=== PATIENT | female | born 1970 ===

== ENCOUNTER 2020-03-19 17:15 | Outpatient (REF) | payer MEDICAID, OTHER, SELFPAY | END 2020-03-19 17:16 | disposition home or self-care (01) | LOC: HO.LAB 17:15 | PROVIDERS: Visit Provider Internal Medicine | DX: Z20.828 Contact with and (suspected) exposure to other viral communicable diseases (principal) | CPT/HCPCS: 87635 ==

== ENCOUNTER → 2020-03-28 14:00 | Outpatient (BNVA) | payer MEDICAID, OTHER, SELFPAY | PROVIDERS: Visit Provider Nurse Practitioner Gerontology | DX: E11.319 Type 2 diabetes mellitus with unspecified diabetic retinopathy without macular edema (principal); E11.42 Type 2 diabetes mellitus with diabetic polyneuropathy; Z79.4 Long term (current) use of insulin; Z79.84 Long term (current) use of oral hypoglycemic drugs; Z71.3 Dietary counseling and surveillance | CPT/HCPCS: 82947; 99214 ==

== ENCOUNTER 2020-04-12 09:07 | Outpatient (REF) | payer MEDICAID, OTHER, SELFPAY ==
[2020-04-12 10:53] LABS: Creatinine Urine 50.13 mg/dL; Microalbum/Creatinine Ratio Ur 37.9 ug/mg cr
[2020-04-12 11:04] LABS: Alanine Aminotransferase 24 U/L (0-31); Albumin Level 4.5 g/dL (3.5-5.0); Alkaline Phosphatase 78 U/L (39-117); Anion Gap 13 (12-20); Aspartate Amino Transferase 24 U/L (5-31); Bilirubin Total 0.2 mg/dL (0.0-1.0); Blood Urea Nitrogen 12 mg/dL (9-16); Calcium 9.1 mg/dL (8.4-10.2); Carbon Dioxide 30 mmol/L (22-29); Chloride 102 mmol/L (96-108); Cholesterol 161 mg/dL; Estimated Glomerular Filt Rate > 60; Glucose Fasting 163 mg/dL (60-99); HDL Cholesterol 67 mg/dL; LDL Cholesterol Calculated 76 mg/dl; Potassium 4.8 mmol/l (3.3-5.1); Sodium 140 mmol/L (135-145); Total Protein 7.5 g/dL (6.5-8.0); Triglycerides 92 mg/dL
[2020-04-13 10:07] LABS: LDL Cholesterol Direct 79 mg/dL (<100)
== END 2020-04-12 09:08 | disposition home or self-care (01) ==
LOC: HO.LAB 09:07
PROVIDERS: PCP Emergency Medicine; Visit Provider Nurse Practitioner Gerontology
DX: E11.319 Type 2 diabetes mellitus with unspecified diabetic retinopathy without macular edema (principal)
CPT/HCPCS: 80053; 80061; 82043; 83721

== ENCOUNTER 2020-04-22 12:19 | Outpatient (REF) | payer MEDICAID, OTHER, SELFPAY | END 2020-04-22 12:20 | disposition home or self-care (01) | LOC: HO.LAB 12:19 | PROVIDERS: Visit Provider Internal Medicine | DX: Z20.828 Contact with and (suspected) exposure to other viral communicable diseases (principal) | CPT/HCPCS: C9803; U0003 ==

== ENCOUNTER 2020-05-16 10:05 | Outpatient (REF) | payer MEDICAID, OTHER, SELFPAY | END 2020-05-16 10:06 | disposition home or self-care (01) | LOC: HO.LAB 10:05 | PROVIDERS: Visit Provider Internal Medicine | DX: Z20.828 Contact with and (suspected) exposure to other viral communicable diseases (principal) | CPT/HCPCS: C9803; U0003 ==

== ENCOUNTER 2020-07-01 16:39 | Outpatient (REF) | payer MEDICAID, OTHER, SELFPAY | END 2020-07-01 16:40 | disposition home or self-care (01) | LOC: HO.LAB 16:39 | PROVIDERS: Visit Provider Internal Medicine | DX: Z20.822 Contact with and (suspected) exposure to COVID-19 (principal) | CPT/HCPCS: 36415; C9803; U0003 ==

== ENCOUNTER → 2020-10-10 14:36 | Outpatient (BNVA) | payer OTHER, SELFPAY | PROVIDERS: PCP Emergency Medicine; Visit Provider Nurse Practitioner Gerontology | DX: E11.319 Type 2 diabetes mellitus with unspecified diabetic retinopathy without macular edema (principal); E78.5 Hyperlipidemia, unspecified | CPT/HCPCS: 82947 ==

== ENCOUNTER 2020-12-11 09:53 | Outpatient (REF) | payer OTHER, SELFPAY ==
[2020-12-11 11:09] LABS: Alanine Aminotransferase 24 U/L (0-31); Albumin Level 4.2 g/dL (3.5-5.0); Alkaline Phosphatase 105 U/L (39-117); Anion Gap 13 (12-20); Aspartate Amino Transferase 23 U/L (5-31); Bilirubin Total 0.4 mg/dL (0.0-1.0); Blood Urea Nitrogen 11 mg/dL (9-16); Calcium 9.6 mg/dL (8.4-10.2); Carbon Dioxide 29 mmol/L (22-29); Chloride 103 mmol/L (96-108); Cholesterol 177 mg/dL; Estimated Glomerular Filt Rate > 60; Glucose Fasting 190 mg/dL (60-99); HDL Cholesterol 53 mg/dL; LDL Cholesterol Calculated 97 mg/dl; Potassium 5.2 mmol/L (3.3-5.1); Sodium 140 mmol/L (135-145); Total Protein 7.3 g/dL (6.5-8.0); Triglycerides 138 mg/dL
[2020-12-11 11:17] LABS: Creatinine Urine 31.63 mg/dL; Microalbumin Urine < 5.0 mg/L
== END 2020-12-11 09:54 | disposition home or self-care (01) ==
LOC: HO.LAB 09:53
PROVIDERS: Visit Provider Nurse Practitioner Gerontology
DX: E11.319 Type 2 diabetes mellitus with unspecified diabetic retinopathy without macular edema (principal); E78.5 Hyperlipidemia, unspecified; E87.5 Hyperkalemia; Z79.4 Long term (current) use of insulin; Z71.3 Dietary counseling and surveillance
CPT/HCPCS: 36415; 80053; 80061; 82043; 82947; 99212

== ENCOUNTER → 2021-12-02 09:40 | Outpatient (BNVA) | payer MEDICAID, OTHER, SELFPAY | PROVIDERS: PCP Nurse Practitioner; Visit Provider Nurse Practitioner Gerontology | DX: E11.319 Type 2 diabetes mellitus with unspecified diabetic retinopathy without macular edema (principal); E78.5 Hyperlipidemia, unspecified; Z79.4 Long term (current) use of insulin | CPT/HCPCS: 82947; 99212 ==

== ENCOUNTER 2021-12-25 09:36 | Outpatient (REF) | payer MEDICAID, OTHER, SELFPAY ==
--- NOTE | ~2021-12-25 | MM_ITS ---
EXAMINATION: MM SCREENING DIGITAL BREAST TOMOSYNTHESIS, BILATERAL CLINICAL INFORMATION: Screening. Asymptomatic. The lifetime risk of breast cancer based on the Tyrer-Cuzick Model is 8.6%. COMPARISON: Mammography: October 07, 2017 and studies dating back to February 19, 2011 TECHNIQUE: Digital breast tomosynthesis is performed in both the craniocaudal and mediolateral oblique views along with computer-aided detection (CAD). Synthesized 2D images are generated from the tomosynthesis. FINDINGS: There are scattered areas of fibroglandular density (ACR BI-RADS breast composition Category b). There are no significant masses, abnormal calcifications, or other abnormalities. MM/MM tomosynthesis screening BI IMPRESSION: There are no significant changes from prior study. ASSESSMENT: BI-RADS 1: Negative RECOMMENDATION: Routine annual mammography screening. This patient's information was entered into a reminder system with a target due date for their next mammogram.
== END 2021-12-25 09:37 | disposition home or self-care (01) ==
LOC: HO.MAMMO 09:36
PROVIDERS: Visit Provider Nurse Practitioner
DX: Z12.31 Encounter for screening mammogram for malignant neoplasm of breast (principal)
CPT/HCPCS: 77063; 77067

== ENCOUNTER 2023-01-27 09:34 | Outpatient (REF) | payer MEDICAID, OTHER, SELFPAY ==
[2023-01-27 11:21] LABS: MANUAL DIFF FLAG NO
[2023-01-27 11:42] LABS: Basophils Percent Auto 0.5 % (0-2); Eosinophils Absolute Auto 0.3 X10*3/uL (0.0-0.4); Eosinophils Percent Auto 4.4 % (0-4); Estimated Average Glucose 258 mg/dL; Hematocrit 40.2 % (37.0-47.0); Hemoglobin 12.5 g/dl (12.0-16.0); Hemoglobin A1c % 10.6 % (<6.0); Imm Gran Abs Auto 0.02 X10*3/uL (0.00-0.03); Imm Gran Pct Auto 0.3 % (0.0-0.4); Lymphocytes Percent Auto 30.9 % (20-40); Mean Corpuscular HGB Conc 31.1 g/dl (31.0-35.0); Mean Corpuscular Hemoglobin 24.4 pg (27.0-33.0); Mean Corpuscular Volume 78.5 fL (80.0-98.0); Mean Platelet Volume 10.3 fL (9.4-12.3); Monocytes Absolute Auto 0.5 X10*3/uL (0.1-1.2); Monocytes Percent Auto 6.9 % (2-11); Neutrophils Absolute Auto 3.7 x10*3/uL (2.0-8.3); Platelet Count 500 X10*3/uL (160-400); Red Blood Count 5.12 X10*6/uL (4.20-5.50); Red Cell Distribution Width 14.4 % (11.0-16.0); White Blood Count 6.5 X10*3/uL (4.8-10.8)
[2023-01-27 12:11] LABS: Syphilis Screen Nonreactive (Nonreactive)
[2023-01-27 12:18] LABS: HBS Num1 0.59 mIU/mL (0-7.99); HBc Num1 0.13 S/CO (0.00-0.79); HBsAGNum1 0.32 S/CO (0.00-0.99); HIV AB/AG Nonreactive (Nonreactive); HIV Num 1 0.06 S/CO (0.00-0.99); Hepatitis B Core Antibody Nonreactive (Nonreactive); Hepatitis B Surface Antigen Negative (Negative); ~Hepatitis B Surface Antibody NONREACTIVE (Nonreactive)
[2023-01-27 12:20] LABS: ~HepC Num1 0.09 S/CO (0.00-0.79); ~Hepatitis C Antibody Nonreactive (Nonreactive)
[2023-01-27 12:33] LABS: Microalbumin Urine < 5.0 mg/L
[2023-01-27 12:42] LABS: Alanine Aminotransferase 24 U/L (0-31); Albumin Level 4.1 g/dL (3.5-5.0); Alkaline Phosphatase 118 U/L (39-117); Anion Gap 15 (12-20); Aspartate Amino Transferase 23 U/L (5-31); Bilirubin Total 0.2 mg/dL (0.0-1.0); Blood Urea Nitrogen 17 mg/dL (9-16); Calcium 9.7 mg/dL (8.4-10.2); Carbon Dioxide 29 mmol/L (22-29); Chloride 100 mmol/L (96-108); Cholesterol 191 mg/dL (<200); Estimated Glomerular Filt Rate > 60; Glucose Random 233 mg/dL (60-115); HDL Cholesterol 55 mg/dL (>40); LDL Cholesterol Calculated 76 mg/dL (<100); Potassium 4.8 mmol/L (3.3-5.1); Sodium 139 mmol/L (135-145); Total Protein 7.9 g/dL (6.5-8.0); Triglycerides 303 mg/dL (<150)
[2023-01-27 12:45] LABS: TSH reflex Free T4 0.72 uIU/mL (0.32-4.0)
[2023-01-27 12:47] LABS: Folate 15.4 ng/mL (> or = 4.0); Vitamin B12 944 pg/mL (200-900)
[2023-01-27 13:18] LABS: CT PCR NOT DETECTED (Not Detect.); NG PCR NOT DETECTED (Not Detect.)
[2023-01-27 18:08] LABS: Iron 51 mcg/dL (30-160); Percent Iron Saturation 13 % (15-50); Total Iron Binding Capacity 407 mcg/dL (228-428); Unsaturated Iron Binding 356 ug/dL
[2023-01-27 18:23] LABS: Ferritin 17 ng/mL (10-250)
[2023-01-30 00:13] LABS: TS Negative Control Passed; TS Panel A 0; TS Panel B 2; TS Positive Control Passed; TSpotTB Negative (Negative)
[2023-02-01 01:54] LABS: VITAMIN D (1,25 OH) D3 51 pg/mL; Vit D (1,25-Dihydroxy) Total 51 pg/mL (18-72); Vitamin D (1,25 OH) D2 <8 pg/mL
== END 2023-01-27 09:35 | disposition home or self-care (01) ==
LOC: HO.HHCL 09:34
PROVIDERS: Visit Provider Student in an Organized Health Care Education/Training Program
DX: Z00.00 Encounter for general adult medical examination without abnormal findings (principal)
CPT/HCPCS: 0353U; 80053; 80061; 82043; 82607; 82652; 82728; 82746; 83036; 83540; 84443; 85025; 86481; 86704; 86706; 86780; 86803; 87340; 87389

== ENCOUNTER 2023-02-15 13:37 | Outpatient (REF) | payer MEDICAID, OTHER, SELFPAY ==
--- NOTE | ~2023-02-15 | MM_ITS ---
EXAMINATION: MM SCREENING DIGITAL BREAST TOMOSYNTHESIS, BILATERAL CLINICAL INFORMATION: Screening. Asymptomatic. COMPARISON: Mammography: This study is compared with prior exams dating back to 2010. TECHNIQUE: Digital breast tomosynthesis is performed in both the craniocaudal and mediolateral oblique views along with computer-aided detection (CAD). Synthesized 2D images are generated from the tomosynthesis. FINDINGS: There are scattered areas of fibroglandular density (ACR BI-RADS breast composition Category b). There are no significant masses, abnormal calcifications, or other abnormalities. MM/MM tomosynthesis screening BI IMPRESSION: No mammographic evidence of malignancy. ASSESSMENT: BI-RADS BI-RADS 1 - Negative RECOMMENDATION: Routine annual mammography screening. 1 year F/U This examination should not preclude the clinical evaluation of a suspicious palpable abnormality. This patient's information was entered into a reminder system with a target due date for their next mammogram.
== END 2023-02-15 13:38 | disposition home or self-care (01) ==
LOC: HO.MAMMO 13:37
PROVIDERS: PCP Student in an Organized Health Care Education/Training Program; Visit Provider Student in an Organized Health Care Education/Training Program
DX: Z12.31 Encounter for screening mammogram for malignant neoplasm of breast (principal)
CPT/HCPCS: 77063; 77067

== ENCOUNTER → 2023-02-15 13:45 | Outpatient (BNV) | payer MEDICAID, SELFPAY | PROVIDERS: PCP Student in an Organized Health Care Education/Training Program; Visit Provider Radiology Diagnostic Radiology | DX: Z12.31 Encounter for screening mammogram for malignant neoplasm of breast (principal) | CPT/HCPCS: 77063; 77067 ==

== ENCOUNTER 2023-07-29 11:07 | Outpatient (REF) | payer MEDICAID, SELFPAY ==
[2023-07-29 13:21] LABS: Hematocrit 41.2 % (37.0-47.0); Mean Corpuscular HGB Conc 31.6 g/dl (31.0-35.0); Mean Corpuscular Hemoglobin 24.4 pg (27.0-33.0); Mean Corpuscular Volume 77.4 fL (80.0-98.0); Mean Platelet Volume 10.6 fL (9.4-12.3); Platelet Count 481 X10*3/uL (160-400); Red Blood Count 5.32 X10*6/uL (4.20-5.50); Red Cell Distribution Width 14.7 % (11.0-16.0); White Blood Count 6.7 X10*3/uL (4.8-10.8)
[2023-07-29 13:34] LABS: Estimated Average Glucose 237 mg/dL; Hemoglobin A1c % 9.9 % (<6.0)
[2023-07-29 13:49] LABS: Alanine Aminotransferase 32 U/L (0-31); Albumin Level 4.6 g/dL (3.5-5.0); Alkaline Phosphatase 87 U/L (39-117); Anion Gap 17 (12-20); Aspartate Amino Transferase 32 U/L (5-31); Bilirubin Total 0.3 mg/dL (0.0-1.0); Blood Urea Nitrogen 13 mg/dL (9-16); Calcium 10.3 mg/dL (8.4-10.2); Carbon Dioxide 28 mmol/L (22-29); Chloride 101 mmol/L (96-108); Cholesterol 169 mg/dL (<200); Estimated Glomerular Filt Rate > 60; Glucose Random 140 mg/dL (60-115); HDL Cholesterol 61 mg/dL (>40); Iron 52 mcg/dL (30-160); LDL Cholesterol Calculated 81 mg/dL (<100); Percent Iron Saturation 11 % (15-50); Potassium 4.8 mmol/L (3.3-5.1); Sodium 141 mmol/L (135-145); Total Iron Binding Capacity 484 mcg/dL (228-428); Total Protein 8.4 g/dL (6.5-8.0); Triglycerides 138 mg/dL (<150); Unsaturated Iron Binding 432 ug/dL
[2023-07-29 13:54] LABS: Creatinine Urine 42.56 mg/dL; Microalbum/Creatinine Ratio Ur 39.9 ug/mg cr (<30)
[2023-07-29 14:06] LABS: Ferritin 12 ng/mL (10-250)
[2023-07-29 14:07] LABS: Folate 14.9 ng/mL (> or = 4.0); Vitamin B12 937 pg/mL (200-900)
== END 2023-07-29 11:08 | disposition home or self-care (01) ==
LOC: HO.HHCL 11:07
PROVIDERS: Visit Provider Student in an Organized Health Care Education/Training Program
DX: E11.69 Type 2 diabetes mellitus with other specified complication (principal); Z79.4 Long term (current) use of insulin
CPT/HCPCS: 36415; 80053; 80061; 82043; 82570; 82607; 82728; 82746; 83036; 83540; 85027

== ENCOUNTER 2023-09-07 10:16 | Outpatient (AMB) | payer MEDICAID, SELFPAY ==
--- NOTE | 2023-09-07 10:28 | MHC.OFFVIS ---
Intake Vital Signs 09/07/23 10:34 Height 4 ft 11 in Weight 138 lb BMI 27.9 BP 102/60 Blood Pressure Location Lt brachial Position Sitting Pulse 99 Intake Visit Reasons: Colonoscopy Screening Intake Note: Patient new consult for 1st pre colonoscopy screening. Patient cc: no appetite and denies any other GI issues. Industrial Arts Teacher Required: Yes Industrial Arts Teacher Name: rocky Accompanied by: Daughter Allergies CITALOPRAM Allergy (Mild, Uncoded 12/11/20 15:01) rash HYDROBROMIDE Allergy (Unknown, Uncoded 12/11/20 15:01) unknown Medication List - Last Reconciled 09/07/23 by Ksenia Bonilla PA-C alcohol swabs (Alcohol Prep Pads) pad topical aspirin 81 mg PO DAILY atorvastatin 40 mg PO BEDTIME blood sugar diagnostic As directed blood-glucose meter (FreeStyle Lite Meter kit) As directed three times a day ergocalciferol (vitamin D2) 1,250 mcg PO QWEEK fenofibrate micronized 134 mg PO DAILY flash glucose scanning reader (FlazioStyle Shanelle 2 [place]) As directed flash glucose sensor (FreeStyle Shanelle 2 Sensor kit) As directed every 2 weeks gabapentin 100 mg PO insulin degludec (Tresiba FlexTouch U-200 insulin) 20 units (0.1 mL) subcut BEDTIME lancets (TRUEplus Lancets) As directed lisinopril 5 mg PO DAILY loratadine 10 mg PO DAILY PRN metformin 1,000 mg (2 x 500 mg) PO BID byzffgtbawje-qcsx-vimcl acid 18-400 mg-mcg 1 tab PO QAM omeprazole 20 mg PO QAM pen needle, diabetic (Pentips) As directed repaglinide 1 tab breakfast and dinner, 3 tabs lunch orally 3 times a day; 30 days venlafaxine ER 37.5 mg PO HPI HPI Comments History of Present Illness Details A 53 y/o female -referred for index screening colonoscopy- she does not know what a colonoscopy is Discussed procedure Normal bowels Appetite is good She has no GI or general complaints [facility] Medical History Dyslipidemia Hypertriglyceridemia Retinopathy Type 2 diabetes mellitus with unspecified diabetic retinopathy without macular edema Surgical History Hx of mammogram Hx of section Family History Father CVD (cardiovascular disease) Mother Diabetes mellitus Sister Diabetes mellitus Social History Household Members: Spouse Alcohol intake: never Patient Tobacco Use Status: Never used Tobacco Review of Systems Const All systems reviewed & are unremarkable except as noted in HPI and below GI Denies abdominal pain and Denies change in bowel habits Physical Exam Vital Signs: Last Vital Signs Pulse 99 09/07/23 10:34 BP 102/60 09/07/23 10:34 BMI result Body Mass Index 27.9 Const General: cooperative, healthy appearing and comfortable Eyes Sclerae: sclerae normal Cardio Rate: regular rate Rhythm: regular rhythm Heart sounds: S1 normal heart sound present and S2 normal heart sound present GI Palpation (GI): Soft to palpation and nontender Auscultation: normal bowel sounds Skin General skin exam: no rashes or lesions noted Extrem General: Yes full ROM Psych Appearance: well kempt Mental Status: mental status grossly normal Speech and movement: Clear speech present Affect: normal affect Attitude: cooperative Assessment & Plan Assessment & Plan (1) Encounter for screening colonoscopy: Comment: Index screening colonoscopy-not a great historian reviewed medicine list Code(s): Z12.11 - Encounter for screening for malignant neoplasm of colon Plan Colonoscopy MG prep pls review meds 1/2 dose insulin connor before No oral DM day before No DM meds morning of procedure Orders: Orders Colonoscopy - GI Use Only 09/07/23 Z12.11 - Encounter for screening for malignant neoplasm of colon Medications: New bisacodyl (Dulcolax (bisacodyl)) Day before procedure @ 12 noon Take 4 tablets by mouth followed by large glass of water 20 mg (4 x 5 mg) PO ONCE 1 day PRN 4 tabs 0RF colonoscopy prep Z12.11 - Encounter for screening for malignant neoplasm of colon polyethylene glycol 3350 (Miralax) Take as directed by mouth the day before your procedure. 238 grams PO ONCE 1 day PRN 238 grams 0RF laxative effect Patient Instructions: Colonoscopy Needs escort rare risks MG prep, reviewed- lit given pls review meds 1/2 dose insulin connor before No oral DM day before No DM meds morning of procedure Have up-to-date medication list available for reference No major barriers to understanding worried Coding Level of Care Code New Pt Level 3 (45398) Diagnoses Encounter for screening colonoscopy Z12.11 Time Spent (min) 30 Comment [id number]
[2023-09-07 10:34] VITALS: BP 102/60; PULSE 99; BMI 27.9
== END 2023-09-07 12:21 | disposition home or self-care (01) ==
PROVIDERS: PCP Student in an Organized Health Care Education/Training Program; Visit Provider Physician Assistant
DX: Z12.11 Encounter for screening for malignant neoplasm of colon (principal); Z01.818 Encounter for other preprocedural examination
CPT/HCPCS: 99203

== ENCOUNTER → 2023-09-07 10:16 | Outpatient (BNVA) | payer MEDICAID, SELFPAY | PROVIDERS: PCP Student in an Organized Health Care Education/Training Program; Visit Provider Physician Assistant | DX: Z12.11 Encounter for screening for malignant neoplasm of colon (principal) | CPT/HCPCS: 99212 ==

== ENCOUNTER → 2023-09-10 13:27 | Outpatient (BNVA) | payer OTHER, SELFPAY | PROVIDERS: PCP Student in an Organized Health Care Education/Training Program; Visit Provider Physician Assistant | DX: Z09 Encounter for follow-up examination after completed treatment for conditions other than malignant neoplasm (principal); S06.0X1A Concussion with loss of consciousness of 30 minutes or less, initial encounter; W01.10XA Fall on same level from slipping, tripping and stumbling with subsequent striking against unspecified object, initial encounter; M54.2 Cervicalgia; R07.81 Pleurodynia | CPT/HCPCS: 99204 ==

== ENCOUNTER → 2023-09-17 10:56 | Outpatient (BNVA) | payer OTHER, SELFPAY | PROVIDERS: PCP Student in an Organized Health Care Education/Training Program; Visit Provider Physician Assistant | DX: M54.2 Cervicalgia (principal); S06.0X0A Concussion without loss of consciousness, initial encounter; X58.XXXA Exposure to other specified factors, initial encounter; R42 Dizziness and giddiness; R07.89 Other chest pain | CPT/HCPCS: 99214 ==

== ENCOUNTER → 2023-09-24 11:25 | Outpatient (BNVA) | payer OTHER, SELFPAY | PROVIDERS: PCP Student in an Organized Health Care Education/Training Program; Visit Provider Physician Assistant | DX: M54.2 Cervicalgia (principal); S06.0X1A Concussion with loss of consciousness of 30 minutes or less, initial encounter; W01.10XA Fall on same level from slipping, tripping and stumbling with subsequent striking against unspecified object, initial encounter | CPT/HCPCS: 99213 ==

== ENCOUNTER → 2023-10-01 11:33 | Outpatient (BNVA) | payer OTHER, SELFPAY | PROVIDERS: PCP Student in an Organized Health Care Education/Training Program; Visit Provider Physician Assistant | DX: S06.0X1A Concussion with loss of consciousness of 30 minutes or less, initial encounter (principal); W01.10XA Fall on same level from slipping, tripping and stumbling with subsequent striking against unspecified object, initial encounter; M54.2 Cervicalgia; M54.42 Lumbago with sciatica, left side | CPT/HCPCS: 99213 ==

== ENCOUNTER → 2023-10-14 11:24 | Outpatient (BNVA) | payer OTHER, SELFPAY | PROVIDERS: PCP Student in an Organized Health Care Education/Training Program; Visit Provider Physician Assistant | DX: R51.9 Headache, unspecified (principal); M54.2 Cervicalgia | CPT/HCPCS: 99214 ==

== ENCOUNTER → 2023-10-28 11:02 | Outpatient (BNVA) | payer OTHER, SELFPAY | PROVIDERS: PCP Student in an Organized Health Care Education/Training Program; Visit Provider Physician Assistant | DX: S06.0X1D Concussion with loss of consciousness of 30 minutes or less, subsequent encounter (principal); W01.10XD Fall on same level from slipping, tripping and stumbling with subsequent striking against unspecified object, subsequent encounter; R42 Dizziness and giddiness; M54.2 Cervicalgia | CPT/HCPCS: 99214 ==

== ENCOUNTER → 2023-11-18 11:17 | Outpatient (BNVA) | payer OTHER, SELFPAY | PROVIDERS: PCP Student in an Organized Health Care Education/Training Program; Visit Provider Physician Assistant Medical | DX: F07.81 Postconcussional syndrome (principal); R42 Dizziness and giddiness; M54.2 Cervicalgia; M24.812 Other specific joint derangements of left shoulder, not elsewhere classified | CPT/HCPCS: 99213 ==

== ENCOUNTER → 2023-12-01 11:11 | Outpatient (BNVA) | payer OTHER, SELFPAY | PROVIDERS: PCP Student in an Organized Health Care Education/Training Program; Visit Provider Physician Assistant | DX: S06.0X1D Concussion with loss of consciousness of 30 minutes or less, subsequent encounter (principal); W01.10XD Fall on same level from slipping, tripping and stumbling with subsequent striking against unspecified object, subsequent encounter; R42 Dizziness and giddiness; M54.2 Cervicalgia; M25.512 Pain in left shoulder | CPT/HCPCS: 99213 ==

== ENCOUNTER 2023-12-21 08:09 | Outpatient (REF) | payer OTHER, SELFPAY ==
--- NOTE | ~2023-12-21 | XR_ITS ---
EXAMINATION: XR SHOULDER, LEFT CLINICAL INFORMATION: Pain left shoulder. COMPARISON: None available. TECHNIQUE: Two views of the left shoulder. FINDINGS: Advanced degenerative changes with joint space narrowing and hypertrophic change in the acromioclavicular joint. Amorphous soft tissue calcification adjacent to the greater tuberosity suggests calcific tendinitis. A 5 mm nodule in the periphery of the left upper lobe with adjacent smaller pulmonary nodules should be evaluated with dedicated views of the chest. XR/XR shoulder LT min 2V IMPRESSION: 1. Advanced degenerative changes in the acromioclavicular joint. 2. Amorphous soft tissue calcification adjacent to the greater tuberosity suggests calcific tendinitis. 3. A 5 mm nodule in the periphery of the left upper lobe with adjacent smaller pulmonary nodules should be evaluated with dedicated views of the chest.
== END 2023-12-21 08:10 | disposition home or self-care (01) ==
LOC: HO.HOSX 08:09
PROVIDERS: Visit Provider Orthopaedic Surgery
DX: M75.42 Impingement syndrome of left shoulder (principal)
CPT/HCPCS: 73030; 99212

== ENCOUNTER 2023-12-21 08:57 | Outpatient (AMB) | payer OTHER, SELFPAY ==
--- NOTE | 2023-12-21 09:05 | A.OFFVIS_ITS ---
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 The patient states that she her neck and shoulder on 09/08/2023 when she fell at work. Since that time her symptoms have gotten worse. The patient did go to formal physical therapy which gave her minimal relief. She has also tried Tylenol and anti-inflammatory medicines which gave her mild relief. She states that she has difficulty lifting her left hand above shoulder height. The patient states that she did have an MRI at [facility] . She is not sure if the MRI was of her left shoulder or her cervical spine. The patient's MRI is not available today. Allergies CITALOPRAM Allergy (Mild, Uncoded 12/11/20 15:01) rash HYDROBROMIDE Allergy (Unknown, Uncoded 12/11/20 15:01) unknown Medication List - Last Reconciled 12/21/23 by Kristopher Ross MD alcohol swabs (Alcohol Prep Pads) pad topical aspirin 81 mg PO DAILY atorvastatin 40 mg PO BEDTIME bisacodyl (Dulcolax (bisacodyl)) 20 mg (4 x 5 mg) PO ONCE PRN 1 day blood sugar diagnostic As directed blood-glucose meter (FreeStyle Lite Meter kit) As directed three times a day cyclobenzaprine 5 mg PO BEDTIME PRN cyclobenzaprine 5 mg PO BEDTIME PRN ergocalciferol (vitamin D2) 1,250 mcg PO QWEEK fenofibrate micronized 134 mg PO DAILY flash glucose scanning reader (FreeStyle Shanelle 2 [place]) As directed flash glucose sensor (FreeStyle Shanelle 2 Sensor kit) As directed every 2 weeks gabapentin 100 mg PO insulin degludec (Tresiba FlexTouch U-200 insulin) 20 units (0.1 mL) subcut BEDTIME lancets (TRUEplus Lancets) As directed lidocaine 5% 1 patch topically 1 patch daily q 12 hours; leave on most painful area for up to 12 hrs lisinopril 5 mg PO DAILY loratadine 10 mg PO DAILY PRN magnesium oxide 400 mg PO DAILY meclizine 25 mg PO BID PRN metformin 1,000 mg (2 x 500 mg) PO BID mtrmlxbabbun-dmun-ggmvr acid 18-400 mg-mcg 1 tab PO QAM naproxen 500 mg PO BID PRN omeprazole 20 mg PO QAM ondansetron HCl 8 mg PO Q8-12H PRN 4 days pen needle, diabetic (Pentips) As directed polyethylene glycol 3350 (Miralax) 238 grams PO ONCE PRN 1 day repaglinide 1 tab breakfast and dinner, 3 tabs lunch orally 3 times a day; 30 days riboflavin (vitamin B2) 400 mg PO DAILY venlafaxine ER 37.5 mg PO PFSH Medical History Dyslipidemia Hypertriglyceridemia Retinopathy Type 2 diabetes mellitus with unspecified diabetic retinopathy without macular edema Surgical History Hx of mammogram Hx of section Family History Father CVD (cardiovascular disease) Mother Diabetes mellitus Sister Diabetes mellitus Social History Household Members: Spouse Alcohol intake: never Patient Tobacco Use Status: Never used Tobacco Physical Exam Vital Signs: BMI result Body Mass Index 27.9 Const Other: Well-nourished well-developed very friendly female awake alert and oriented x3 in no acute distress Extrem Other: Left shoulder examination shows decreased range of motion when compared to her right shoulder, positive impingement signs, 4+ out of 5 strength with supraspinatus testing, no instability Results Reviewed Results Reviewed: X-rays of the patient's left shoulder show moderate acromioclavicular joint narrowing, a type 2 acromion, a small calcium deposit within the supraspinatus tendon, no acute bony abnormalities Assessment & Plan Assessment & Plan (1) Left shoulder pain: Code(s): M25.512 - Pain in left shoulder Category: Medical Plan Ms. Sanchez presents with neck pain which radiates into her left arm as well as left shoulder pain due to impingement syndrome and possible rotator cuff tearing. The patient states that she did have an MRI of either her neck or left shoulder recently. Those films are not available today. The patient states that she will get the films and report. She will then make a follow-up appointment with me to discuss the findings and treatment options. She will continue with her range of motion exercises in the meantime to prevent stiffness. Feel free to call me at any time should questions regarding her orthopedic management arise. I spent 20 minutes in reviewing the patient's records and imaging studies, will ansari the patient and documenting in the medical record. Orders: Orders XR shoulder LT min 2V 12/21/23 M25.512 - Pain in left shoulder Coding Level of Care Code Est Pt Level 3 (60115) Diagnoses Left shoulder pain M25.512
[2023-12-21 09:06] VITALS: BMI 27.9
[2023-12-21 09:27] VITALS: BMI 27.9
== END 2023-12-21 09:44 | disposition home or self-care (01) ==
PROVIDERS: PCP Student in an Organized Health Care Education/Training Program; Visit Provider Orthopaedic Surgery
DX: M25.512 Pain in left shoulder (principal)
CPT/HCPCS: 99213

== ENCOUNTER 2024-01-12 13:43 | Outpatient (AMB) | payer OTHER, SELFPAY ==
--- NOTE | 2024-01-12 13:45 | A.OFFVIS_ITS ---
Intake Visit Reasons: Left shoulder pain, Neck pain Intake Note: Lottie a 53 year old female who presents with complaints of neck pain which radiates down her left arm to her left hand as well as left shoulder pain. The patient states that she her neck and shoulder on 09/08/2023 when she fell at work. Since that time her symptoms have gotten worse. The patient did go to formal physical therapy which gave her minimal relief. She has also tried Tylenol and anti-inflammatory medicines which gave her mild relief. She states that she has difficulty lifting her left hand above shoulder height. The patient did have an MRI of her cervical spine performed at [facility] in [place] on 11/10/2023. . Tire Repair Mechanic Required: Yes Tire Repair Mechanic Language: Foam Machine Operator Services: Tire Repair Mechanic Present Tire Repair Mechanic Name: OmerSARAI/WILSON Information Interpreted: non-clinical & clinical Allergies CITALOPRAM Allergy (Mild, Uncoded 01/12/24 13:45) rash HYDROBROMIDE Allergy (Unknown, Uncoded 01/12/24 13:45) unknown Medication List - Last Reconciled 01/12/24 by Kristopher Ross MD alcohol swabs (Alcohol Prep Pads) pad topical aspirin 81 mg PO DAILY atorvastatin 40 mg PO BEDTIME bisacodyl (Dulcolax (bisacodyl)) 20 mg (4 x 5 mg) PO ONCE PRN 1 day blood sugar diagnostic As directed blood-glucose meter (FreeStyle Lite Meter kit) As directed three times a day cyclobenzaprine 5 mg PO BEDTIME PRN cyclobenzaprine 5 mg PO BEDTIME PRN ergocalciferol (vitamin D2) 1,250 mcg PO QWEEK fenofibrate micronized 134 mg PO DAILY flash glucose scanning reader (FreeStyle Shanelle 2 [place]) As directed flash glucose sensor (FreeStyle Shanelle 2 Sensor kit) As directed every 2 weeks gabapentin 100 mg PO insulin degludec (Tresiba FlexTouch U-200 insulin) 20 units (0.1 mL) subcut BEDTIME lancets (TRUEplus Lancets) As directed lidocaine 5% 1 patch topically 1 patch daily q 12 hours; leave on most painful area for up to 12 hrs lisinopril 5 mg PO DAILY loratadine 10 mg PO DAILY PRN magnesium oxide 400 mg PO DAILY meclizine 25 mg PO BID PRN metformin 1,000 mg (2 x 500 mg) PO BID plnffxbjxzos-jgsk-kqnsp acid 18-400 mg-mcg 1 tab PO QAM naproxen 500 mg PO BID PRN omeprazole 20 mg PO QAM ondansetron HCl 8 mg PO Q8-12H PRN 4 days pen needle, diabetic (Pentips) As directed polyethylene glycol 3350 (Miralax) 238 grams PO ONCE PRN 1 day repaglinide 1 tab breakfast and dinner, 3 tabs lunch orally 3 times a day; 30 days riboflavin (vitamin B2) 400 mg PO DAILY venlafaxine ER 37.5 mg PO PFSH Medical History Retinopathy Hypertriglyceridemia Type 2 diabetes mellitus with unspecified diabetic retinopathy without macular edema Dyslipidemia Surgical History Hx of mammogram Hx of section Family History Father CVD (cardiovascular disease) Mother Diabetes mellitus Sister Diabetes mellitus Social History Household Members: Spouse Alcohol intake: never Patient Tobacco Use Status: Never used Tobacco Physical Exam Const Other: Well-nourished well-developed very friendly female awake alert and oriented x3 in no acute distress Neck Other: Cervical spine examination shows left-sided paraspinal muscle tenderness, pain with range of motion, positive Spurling's test Extrem Other: Left shoulder examination shows decreased range of motion when compared to her right shoulder, 4+ out of 5 strength with supraspinatus testing, positive impingement signs, tenderness over her acromioclavicular joint, no instability Results Reviewed Results Reviewed: MRI report of the patient's cervical spine shows evidence of ?mild uncovertebral joint osteophytes bilaterally more on left, mild left neural foraminal narrowing? most significant at levels C3-C4 and C6-C7 Assessment & Plan Assessment & Plan (1) Neck pain: Code(s): M54.2 - Cervicalgia Category: Medical (2) Left shoulder pain: Code(s): M25.512 - Pain in left shoulder Category: Medical Plan Ms. Sanchez presents with neck pain due to cervical spondylosis as well as left shoulder pain and weakness possibly due to rotator cuff tearing. Thus, I will send the patient for an MRI of her left shoulder for further evaluation. I will also have her evaluated by Dr. Machuca from our pain management department to further discuss the treatment options for her neck pain. I will see the patient back following her left shoulder MRI to discuss the findings and treatment options. Feel free to call me at any time should questions regarding her orthopedic management arise. I spent 22 minutes in reviewing the patient's records and imaging studies, seeing the patient and documenting in the medical record. Orders: Orders MR shoulder LT wo con Today M25.512 - Pain in left shoulder Referrals Pain Management Referral M54.2 - Cervicalgia Coding Level of Care Code Est Pt Level 3 (18080) Diagnoses Neck pain M54.2 Left shoulder pain M25.512
== END 2024-01-12 14:04 | disposition home or self-care (01) ==
PROVIDERS: PCP Student in an Organized Health Care Education/Training Program; Visit Provider Orthopaedic Surgery
DX: M25.512 Pain in left shoulder (principal); M47.892 Other spondylosis, cervical region
CPT/HCPCS: 99213

== ENCOUNTER → 2024-01-12 13:43 | Outpatient (BNVA) | payer OTHER, SELFPAY | PROVIDERS: PCP Student in an Organized Health Care Education/Training Program; Visit Provider Orthopaedic Surgery | DX: M47.812 Spondylosis without myelopathy or radiculopathy, cervical region (principal); M25.512 Pain in left shoulder | CPT/HCPCS: 99212 ==

== ENCOUNTER 2024-01-25 12:22 | Outpatient (REF) | payer OTHER, SELFPAY ==
--- NOTE | ~2024-01-25 | MR_ITS ---
EXAMINATION: MR SHOULDER WITHOUT CONTRAST, LEFT CLINICAL INFORMATION: Left shoulder pain. Decreased range of motion. Injury on 09/08/2023. COMPARISON: Left shoulder radiographs dated 12/21/2023. TECHNIQUE: MRI of the shoulder without contrast was performed on a high-field scanner. FINDINGS: ROTATOR CUFF: Within the distal supraspinatus tendon there is lobulated low T1/low T2 signal measuring up to 1.6 x 1.0 cm with adjacent edema, consistent with calcific tendinitis as seen on the prior radiographs. No measurable rotator cuff tendon tear. No muscle atrophy or fatty infiltration. BICEPS: Small amount of fluid within the proximal long head biceps tendon sheath, consistent with mild tenosynovitis. No tendon tear. CORACOACROMIAL ARCH: The undersurface of the acromion is curved with no subacromial spur. Mild acromioclavicular osteoarthritis. Trace fluid and edema within the subacromial subdeltoid bursa, consistent with minimal bursitis. LABRUM/CAPSULE: No labral tear. Intact joint capsule. GLENOHUMERAL JOINT/MARROW: Intact articular cartilage. No acute osseous injury. MR/MR shoulder LT wo con IMPRESSION: 1. Distal supraspinatus calcific tendinitis as seen on the prior radiographs. No measurable rotator cuff tendon tear. 2. Mild proximal long head biceps tenosynovitis without a measurable tendon tear. 3. Mild acromioclavicular osteoarthritis. Minimal subacromial subdeltoid bursitis. Electronically signed by: Cale Harrell MD 01/31/2024 05:46 AM EDT
== END 2024-01-25 12:23 | disposition home or self-care (01) ==
LOC: HO.MRI 12:22
PROVIDERS: PCP Student in an Organized Health Care Education/Training Program; Visit Provider Orthopaedic Surgery
DX: M25.512 Pain in left shoulder (principal)
CPT/HCPCS: 73221

== ENCOUNTER 2024-02-02 08:58 | Outpatient (AMB) | payer OTHER, SELFPAY ==
--- NOTE | 2024-02-02 09:01 | MHC.OFFVIS ---
Vital Signs 02/02/24 09:02 Height 4 ft 11 in Weight 138 lb BMI 27.9 Intake Visit Reasons: OV- MRI Review Left Shoulder Intake Note: Lottie a 53 year old female who presents with complaints of neck pain which radiates down her left arm to her left hand as well as left shoulder pain. The patient states that she her neck and shoulder on 09/08/2023 when she fell at work. Since that time her symptoms have gotten worse. The patient reports mild weakness when lifting her left hand above shoulder height. She has not had a cortisone injection. She has done physical therapy exercises which aggravated her pain. 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 Search Manager Required: Yes Search Manager Language: Human Resources Training Manager Name: Paul [phone] Allergies CITALOPRAM Allergy (Mild, Uncoded 01/12/24 13:45) rash HYDROBROMIDE Allergy (Unknown, Uncoded 01/12/24 13:45) unknown Medication List - Last Reconciled 02/02/24 by Kristopher Ross MD alcohol swabs (Alcohol Prep Pads) pad topical aspirin 81 mg PO DAILY atorvastatin 40 mg PO BEDTIME bisacodyl (Dulcolax (bisacodyl)) 20 mg (4 x 5 mg) PO ONCE PRN 1 day blood sugar diagnostic As directed blood-glucose meter (FreeStyle Lite Meter kit) As directed three times a day cyclobenzaprine 5 mg PO BEDTIME PRN cyclobenzaprine 5 mg PO BEDTIME PRN ergocalciferol (vitamin D2) 1,250 mcg PO QWEEK fenofibrate micronized 134 mg PO DAILY flash glucose scanning reader (FreeStyle Shanelle 2 [place]) As directed flash glucose sensor (FreeStyle Shanelle 2 Sensor kit) As directed every 2 weeks gabapentin 100 mg PO insulin degludec (Tresiba FlexTouch U-200 insulin) 20 units (0.1 mL) subcut BEDTIME lancets (TRUEplus Lancets) As directed lidocaine 5% 1 patch topically 1 patch daily q 12 hours; leave on most painful area for up to 12 hrs lisinopril 5 mg PO DAILY loratadine 10 mg PO DAILY PRN magnesium oxide 400 mg PO DAILY meclizine 25 mg PO BID PRN metformin 1,000 mg (2 x 500 mg) PO BID zfmtnoeycgoj-inup-hvuus acid 18-400 mg-mcg 1 tab PO QAM naproxen 500 mg PO BID PRN omeprazole 20 mg PO QAM ondansetron HCl 8 mg PO Q8-12H PRN 4 days pen needle, diabetic (Pentips) As directed polyethylene glycol 3350 (Miralax) 238 grams PO ONCE PRN 1 day repaglinide 1 tab breakfast and dinner, 3 tabs lunch orally 3 times a day; 30 days riboflavin (vitamin B2) 400 mg PO DAILY venlafaxine ER 37.5 mg PO PFSH Medical History Retinopathy Hypertriglyceridemia Type 2 diabetes mellitus with unspecified diabetic retinopathy without macular edema Dyslipidemia Surgical History Hx of mammogram Hx of section Family History Father CVD (cardiovascular disease) Mother Diabetes mellitus Sister Diabetes mellitus Social History Household Members: Spouse Alcohol intake: never Patient Tobacco Use Status: Never used Tobacco Physical Exam Vital Signs: BMI result Body Mass Index 27.9 Const Other: Well-nourished well-developed very friendly female awake alert and oriented x3 in no acute distress Extrem Other: Bilateral upper extremity examination shows good capillary refill, no skin lesions noted, normal sensation light touch Left shoulder examination shows decreased range of motion when compared to her right shoulder, 4+ out of 5 strength with supraspinatus testing, positive impingement signs, tenderness over her acromioclavicular joint, no instability Office Procedures Joint Injection/Aspiration Joint Injection/Aspiration Primary Site: left shoulder Prep: site was prepped using aseptic technique Injected: 40 mg of, DepoMedrol and 1% plain lidocaine Procedure: The patient tolerated the procedure well Coding 20353 - Large joint Procedure code (CPT) selection complete Results Reviewed Results Reviewed: MRI of the patient's left shoulder show severe acromioclavicular joint narrowing, a type 3 acromion, a small calcium deposit within her supraspinatus tendon, signal change within the supraspinatus tendon due to rotator cuff tendinosis versus a small rotator cuff tear Assessment & Plan Assessment & Plan (1) Impingement syndrome of left shoulder: Code(s): M75.42 - Impingement syndrome of left shoulder Category: Medical Plan Ms. Sanchez presents with left shoulder pain due to impingement syndrome, acromioclavicular joint arthritis, calcific tendinitis as well as rotator cuff tendinosis versus a small rotator cuff tear. I had a lengthy discussion with the patient regarding the treatment options. She wishes to hold off on surgery for as long as possible. I agree with this plan. The risks and benefits of a left shoulder cortisone injection were discussed at length with the patient. The patient wished to proceed. She tolerated the injection well. She will continue with her home stretching program to prevent stiffness. She will contact me prior to her follow-up appointment in 3 months should any questions or concerns arise. Feel free to call me at any time should questions regarding her orthopedic management arise. I spent 20 minutes in reviewing the patient's records and imaging studies, seeing the patient and documenting in the medical record. Orders: Orders AMB Joint Injection/Aspiration Today M75.42 - Impingement syndrome of left shoulder Coding Level of Care Code Est Pt Level 3 (95567) Diagnoses Impingement syndrome of left shoulder M75.42 CPT Codes Coding - 52249 Large joint: 18543 - Large joint ([id number])
[2024-02-02 09:02] VITALS: BMI 27.9
== END 2024-02-02 09:24 | disposition home or self-care (01) ==
PROVIDERS: PCP Student in an Organized Health Care Education/Training Program; Visit Provider Orthopaedic Surgery
DX: M75.42 Impingement syndrome of left shoulder (principal); W19.XXXA Unspecified fall, initial encounter; Z04.2 Encounter for examination and observation following work accident
CPT/HCPCS: 20610; 99213

== ENCOUNTER → 2024-02-02 08:58 | Outpatient (BNVA) | payer OTHER, SELFPAY | PROVIDERS: PCP Student in an Organized Health Care Education/Training Program; Visit Provider Orthopaedic Surgery | DX: M75.42 Impingement syndrome of left shoulder (principal) | CPT/HCPCS: 20610; 99212; J1010 ==

== ENCOUNTER 2024-02-03 14:36 | Outpatient (AMB) | payer OTHER, SELFPAY ==
--- NOTE | 2024-02-03 14:37 | A.OFFVIS_ITS ---
Vital Signs 3 02/03/24 14:45 Height 4 ft 11 in Weight 138 lb BMI 27.9 BP 132/70 Blood Pressure Location Rt brachial Position Sitting Pulse 78 Pulse Source Pulse Oximeter Pulse Oximetry (%) 98 Oxygen Delivery Method Room Air Intake Visit Reasons: Cervicalgia Intake Note: Pain today 01/14 Mattress Filler Required: Yes Mattress Filler Language: Renal Dialysis Technician Name: Juan José #[id number] Allergies CITALOPRAM Allergy (Mild, Uncoded 02/04/24 10:35) rash HYDROBROMIDE Allergy (Unknown, Uncoded 02/04/24 10:35) unknown HPI HPI Cervicalgia: Details: Patient is a 53-year-old Chinese-speaking female presents today for initial evaluation of neck pain with radiation into her left upper extremity and left shoulder pain. She was referred to us by Orthopedic office with managing her left shoulder pain. Patient attributes pain to recent work-related injury on 09/08/23 when she fell at work. Patient reports she has tried physical therapy in the past with minimal pain relief but has not tried PT since recent injury. She tried oral and topical medications, gentle stretching with continued symptoms. She has difficulty with overhead reaches, pulling, lifting, reaching backside pocket due to significant left shoulder pain. She received left shoulder cortisone injection yesterday at Orthopedics with 3 months follow-up for potential surgical evaluation. Neck pain is mostly axial with significant muscle spasms, left side worse than the right. Pain affects her daily activities and functioning, mood, sleep, and social interactions. Reports increased chronic headaches due to neck pain. Denies previous spine surgery or injections. Most recent MRI shows mild cervical spondylosis. To this point she has not tried any dedicated conservative treatment in the forms of physical therapy, chiropractic, acupuncture, TENS unit or neck injections. Denies any fever, chills, shortness of breath, chest pain or tightness, dizziness, cough, foot drop, weakness, bladder or bowel dysfunction or saddle anesthesia. Location: Neck radiates to left shoulder, limited left shoulder ROM due to pain Duration: 4 months due to work-related injury, slipped and fell backwards Characteristics of symptom or complaint: Aching, tightness, pulling, shooting, throbbing, spasming, heavy, sore Aggravating or associated factors: Any movement, lifting, pulling, overhead reaches Relieving factors: Tylenol, NSAIDs, gabapentin, lidocaine patches, cyclobenzaprine Treatment: PT, left shoulder cortisone injections 02/02/24 [facility] Medical History (Updated 02/03/24 @ 15:12 by GRISELDA Storey) Back pain Depression BRBPR (bright red blood per rectum) Hyperglycemia Grief Vaginal dryness Retinopathy Hypertriglyceridemia Type 2 diabetes mellitus with unspecified diabetic retinopathy without macular edema Dyslipidemia Surgical History Hx of mammogram Hx of section Family History Father CVD (cardiovascular disease) Mother Diabetes mellitus Sister Diabetes mellitus Social History Household Members: Spouse Alcohol intake: never Patient Tobacco Use Status: Never used Tobacco Advance Directives: No Advance Directives Information Provided: Yes Review of Systems Const All systems reviewed & are unremarkable except as noted in HPI and below Physical Exam Vital Signs: Last Vital Signs Pulse 78 02/03/24 14:45 BP 132/70 02/03/24 14:45 Pulse Ox 98 02/03/24 14:45 Oxygen Delivery Method Room Air 02/03/24 14:45 BMI result Body Mass Index 27.9 General: Appears afebrile. No acute distress. Alert and oriented. Mood and affect appropriate. Follows and participates in conversation appropriately. Respiratory effort is unlabored. No cough. Able to transition from sit to stand unassisted. Ambulates with bilaterally normal heel strike and toe off. Neck Neck: Yes normal visual inspection, Yes full ROM, Yes no lymphadenopathy, Yes supple, No anterior neck swelling, Yes no JVD and No prominent dorsocervical fat pad Back/Spine/Pelvis Cervical Spine: normal cervical lordosis, No collar present, No Lhermitte's sign positive, cervical muscular tenderness, pain with cervical ROM, No Cervical spine scars present, cervical spasm, No Cervical spine tenderness and No step off deformity Thoracic/Lumbar Spine: thoracic and lumbar spine normal to inspection, thoraco- lumbar ROM normal, No thoracic spinal tenderness and No lumbar spinal tenderness Extrem General: Yes capillary refill normal, Yes no clubbing, cyanosis or edema and Yes no calf tenderness Left upper extremity: shoulder/upper arm (Limited ROM due to pain.) Details: tenderness Location: of the A-C joint, over the biceps tendon and over the subacromial bursa and crepitus; no swelling, no ecchymosis, no deformity and no unsual warmth Results Reviewed Results Reviewed: MR SHOULDER WITHOUT CONTRAST LEFT 01/25/24 at [facility] INDICATION: Left shoulder pain. FINDINGS: Examination of the rotator cuff shows mild supraspinatus tendinopathy with localized bursal surface partial tearing proximal to the footprint best seen on series 11 image 13. This is small and is associated with mild subacromial subdeltoid bursitis. Infraspinatus is intact. Teres minor is intact. Subscapularis is intact. Long head biceps tendon is situated within the bicipital groove with no tear or subluxation. Glenohumeral articular cartilage is preserved. Grossly intact anterior and posterior labrum, though evaluation is limited. Superior labrum and biceps anchor are grossly intact. AC joint degenerative changes, mild. Anterior acromion is minimally curved. Rotator cuff muscle bulk is preserved. IMPRESSION: 1. Small bursal surface partial tear distal supraspinatus tendon proximal to the footprint, anterior in location. No full-thickness cuff tear. Mild subacromial subdeltoid bursitis. 2. Mild AC joint hypertrophic changes. Assessment & Plan Assessment & Plan (1) Cervical spondylosis: Code(s): M47.812 - Spondylosis without myelopathy or radiculopathy, cervical region Category: Medical (2) Impingement syndrome of left shoulder: Code(s): M75.42 - Impingement syndrome of left shoulder Category: Medical (3) Neck pain: Code(s): M54.2 - Cervicalgia Category: Medical (4) Left shoulder pain: Code(s): M25.512 - Pain in left shoulder Category: Medical (5) Muscle spasms of neck: Code(s): M62.838 - Other muscle spasm Category: Medical Plan Patient is recommended to start formal physical therapy and establish home exercise program for neck pain and left shoulder pain to reduce pain, spasms and effusion, restore motion and function, improve strength and flexibility and return to functional activities of daily living. Script provided today. No significant pain relief with PT, we will consider diagnostic cervical medial branch blocks as next steps. Follow-up with Orthopedics for left shoulder pain as planned. Patient received left shoulder cortisone injection yesterday. Patient encouraged daily physical activity, adequate hydration, good posture, gentle stretching exercises, well balanced diet, consider TENS unit, acupuncture and massage therapy. All questions and concerns been answered and patient agreed with the treatment plan. Follow-up after PT and sooner as needed. Orders: Orders 2 PT Evaluation and Treatment 02/03/24 M25.512 - Pain in left shoulder, M47.812 - Spondylosis without myelopathy or radiculopathy, cervical region, M54.2 - Cervicalgia, M62.838 - Other muscle spasm, M75.42 - Impingement syndrome of left shoulder Coding Level of Care Code New Pt Level 4 (43402) Complex EM visit Add On G2211 Diagnoses Cervical spondylosis M47.812 Impingement syndrome of left shoulder M75.42 Neck pain M54.2 Left shoulder pain M25.512 Muscle spasms of neck M62.838
[2024-02-03 14:45] VITALS: BP 132/70; PULSE 78; O2SAT 98; BMI 27.9
== END 2024-02-03 15:26 | disposition home or self-care (01) ==
PROVIDERS: PCP Student in an Organized Health Care Education/Training Program; Visit Provider Nurse Practitioner Family
DX: M47.812 Spondylosis without myelopathy or radiculopathy, cervical region (principal); M75.42 Impingement syndrome of left shoulder; M54.2 Cervicalgia; M25.512 Pain in left shoulder; M62.838 Other muscle spasm
CPT/HCPCS: 99204; G2211

== ENCOUNTER → 2024-02-03 14:36 | Outpatient (BNVA) | payer OTHER, SELFPAY | PROVIDERS: PCP Student in an Organized Health Care Education/Training Program; Visit Provider Nurse Practitioner Family | DX: M75.42 Impingement syndrome of left shoulder (principal); M47.812 Spondylosis without myelopathy or radiculopathy, cervical region; M62.838 Other muscle spasm | CPT/HCPCS: 99202 ==

== ENCOUNTER → 2024-02-04 08:58 | Day surgery (SDC) | payer MEDICAID, SELFPAY ==
--- NOTE | 2024-02-03 11:35 | HO.ANESPROP2 ---
HPI - Anesthesia Eval Consult details Narrative: 53yo F for Colonoscopy PMFSH Active Problems Active Problems: All Active Problems Impingement syndrome of left shoulder (Acute) Neck pain (Acute) Left shoulder pain (Acute) Encounter for screening colonoscopy (Acute) Serum potassium elevated (Acute) Type 2 diabetes mellitus with unspecified diabetic retinopathy without macular edema (Acute) Dyslipidemia (Acute) Past Medical History Medical History Retinopathy Hypertriglyceridemia Type 2 diabetes mellitus with unspecified diabetic retinopathy without macular edema Dyslipidemia Family History Family History Father CVD (cardiovascular disease) Mother Diabetes mellitus Sister Diabetes mellitus Surgical History Surgical History Hx of mammogram Hx of section Social History Social History Household Members: Spouse Alcohol intake: never Patient Tobacco Use Status: Never used Tobacco Meds Allergies Allergy/AdvReac Type Severity Reaction Status Date / Time CITALOPRAM Allergy Mild rash Uncoded 01/12/24 13:45 HYDROBROMIDE Allergy Unknown unknown Uncoded 01/12/24 13:45 Home Medications ?Medication ?Instructions ?Recorded ?Confirmed ?Last Taken ?Type alcohol swabs (Alcohol Prep Pads) pad topical 03/28/20 02/02/24 Unknown History aspirin 81 mg tablet,delayed 81 mg PO DAILY 03/28/20 02/02/24 Unknown History release blood sugar diagnostic #10 ea 03/28/20 02/02/24 Unknown History fenofibrate micronized 134 mg 134 mg PO DAILY 03/28/20 02/02/24 Unknown History capsule lisinopril 5 mg tablet 5 mg PO DAILY 03/28/20 02/02/24 Unknown History ergocalciferol (vitamin D2) 1,250 1,250 mcg PO QWEEK 10/10/20 02/02/24 Unknown History mcg (50,000 unit) capsule gabapentin 100 mg capsule 100 mg PO 10/10/20 02/02/24 Unknown History multivitamin-ferrous 1 tab PO QAM 10/10/20 02/02/24 Unknown History fumarate-folic acid 18 mg-400 mcg tablet omeprazole 20 mg capsule,delayed 20 mg PO QAM 10/10/20 02/02/24 Unknown History release venlafaxine 37.5 mg 37.5 mg PO 10/10/20 02/02/24 Unknown History capsule,extended release 24 hr loratadine 10 mg tablet 10 mg PO DAILY PRN allergies 12/11/20 02/02/24 Unknown History lancets 33 gauge (TRUEplus Lancets) #100 ea 12/02/21 02/02/24 Unknown History pen needle, diabetic 32 gauge x #50 ea 12/02/21 02/02/24 Unknown History (Pentips) Assessment and Plan Assessment Anesthesia Assessment: Chart Reviewed
--- NOTE | 2024-02-04 10:16 | MHC.SHP ---
Pre-Procedural Eval Section A - 24 Hr Update-Section A only Date of Service: 02/04/24 Section B - Complete if H&P > 30 days Chief Complaint: screening Relevant Family History (Specify if Yes): No Relevant Social History: None Present Medications: see Short Stay Collaborative assessment Medical History: Significant History (Dyslipidemia Hypertriglyceridemia Retinopathy Type 2 diabetes mellitus with unspecified diabetic retinopathy without macular edema) Allergies: Allergies Allergy/AdvReac Type Severity Reaction Status Date / Time CITALOPRAM Allergy Mild rash Uncoded 01/12/24 13:45 HYDROBROMIDE Allergy Unknown unknown Uncoded 01/12/24 13:45 Plan I have reviewed the history and physical and performed a pertinent physical examination on my patient. No changes have occurred unless specified. Time Spent With Patient Time: Total time managing care of this patient today ____ minutes.
[2024-02-04 10:38] LABS: Glucose, Whole Blood 188 mg/dL (60-115)
--- NOTE | 2024-02-04 12:25 | PC.NURSE ---
Patient in preop. States she ate yesterday, chicken, rice, vegetables, soup. Last meal at 1600. Patient states she finished prep however, still having formed soft brown stool. Dr. Jenkins made aware. Case cancelled. Patient educated on proper prep for colonoscopy.
== END ==
PROVIDERS: PCP Student in an Organized Health Care Education/Training Program; Visit Provider Internal Medicine Gastroenterology
DX: Z12.11 Encounter for screening for malignant neoplasm of colon (principal); Z53.8 Procedure and treatment not carried out for other reasons; E11.319 Type 2 diabetes mellitus with unspecified diabetic retinopathy without macular edema
CPT/HCPCS: 82947

== ENCOUNTER 2024-03-17 09:29 | Outpatient (REF) | payer OTHER, SELFPAY ==
[2024-03-17 11:24] LABS: Hematocrit 39.9 % (37.0-47.0); Mean Corpuscular HGB Conc 32.6 g/dl (31.0-35.0); Mean Corpuscular Hemoglobin 26.3 pg (27.0-33.0); Mean Corpuscular Volume 80.6 fL (80.0-98.0); Mean Platelet Volume 10.8 fL (9.4-12.3); Platelet Count 375 X10*3/uL (160-400); Red Blood Count 4.95 X10*6/uL (4.20-5.50); Red Cell Distribution Width 14.6 % (11.0-16.0); White Blood Count 5.6 X10*3/uL (4.8-10.8)
[2024-03-17 11:37] LABS: Estimated Average Glucose 232 mg/dL; Hemoglobin A1C 258.5586 umol/L; Hemoglobin A1c % 9.7 % (<6.0); Total Hemoglobin (HGBA1C) 3130.2532 umol/L
[2024-03-17 11:50] LABS: Creatinine Urine 32.69 mg/dL; Microalbum/Creatinine Ratio Ur 36.7 ug/mg cr (<30)
[2024-03-17 11:57] LABS: Syphilis Screen Nonreactive (Nonreactive)
[2024-03-17 11:58] LABS: Alanine Aminotransferase 22 U/L (0-31); Albumin Level 4.2 g/dL (3.5-5.0); Alkaline Phosphatase 138 U/L (39-117); Anion Gap 14 (12-20); Aspartate Amino Transferase 21 U/L (5-31); Bilirubin Total 0.2 mg/dL (0.0-1.0); Blood Urea Nitrogen 10 mg/dL (9-16); Calcium 9.3 mg/dL (8.4-10.2); Carbon Dioxide 28 mmol/L (22-29); Chloride 101 mmol/L (96-108); Cholesterol 180 mg/dL (<200); Estimated Glomerular Filt Rate > 60; Glucose Random 292 mg/dL (60-115); HDL Cholesterol 50 mg/dL (>40); Iron 45 mcg/dL (30-160); LDL Cholesterol Calculated 71 mg/dL (<100); Percent Iron Saturation 13 % (15-50); Potassium 4.3 mmol/L (3.3-5.1); Sodium 139 mmol/L (135-145); Total Iron Binding Capacity 345 mcg/dL (228-428); Total Protein 7.5 g/dL (6.5-8.0); Triglycerides 299 mg/dL (<150); Unsaturated Iron Binding 300 ug/dL
[2024-03-17 11:59] LABS: Ferritin 17 ng/mL (10-250); TSH reflex Free T4 0.42 uIU/mL (0.32-4.0)
[2024-03-17 12:00] LABS: HBS Num1 0.49 mIU/mL (0-7.99); HBc Num1 0.15 S/CO (0.00-0.79); HBsAGNum1 0.35 S/CO (0.00-0.99); HIV AB/AG Nonreactive (Nonreactive); HIV Num 1 0.05 S/CO (0.00-0.99); Hepatitis B Core Antibody Nonreactive (Nonreactive); Hepatitis B Surface Antigen Negative (Negative); ~HepC Num1 0.09 S/CO (0.00-0.79); ~Hepatitis B Surface Antibody NONREACTIVE (Nonreactive); ~Hepatitis C Antibody Nonreactive (Nonreactive)
[2024-03-17 12:24] LABS: Folate 14.9 ng/mL (> or = 4.0); Vitamin B12 442 pg/mL (200-900)
[2024-03-17 13:59] LABS: CT PCR NOT DETECTED (Not Detect.); NG PCR NOT DETECTED (Not Detect.)
== END 2024-03-17 09:30 | disposition home or self-care (01) ==
LOC: HO.HHCL 09:29
PROVIDERS: Visit Provider Student in an Organized Health Care Education/Training Program
DX: Z00.00 Encounter for general adult medical examination without abnormal findings (principal); R71.8 Other abnormality of red blood cells; Z13.1 Encounter for screening for diabetes mellitus
CPT/HCPCS: 36415; 80053; 80061; 82043; 82570; 82607; 82728; 82746; 83036; 83540; 84443; 85027; 86704; 86706; 86780; 86803; 87340; 87389; 87491; 87591

== ENCOUNTER 2024-05-03 11:17 | Outpatient (AMB) | payer OTHER, SELFPAY ==
--- NOTE | 2024-05-03 11:44 | A.OFFVIS_ITS ---
Vital Signs 05/03/24 11:45 Height 4 ft 11 in Weight 130 lb BMI 26.3 Intake Visit Reasons: OV: Left Shoulder pain Intake Note: Lottie is a 53 year old female who presents with complaints of left shoulder pain. She describes her pain as sharp in nature. She has had cortisone injections in the past which gave her fairly good relief. She has also tried Tylenol and anti-inflammatory medicines which gave her minimal relief. She has done physical therapy exercises which aggravated her pain. She wishes to hold off on surgery if at all possible. Train Control Electronic Technician Required: Yes Train Control Electronic Technician Language: Journeyman Painter Name: [id number] Allergies CITALOPRAM Allergy (Mild, Uncoded 05/03/24 11:46) rash HYDROBROMIDE Allergy (Unknown, Uncoded 05/03/24 11:46) unknown Medication List - Last Reconciled 05/03/24 by Kristopher Ross MD alcohol swabs (Alcohol Prep Pads) pad topical aspirin 81 mg PO DAILY atorvastatin 40 mg PO BEDTIME blood sugar diagnostic As directed blood-glucose meter (FreeStyle Lite Meter kit) As directed three times a day cholecalciferol (vitamin D3) 50 mcg PO QAM cyclobenzaprine 5 mg PO BEDTIME PRN empagliflozin (Jardiance) 25 mg PO QAM ergocalciferol (vitamin D2) 1,250 mcg PO QWEEK fenofibrate micronized 200 mg PO QAM ferrous gluconate 324 mg PO QAM flash glucose scanning reader (Sunnovationsyle Shanelle 2 [place]) As directed flash glucose sensor (FreeStyle Shanelle 2 Sensor kit) As directed every 2 weeks gabapentin 100 mg PO insulin degludec (Tresiba FlexTouch U-200 insulin) 20 units (0.1 mL) subcut BEDTIME lancets (TRUEplus Lancets) As directed lidocaine 5% 1 patch topically 1 patch daily q 12 hours; leave on most painful area for up to 12 hrs lisinopril 5 mg PO DAILY magnesium oxide 400 mg PO DAILY metformin 1,000 mg (2 x 500 mg) PO BID bjtducflqmgx-ovim-fpvin acid 18-400 mg-mcg 1 tab PO QAM naproxen 500 mg PO BID PRN omeprazole 20 mg PO QAM ondansetron HCl 8 mg PO Q8-12H PRN 4 days pen needle, diabetic (Pentips Pen Needle) As directed polyethylene glycol 3350 (Miralax) 238 grams PO ONCE PRN 1 day repaglinide 1 tab breakfast and dinner, 3 tabs lunch orally 3 times a day; 30 days riboflavin (vitamin B2) 400 mg PO DAILY [facility] History (Updated 02/03/24 @ 15:12 by GRISELDA Storey) Back pain Depression BRBPR (bright red blood per rectum) Hyperglycemia Grief Vaginal dryness Retinopathy Hypertriglyceridemia Type 2 diabetes mellitus with unspecified diabetic retinopathy without macular edema Dyslipidemia Surgical History Hx of mammogram Hx of section Family History Father CVD (cardiovascular disease) Mother Diabetes mellitus Sister Diabetes mellitus Social History Household Members: Spouse Alcohol intake: never Patient Tobacco Use Status: Never used Tobacco Physical Exam Vital Signs: BMI result Body Mass Index 26.3 Const Other: Well-nourished well-developed very friendly female awake alert and oriented x3 in no acute distress Extrem Other: Bilateral upper extremity examination shows good capillary refill, no skin lesions noted, normal sensation light touch Left shoulder examination shows slightly decreased range of motion when compared to her right shoulder, 4+ out of 5 strength with supraspinatus testing, positive impingement signs, tenderness over her acromioclavicular joint, no instability Office Procedures AMB Joint Injection/Aspiration Joint Injection/Aspiration Primary Site: left shoulder Prep: site was prepped using aseptic technique Injected: 40 mg of, DepoMedrol and 1% plain lidocaine Procedure: The patient tolerated the procedure well Coding 29911 - Large joint Procedure code (CPT) selection complete Assessment & Plan Assessment & Plan (1) Impingement syndrome of left shoulder: Code(s): M75.42 - Impingement syndrome of left shoulder Category: Medical Plan Ms. Sanchez presents with left shoulder pain due to impingement syndrome. I had a lengthy discussion with the patient regarding the treatment options. The risks and benefits of a left shoulder cortisone injection were discussed at length with the patient. The patient wished to proceed. She tolerated the injection well. She will continue with her home stretching program to prevent stiffness. She will contact me prior to her follow-up appointment in 3 months should any questions or concerns arise. Feel free to call me at any time should questions regarding her orthopedic management arise. I spent 22 minutes in reviewing the patient's records and imaging studies, will ansari the patient and documenting in the medical record. Orders: Orders AMB Joint Injection/Aspiration Today M75.42 - Impingement syndrome of left shoulder Coding Level of Care Code Est Pt Level 3 (35527) Complex EM visit Add On G2211 Diagnoses Impingement syndrome of left shoulder M75.42 CPT Codes Coding - 90283 Large joint: 73350 - Large joint ([id number])
[2024-05-03 11:45] VITALS: BMI 26.3
== END 2024-05-03 12:48 | disposition home or self-care (01) ==
PROVIDERS: PCP Student in an Organized Health Care Education/Training Program; Visit Provider Orthopaedic Surgery
DX: M75.42 Impingement syndrome of left shoulder (principal); Z04.2 Encounter for examination and observation following work accident
CPT/HCPCS: 20610; 99213

== ENCOUNTER → 2024-05-03 11:17 | Outpatient (BNVA) | payer OTHER, SELFPAY | PROVIDERS: PCP Student in an Organized Health Care Education/Training Program; Visit Provider Orthopaedic Surgery | DX: M75.42 Impingement syndrome of left shoulder (principal) | CPT/HCPCS: 20610; 99212; J1010; J2003 ==

== ENCOUNTER 2024-05-23 12:08 | Outpatient (REF) | payer OTHER, SELFPAY | END 2024-05-23 12:09 | disposition home or self-care (01) | LOC: HO.HHCLNP 12:08 | PROVIDERS: Visit Provider Emergency Medicine | DX: R10.13 Epigastric pain (principal) | CPT/HCPCS: 87338 ==

== ENCOUNTER 2024-06-06 11:22 | Outpatient (AMB) | payer OTHER, SELFPAY ==
[2024-06-06 11:29] VITALS: BMI 26.3
--- NOTE | 2024-06-06 11:29 | A.OFFVIS_ITS ---
Vital Signs 06/06/24 11:29 Height 4 ft 11 in Weight 130 lb BMI 26.3 Intake Visit Reasons: New prob- LT hip pain Intake Note: Lottie is a 53 year old female who presents with complaints of left hip pain after falling at work. The patient states that last month she fell while working. This is her 2nd fall at work this year. I saw her back in December for shoulder pain and neck pain after a different fall at work. The patient states that at times her left hip pain will radiate down her left leg. She does report intermittent low back pain as well. She has tried Tylenol and anti-inflammatory medicines which gave her minimal relief. Freelance Designer Required: Yes Freelance Designer Language: Clinic Nurse Name: SARAI Tello/WILSON Allergies CITALOPRAM Allergy (Mild, Uncoded 06/06/24 11:30) rash HYDROBROMIDE Allergy (Unknown, Uncoded 06/06/24 11:30) unknown Medication List - Last Reconciled 06/06/24 by Kristopher Ross MD alcohol swabs (Alcohol Prep Pads) pad topical aspirin 81 mg PO DAILY atorvastatin 40 mg PO BEDTIME blood sugar diagnostic As directed blood-glucose meter (FreeStyle Lite Meter kit) As directed three times a day cholecalciferol (vitamin D3) 50 mcg PO QAM cyclobenzaprine 5 mg PO BEDTIME PRN empagliflozin (Jardiance) 25 mg PO QAM ergocalciferol (vitamin D2) 1,250 mcg PO QWEEK fenofibrate micronized 200 mg PO QAM ferrous gluconate 324 mg PO QAM flash glucose scanning reader (FreeStyle Shanelle 2 [place]) As directed flash glucose sensor (FreeStyle Shanelle 2 Sensor kit) As directed every 2 weeks gabapentin 100 mg PO insulin degludec (Tresiba FlexTouch U-200 insulin) 20 units (0.1 mL) subcut BEDTIME lancets (TRUEplus Lancets) As directed lidocaine 5% 1 patch topically 1 patch daily q 12 hours; leave on most painful area for up to 12 hrs lisinopril 5 mg PO DAILY magnesium oxide 400 mg PO DAILY metformin 1,000 mg (2 x 500 mg) PO BID aolaqmxoickr-rmrf-brimw acid 18-400 mg-mcg 1 tab PO QAM naproxen 500 mg PO BID PRN omeprazole 20 mg PO QAM ondansetron HCl 8 mg PO Q8-12H PRN 4 days pen needle, diabetic (Pentips Pen Needle) As directed polyethylene glycol 3350 (Miralax) 238 grams PO ONCE PRN 1 day repaglinide 1 tab breakfast and dinner, 3 tabs lunch orally 3 times a day; 30 days riboflavin (vitamin B2) 400 mg PO DAILY venlafaxine ER 150 mg PO QAM [facility] Medical History (Updated 06/05/24 @ 07:23 by Kristopher Ross MD) Back pain Depression BRBPR (bright red blood per rectum) Hyperglycemia Grief Vaginal dryness Retinopathy Hypertriglyceridemia Type 2 diabetes mellitus with unspecified diabetic retinopathy without macular edema Dyslipidemia Surgical History Hx of mammogram Hx of section Family History Father CVD (cardiovascular disease) Mother Diabetes mellitus Sister Diabetes mellitus Social History Household Members: Spouse Alcohol intake: never Patient Tobacco Use Status: Never used Tobacco Physical Exam Vital Signs: BMI result Body Mass Index 26.3 Extrem Other: Left hip examination shows slightly decreased range of motion when compared to her right hip, no tenderness over her bursa, no palpable crepitus with range of motion Results Reviewed Results Reviewed: X-rays of the patient's left hip show mild joint space narrowing as well as a possible loose body, no acute bony abnormalities Assessment & Plan Assessment & Plan (1) Left hip pain: Code(s): M25.552 - Pain in left hip Category: Medical Plan Ms. Sanchez presents with left hip pain after a recent fall of unclear etiology. I will send her for an MRI of her left hip to further evaluate her for possible occult injury and for further evaluation of possible intra- articular loose body formation. I will see her back once the MRI is completed to discuss the findings and treatment options. Feel free to call me at any time should questions regarding her orthopedic management arise. I spent 21 minutes in reviewing the patient's records and imaging studies, seeing the patient and documenting in the medical record. Orders: Orders XR hip LT min 2V w/wo pel Today M25.552 - Pain in left hip MR hip LT wo con Today M25.552 - Pain in left hip Coding Level of Care Code Est Pt Level 3 (97602) Complex EM visit Add On G2211 Diagnoses Left hip pain M25.552
== END 2024-06-06 11:48 | disposition home or self-care (01) ==
PROVIDERS: PCP Student in an Organized Health Care Education/Training Program; Visit Provider Orthopaedic Surgery
DX: M25.552 Pain in left hip (principal)
CPT/HCPCS: 99213; G2211

== ENCOUNTER → 2024-06-06 11:25 | Outpatient (BNV) | payer OTHER, SELFPAY | PROVIDERS: Visit Provider Radiology Diagnostic Radiology | DX: M25.552 Pain in left hip (principal) | CPT/HCPCS: 73502 ==

== ENCOUNTER 2024-06-06 12:52 | Outpatient (REF) | payer OTHER, SELFPAY ==
--- NOTE | ~2024-06-06 | XR_ITS ---
EXAMINATION: XR hip LT min 2V w/wo pel HISTORY: M25.552 - Pain in left hip COMPARISON: There are no prior studies available for comparison. FINDINGS: A single AP view of the pelvis and an additional view of the left hip are submitted. Osseous mineralization is normal. There is no fracture or dislocation. There is mild joint space narrowing. A 1.4 cm calcification adjacent to the femoral neck may represent a loose body. XR/XR hip LT min 2V w/wo pel IMPRESSION: Mild joint space narrowing. Possible 1.4 cm loose body adjacent to the femoral neck. Electronically signed by: Farrukh Valadez MD 06/13/2024 03:53 PM [facility]
== END 2024-06-06 12:53 | disposition home or self-care (01) ==
LOC: HO.HOSX 12:52
PROVIDERS: Visit Provider Orthopaedic Surgery
DX: M25.552 Pain in left hip (principal)
CPT/HCPCS: 73502; 99212

== ENCOUNTER 2024-12-29 15:58 | Outpatient (REF) | payer MEDICAID, SELFPAY ==
--- OUTSIDE RECORDS SUMMARY | 2024-12-29 16:00 | XMS_ITS | Clinical Summary ---
Author Organization [facility] Address [address] [facility] [address] [place] [phone] Phone Care Team Providers Care Buffing Wheel Former Machine Name Role Phone Lottie Schuler MD Primary Care Provider + Allergies No known active allergies Medications metFORMIN (GLUCOPHAGE) 500 MG tablet Take 500 mg by mouth 2 (two) times a day with meals. Active pioglitazone (ACTOS) 15 MG tablet Take 15 mg by mouth daily. Active aspirin 81 MG EC tablet Take 81 mg by mouth daily. Active insulin aspart protamine-insuli n aspart (NOVOLOG MIX 70/30) 100 unit/mL (70-30) injection pen Inject under the skin 2 (two) times a day with meals. Active Active Problems Problem Noted Date Diagnosed Date Ischemic optic neuropathy of right eye 8 Family History Medical History Relation Comments Blindness Mother Diabetes Mother Glaucoma Neg Hx Relation Status Comments Mother Social History Tobacco Use Types Packs/Day Years Used Date Smoking Tobacco: Never Smokeless Tobacco: Never Education Answer Date Recorded Are you interested in more education? Not on sherman e 10/02/2022 Are you concerned about learning? Not on file 10/02/2022 No 10/02/2022 No 10/02/2022 Digital Access Answer Date Recorded No 10/31/2022 No 10/31/2022 No 10/31/2022 Reliable internet access at home? Not on file 10/31/2022 Device with a working camera? Not on file Comments Unknown Sex and Gender Information Value Date Recorded Sex Assigned at Not on file Legal Sex Female 3:04 PM EDT Gender Identity Not on file Sexual Orientation Not on file Plan of Treatment Health Maintenance Due Date Last Done Comments CREATININE LEVEL 1970 LIPID PANEL 1970 DEPRESSION SCREENING 1982 HEPATITIS C SCREENING 1988 HIV ONE-TIME SCREENING (18-6 5 YEARS) 1988 PAP SMEAR 08/25/1991 SMOKING STATUS SCREENING (On ce After 26 Yrs) 1996 MAMMOGRAM 2010 COLOGUARD 08/25/2015 COLONOSCOPY 08/25/2015 COLORECTAL CANCER SCREENING 08/25/2015 FIT TEST 08/25/2015 FOBT 08/25/2015 SIGMOIDOSCOPY 08/25/2015 VIRTUAL COLONOSCOPY 08/25/2015 PNEUMOCOCCAL VACCINES (50+ years) (2 of 2 - PCV) 2020 02/15/2003 COVID-19 VACCINE ( - 2023-2 5 season) 2024 04/01/2021, 09/22/2020, 09/01/2020 Adult Td,Tdap Booster 09/23/2028 09/23/2018 , 07/04/2012, 02/15/2003 ZOSTER VACCINES Completed 04/11/2021, 02/04/2021 HEPATITIS A VACCINES Aged Out No long er eligible based on patient's age to complete this topic HIB VACCINES Aged Out No longer eligi ble based on patient's age to complete this topic MENINGOCOCCAL VACCINES (ACWY) Aged Out No longer eligible based on patient's age to complete this topic MENINGOCOCCAL VACCINES (B) Aged Out N o longer eligible based on patient's age to complete this topic Medical Devices Not on file [place] [address] [address] [place] [address] NON NSPG PCP SILVER JOHAN CONNE[employer]CARE WELLSENSE NON NSPG PCP SILVER CLARITY CONNE[employer]CARE WELLSENSE NON NSPG PCP SILVER CLARITY CONNECTORCARE WELLSENSE NON NSPG PCP SILVER CLARITY CONNECTORCARE WELLSENSE NON NSPG PCP SILVER CLARITY CONNECTORCARE WELLSENSE NON NSPG PCP SILVER CLARITY CONNECTORCARE WELLSENSE NON NSPG PCP [facility] PCP SAVI PRADO CONNECTORCARE Care Teams Buffing Wheel Former Machine Relationship Specialty Start Date End Date Lottie Schuler MD [address] [place] [address] [address] [place] [address] PCP - General Internal Medicine 11/23/17 Additional Source Comments The information contained in this document represents components of the legal health record. It is not the complete legal health record.[facility]
--- OUTSIDE RECORDS SUMMARY | 2024-12-29 16:00 | XMS_ITS | Clinical Summary ---
Author Organization [address] [place] [address] Address [address] [place] [address] Phone Care Team Providers Care Radar Engineer Name Role Phone Lizbet Parks MD Primary Care Pro vider Allergies No known active allergies Medications aspirin 81 mg EC tablet Take 1 tablet (81 mg total) by mouth 1 (one) time each day. Active atorvastatin (LIPITOR) 40 mg tablet Take 1 tablet (40 mg total) by mouth at bedtime. Active cholecalciferol (VITAMIN D-3) 50 mcg (2,000 unit) tablet Take 1 tablet (2,000 Units total) by mouth 1 (one) time each day. Active empagliflozin (Jardiance) 25 mg tablet Take 1 tablet (25 mg total) by mouth 1 (one) time each day. Active ferrous gluconate (FERGON) 324 mg (38 mg iron) tablet Take 1 tablet (324 mg total) by mouth 1 (one) time each day. Active fluticasone propionate (FLOVENT DISKUS) 50 mcg/actuation diskus inhaler Inhale 1 puff by mouth 2 (two) times a day. Rinse mouth with water after use to reduce aftertaste and incidence of candidiasis. Do not swallow. Active gabapentin (NEURONTIN) 100 mg capsule Take 1 capsule (100 mg total) by mouth 3 (three) times a day. Active insulin degludec (TRESIBA FLEXTOUCH U-200 SUBQ) Inject 200 Units/min under the skin. Active metFORMIN (GLUCOPHAGE) 500 mg tablet Take 1 tablet (500 mg total) by mouth 2 (two) times a day with meals. Active omeprazole OTC (PriLOSEC OTC) 20 mg EC tablet Take 1 tablet (20 mg total) by mouth 1 (one) time each day. Do not crush, chew, or split. Active psyllium (METAMUCIL) powder Take 1 packet by mouth 3 (three) times a day. Active semaglutide (OZEMPIC) 1 mg/dose (2 mg/1.5 mL) injection pen Inject 1 mg under the skin every 7 (seven) days. Active venlafaxine XR (EFFEXOR-XR) 150 mg 24 hr capsule Take 1 capsule (150 mg total) by mouth 1 (one) time each day. Do not crush or chew. Active Active Problems Problem Noted Date Diagnosed Date T2DM (type 2 diabetes mellitus) ([facility] V24, CM S/[facility] V28) 04/14/2024 Vaginal dryness, menopausal 04/14/2024 Hypertriglyceridemia 04/14/2024 Mild major depression ([facility] V24) 04/14/2024 Brain concussion 04/14/2024 Sleep disturbance 04/14/2024 SUSAN (generalized anxiety disorder) 04/14/2024 Prolonged grief disorder 04/14/2024 Chest discomfort 04/14/2024 Immunizations Name Administration Dates Next Due Moderna SARS-CoV-2 COVID-19, mRNA, LNP-S, preservative free 01/13/2023 Social History Tobacco Use Types Packs/Day Years Used Date Smoking Tobacco: Never Assessed Comments Unknown Sex and Gender Information Value Date Recorded Sex Assigned at Not on file Legal Sex Female 7:32 PM EST Gender Identity Not on file Sexual Orientation Not on file Last Filed Vital Signs Vital Sign Reading Time Taken Comments Blood Pressure - - Pulse - - Temperature - - Respiratory Rate - - Oxygen Saturation - - Inhaled Oxygen Concentration - - Weight 62.1 kg (137 lb) 04/19/2024 1:46 PM EST Height 152.4 cm (5') 04/19/2024 1:46 PM EST Body Mass Index 26.76 04/19/2024 1:46 PM EST Plan of Treatment Health Maintenance Due Date Last Done Comments Breast Cancer Screening 1970 Diabetes: Annual Foot Exam 1980 Diabetes: Annual Retina Eye Exam 1980 Cervical Cancer Screening: Pap Smear 08/25/1991 Hepatitis B Vaccines (2 of 3 - 19+ 3-dose series) 12/11/2021 11/13/2021 COVID-19 Vaccine ( season) 2024 08/06/2023, 01/13/2023, 04/01/2021, Additional history exists Colorectal Cancer Screening: Colonoscopy 03/10/2024 Social Influencers of Health Screening 03/10/2024 Diabetes: Annual Urine Albumin-Creatinine Ratio (uACR) 04/14/2024 Depression Screening 06/07/2024 Diabetes: Blood Sugar Control Test (HGBA1C) 09/15/2024 03/17/2024 Influenza Vaccine (#1) 2025 , 05/18/2019, 04/28/2017, Additional history exists Diabetes: Annual GFR (Glomerular Filtration Rate) 03/17/2025 03/17/2024 DTaP,Tdap,and Td Vaccines (4 - Td or Tdap) 09/23/2028 09/23/2018, 07/04/2012, 02/15/2003 Cholesterol Screening (Lipid Panel) 03/17/2029 03/17/2024 Zoster Vaccines Completed 04/11/2021, 02/04/2021 Pneumococcal Vaccine: 50+ Years Completed 01/13/2023, 02/15/2003 HIV Screening Completed 03/17/2024 Hepatitis C Screening Completed 03/17/2024 HIB Vaccines Aged Out No longer eligi ble based on patient's age to complete this topic HPV Vaccines Aged Out No longer eligi ble based on patient's age to complete this topic Hepatitis A Vaccines Aged Out No long er eligible based on patient's age to complete this topic IPV Vaccines Aged Out No longer eligi ble based on patient's age to complete this topic MMR Vaccines Aged Out No longer eligi ble based on patient's age to complete this topic Meningococcal ACWY Vaccine Aged Out N o longer eligible based on patient's age to complete this topic Meningococcal B Vaccine Aged Out No l onger eligible based on patient's age to complete this topic RSV Immunization Patients Under 20 months Aged Out No longer eligible based on patient's age to complete this topic Varicella Vaccines Aged Out No longer eligible based on patient's age to complete this topic Insurance [facility] Care Teams Radar Engineer Relationship Specialty Start Date End Date Lizbet Parks MD [address] [facility] [address] [place] [address] PCP - General 01/20/24
--- OUTSIDE RECORDS SUMMARY | 2024-12-29 16:00 | XMS_ITS | Encounter Summary ---
Author Organization [facility] [employer] Address [address] [place] [address] [address] [place] [address] Care Team Providers Care Capacity Planning Manager Name Role Phone Lizbet Parks MD Primary Care Pro vider Sonia Hartman PharmD Unavailable [phone] Reason for Referral * Consultation (Routine) - Pending Review Specialty Diagnoses / Procedures Referred By Darci t Referred To Contact Ophthalmology Diagnoses Type 2 diabetes mellitus with other specified complication, with long-term current use of insulin (CMS/HCC) Lizbet Parks MD [address] [place] [address] Phone: tel: fax: Referral ID Status Reason Start Date Expiration Date Visits Requested Visits Authorized [id number] Pending Review Specialty Services Required 12/29/2024 12/29/2025 1 1 Encounter Details Date Type Department Care Team (Late st Contact Info) Description 12/29/2024 Orders Only [facility] [address] [place] [address] [phone] Lizbet Parks MD [address] [place], [place] [phone] Type 2 diabetes mellitus with other specified complication, with long-term current use of insulin (CMS/HCC) (Primary Dx) Social History Tobacco Use Types Packs/Day Years Used Date Smoking Tobacco: Never Passive Smoke Exposure: Never Smokeless Tobacco: Never Alcohol Use Standard Drinks/Week Comments Never 0 (1 standard drink = 0.6 oz pur e alcohol) Depression Answer Date Recorded Patient Health Questionnaire-9 Score 8 11/07/2024 Patient Health Questionnaire-9 Score 8 11/07/2024 Last PHQ-9: Questionnaire Data Not on file 0 11/07/2024 Housing Stability Answer Date Recorded What is your housing situation today? I have esmer rand 03/25/[address] you li ve. Do you have problems with any of the following? None of the above 03/25/2023 Food Insecurity Answer Date Recorded Within the past 12 months, y ou worried that your food would run out before you got money to buy more: Never True 03/25/2023 Within the past 12 months,th e food you bought just didn't last and you didn't have enough money to get more: Never True Transportation Answer Date Recorded In the past 12 months, has l ack of transportation kept you from medical appts, meetings, work or from getting things needed for daily living? No 10/26/2024 Utilities Answer Date Recorded In the past 12 months, has t he electric, gas, oil or water company threatened to shut off services in your home? No 03/25/2023 Depression Answer Date Recorded Patient Health Questionnaire-2 Score 3 11/07/2024 Internet Access Answer Date Recorded Internet Access Q1 Yes 02/04/2024 Internet Access Q2 Not on file 02/04/2024 Comments Unknown Sex and Gender Information Value Date Recorded Sex Assigned at Female 04/06/2022 10:16 AM EDT Legal Sex Female 10:16 AM EDT Gender Identity Female 04/06/2022 10:16 AM EDT Sexual Orientation Straight 04/06/2022 10 :16 AM EDT documented as of this encounter Plan of Treatment Upcoming Encounters Date Type Department Care Team ([facility] st Contact Info) Description 01/12/2025 10:00 AM EDT Office Visit [facility] [address] [place] [address] Lizbet Parks MD [address] [place] [address] 01/29/2025 10:30 AM EDT Medication Management [facility] [address] [place] [address] Sonia Hartman PharmD [address] [place] [address] Scheduled Referrals Name Type Priority Associated Diagnoses Order Schedule Referral to Ophthalmology Outpatient Referral Routine Type 2 diabetes mellitus with other specified complication, with long-term current use of insulin (CMS/HCC) Expected: 12/29/2024 (Approximate), Expires: 12/29/2025 documented as of this encounter Visit Diagnoses Diagnosis Type 2 diabetes mellitus with other specified complication, with long-term current use of insulin (CMS/HCC)- Primary documented in this encounter Additional Health Concerns Assessment Noted Time PHQ-9 Depression Total Score: 8 11/08/19 25 10:40 AM EDT documented as of this encounter Care Teams Capacity Planning Manager Relationship Specialty Start Date End Date Lizbet Parks MD [address] [place] [phone] PCP - General Internal Medicine 11/06/22 Sonia Hartman PharmD [address] [place] [phone] Pharmacist Internal Medicine 07/31/24 Emilie Zamora [id number] [id number] Armor CrewmanGas Appliance Servicer Helper 08/18/24 documented as of this encounter
== END 2024-12-29 15:59 | disposition home or self-care (01) ==
LOC: HO.MAMMO 15:58
PROVIDERS: PCP Student in an Organized Health Care Education/Training Program; Visit Provider Student in an Organized Health Care Education/Training Program
DX: Z12.31 Encounter for screening mammogram for malignant neoplasm of breast (principal)
CPT/HCPCS: 77063; 77067

== ENCOUNTER → 2024-12-29 16:15 | Outpatient (BNV) | payer MEDICAID, SELFPAY | PROVIDERS: PCP Student in an Organized Health Care Education/Training Program; Visit Provider Internal Medicine | DX: Z12.31 Encounter for screening mammogram for malignant neoplasm of breast (principal) | CPT/HCPCS: 77063; 77067 ==

== ENCOUNTER 2025-01-30 11:30 | Outpatient (REF) | payer MEDICAID, SELFPAY ==
--- OUTSIDE RECORDS SUMMARY | 2025-01-30 10:40 | XMS_ITS | Encounter Summary ---
Author Organization [facility] Address [address] [facility] [address] [place] [address] Care Team Providers Care Lieutenant Fire Fighter Name Role Phone Lizbet Parks MD Primary Care Pro vider Sonia Hartman PharmD Unavailable [phone] Reason for Visit * Reason Comments low bp Encounter Details Date Type Department Care Team (Late st Contact Info) Description 01/30/2025 10:40 AM EDT Office Visit [facility] [address] [place] [address] [phone] Zhane Dowell MD [address] [place] [address] Other fatigue (Primary Dx) Social History Tobacco Use Types Packs/Day Years Used Date Smoking Tobacco: Never Passive Smoke Exposure: Never Smokeless Tobacco: Never Alcohol Use Standard Drinks/Week Comments Never 0 (1 standard drink = 0.6 oz pur e alcohol) Depression Answer Date Recorded Patient Health Questionnaire-9 Score 14 01/19/2025 Patient Health Questionnaire-9 Score 14 01/19/2025 Last PHQ-9: Questionnaire Data Not on file 0 01/19/2025 Housing Stability Answer Date Recorded What is [...] the past 12 months, has t he [employer], gas, oil or water company threatened to shut off services in your home? No 03/25/2023 Depression Answer Date Recorded Patient Health Questionnaire-2 Score 6 01/19/2025 Internet Access Answer Date Recorded Internet Access Q1 Yes 02/04/2024 Internet Access Q2 Not on file 02/04/2024 Comments Unknown Sex and Gender Information Value Date Recorded Sex Assigned at Female 04/06/2022 10:16 AM EDT Legal Sex Female 10:16 AM EDT Gender Identity Female 04/06/2022 10:16 AM EDT Sexual Orientation Straight 04/06/2022 10 :16 AM EDT documented as of this encounter Last Filed Vital Signs Vital Sign Reading Time Taken Comments Blood Pressure 109/72 01/30/2025 10:52 AM EDT Pulse 105 01/30/2025 10:52 AM EDT Temperature 37.2 C (98.9 F) 01/30/2025 10:52 AM EDT Respiratory Rate 20 01/30/2025 10:5 2 AM EDT Oxygen Saturation 98% 01/30/2025 10: 52 AM EDT Inhaled Oxygen Concentration - - Weight 65.2 kg (143 lb 12.8 oz) 025 10:52 AM EDT Height - - Body Mass Index 27.17 01/16/2025 2:05 PM EDT documented in this encounter Progress Notes * Zhane Dowell MD - 01/30/2025 10:40 AM EDT Subjective Patient ID: Lottie Sanchez is a 54 y.o. female with past medical history type 2 diabetes who presents to walk in clinic for feeling tired . Pt reports for 1 week she has been sleeping more than normal, feeling tired with low energy. She has had mild uri with runny nose and congetsion. BPs usually 100/80s. Denies chest pain, fevers, SOB, BRBPR or vaginal bleeding. Review of Systems Constitutional: Negative for chills, diaphoresis, fatigue, fever and unexpected weight change. Respiratory: Negative for cough. Cardiovascular: Negative for palpitations. Gastrointestinal: Negative for diarrhea. Musculoskeletal: Negative for joint swelling. Objective Visit Vitals BP 109/72 (BP Location: Left arm, Patient Position: Sitting, BP Cuff Size: Adult) Pulse 105 Temp 98.9 ??F (37.2 ??C) (Oral) Resp 20 Body mass index is 27.17 kg/m??. Physical Exam Constitutional: Appearance: Normal appearance. Cardiovascular: Rate and Rhythm: Normal rate and regular rhythm. Heart sounds: Normal heart sounds. Pulmonary: Effort: Pulmonary effort is normal. Breath sounds: Normal breath sounds. Abdominal: Tenderness: There is no abdominal tenderness. Musculoskeletal: Cervical back: Normal range of motion and neck supple. Neurological: General: No focal deficit present. Mental Status: She is alert. Psychiatric: Behavior: Behavior normal. Assessment & Plan Other fatigue From physical exam normal complete exam but pt seems tired but no objective abnormal findings that can explain symptoms. Covid negative, Will check labs. Orders: POCT Rapid COVID Ag CBC; Future Basic Metabolic Panel; Future TSH W/Reflex to FT4; Future Vitamin D, 25-Hydroxy, Total, Immunoassay; Future Future Appointments Date Time Provider Department Center 02/02/2025 2:30 PM Sulma Espinoza [facility] 03/22/2025 10:30 AM Lizbet Davalos MD MEDICINE [facility] documented in this encounter Plan of Treatment Upcoming Encounters Date Type Department Care Team (Late st Contact Info) Description 03/22/2025 10:30 AM EDT Office Visit [facility] [address] [place] [address] Lizbet Parks MD [address] [place] [address] Scheduled Orders Name Type Priority Associated Diagnoses Orde r Schedule CBC Lab Routine Other fatigue Expected: 01/30/2025, Expires: 01/30/2026 Basic Metabolic Panel Lab Routine Other fatigue Expected: 01/30/2025 (Approximate), Expires: 01/30/2026 TSH W/Reflex to FT4 Lab Routine Other fatigue Expected: 01/30/2025 (Approximate), Expires: 01/30/2026 Vitamin D, 25-Hydroxy, Total, Immunoassay Lab Routine Other fatigue Expected: 01/30/2025 (Approximate), Expires: 01/30/2026 documented as of this encounter Procedures Procedure Name Priority Date/Time Associated Diagnosis Comments POCT RAPID COVID ANTIGEN Routine 01/30/2025 11:28 AM EDT Other fatigue documented in this encounter Results * POCT Rapid COVID Ag (01/30/2025 11:28 AM EDT) [facility] Rapid COVID Ag Negative QC Media Lot # [id number] Lot# Expiration Date [id number] Swab 01/30/2025 11:2 8 AM EDT Zhane Dowell MD POINT OF CARE TEST ENTER/E DIT ORDERABLES Final Result documented in this encounter Visit Diagnoses Diagnosis Other fatigue- Primary documented in this encounter Additional Health Concerns Assessment Noted Time PHQ-9 Depression Total Score: 14 025 4:01 PM EDT documented as of this encounter Care Teams Lieutenant Fire Fighter Relationship Specialty Start Date End Date Lizbet Parks MD [address] [place] [phone] PCP - General Internal Medicine 11/06/22 Sonia Hartman PharmD [address] [place] [address] [phone] Pharmacist Internal Medicine 07/31/24 Emilie Zamora Bindery Cutter OperatorCarpenter Packing 08/18/24 documented as of this encounter
--- OUTSIDE RECORDS SUMMARY | 2025-01-30 12:29 | XMS_ITS | Encounter Summary ---
Author Organization [employer] Address 75 [facility] 7 [place] [address] Care Team Providers Care Rotary Cutter Feeder Name Role Phone Lizbet Parks MD Primary Care Pro vider Sonia Hartman PharmD Unavailable [phone] Reason for Visit * Reason Onset Date Comments Referral 12/29/2024 Encounter Details Date Type Department Care Team ([facility] st Contact Info) Description 12/29/2024 Telephone [facility] [address] [place], [place] [phone] Lizbet Parks MD [address] [place] [address] Referral Social History Tobacco Use Types Packs/Day Years [...] AM EDT documented as of this encounter Miscellaneous Notes * Telephone Encounter - Claudia Moran - 12/29/2024 11:17 AM EDT Tc from From [facility] requesting an referral for Ophthalmology Appt for measures is in 01/05/25 To be send to [facility] #[phone] Please contact [facility] to clarify if referral can be send before 01/05 at [phone] Ext 349 documented in this encounter Plan of Treatment Upcoming Encounters Date Type Department Care Team (Late st Contact Info) Description 03/22/2025 10:30 AM EDT Office Visit [facility] [address] [place] [address] [phone] Lizbet Parks MD [address] [place], [place] [phone] documented as of this encounter Visit Diagnoses Not on filedocumented in this encounter Additional Health Concerns Assessment Noted Time PHQ-9 Depression Total Score: 8 11/08/19 10:40 AM EDT documented as of this encounter Care Teams Rotary Cutter Feeder Relationship Specialty Start Date End Date Lizbet Parks MD [address] [place] [address] [phone] PCP - General Internal Medicine 11/06/22 Sonia Hartman PharmD [address] [place] [phone] Pharmacist Internal Medicine 07/31/24 Emilie Zamora Certified MorticianCareer Agent 08/18/24 documented as of this encounter
--- OUTSIDE RECORDS SUMMARY | 2025-01-30 12:29 | XMS_ITS | Encounter Summary ---
Author Organization [employer] Address [address] [facility] 7t [place] [address] Care Team Providers Care Radiology Receptionist Name Role Phone NuryWanda galeas GRISELDA Primary Care Provider [phone] Lizbet Parks MD Primary Care Pro vider Mg Hanna Unavailable Sonia Hartman PharmD Unavailable [phone] Encounter Details Date Type Department Care Team ([facility] Contact Info) Description 07/13/2022 Orders Only [facility] [address] [place] [address] Jodie Camarillo LPN Social History Tobacco Use Types Packs/Day Years Used Date Smoking Tobacco: Never Passive Smoke Exposure: Never Smokeless Tobacco: Never Alcohol Use Standard Drinks/Week Comments Never 0 (1 standard drink = 0.6 oz pur e alcohol) Comments Unknown Sex and Gender Information Value Date Recorded Sex Assigned at Female 04/06/2022 10:16 AM EDT Legal Sex Female 10:16 AM EDT Gender Identity Female 04/06/2022 10:16 AM EDT Sexual Orientation Straight 04/06/2022 10 :16 AM EDT COVID-19 Exposure Response Date Recorded In the last 10 days, have yo u been in contact with someone who was confirmed or suspected to have Coronavirus/COVID-19? No / Unsure 07/01/2022 1:55 PM EST documented as of this encounter Plan of Treatment Upcoming Encounters Date Type Department Care Team (Late st Contact Info) Description 03/22/2025 10:30 AM EDT Office Visit [facility] [address] [place], [place] [phone] Lizbet Parks MD [address] [place], [place] [phone] documented as of this encounter Visit Diagnoses Not on filedocumented in this encounter Care Teams Radiology Receptionist Relationship Specialty Start Date End Date Wanda Polanco FNP [address] [place] [address] [phone] PCP - General Family Medicine 01/29/22 11/05/22 Lizbet Parks MD [address] [place], [place] [phone] PCP - General Internal Medicine 11/06/22 Mg Hanna Community Health Worker 09/27/2301/03 Sonia Hartman, Camila [address] [place] [address] [phone] Pharmacist Internal Medicine 07/31/24 Emilie Zamora Wholesale BuyerTucking Machine Operator 08/18/24 documented as of this encounter
--- OUTSIDE RECORDS SUMMARY | 2025-01-30 12:29 | XMS_ITS | Encounter Summary ---
Author Organization [employer] Address [address] [place] [address] 7 [place] [address] Care Team Providers Care Cafeteria Aide Name Role Phone Lizbet Parks MD Primary Care Pro vider Sonia Hartman PharmD Unavailable [phone] Reason for Visit * Reason Onset Date Comments Nurse Triage 04/03/2024 Encounter Details Date Type Department Care Team (Late st Contact Info) Description 04/03/[address] [facility] [address] [place], [place] [phone] Lizbet Parks MD [address] [place] [address] Nurse Triage Social History Tobacco Use Types Packs/Day Years Used Date Smoking Tobacco: Never Passive Smoke Exposure: Never Smokeless Tobacco: Never Alcohol Use Standard Drinks/Week Comments Never 0 (1 standard drink = 0.6 oz pur e alcohol) Depression Answer Date Recorded Patient Health Questionnaire-9 Score 9 01/18/2024 Patient Health Questionnaire-9 Score 9 01/18/2024 Last PHQ-9: Questionnaire Data Not on file 0 01/18/2024 Housing Stability Answer Date Recorded What is [...] from getting things needed for daily living? Yes, it has kept me from medical appointments or getting medications. 10/29/2023 Utilities Answer Date Recorded In the past 12 months, has t he [employer], gas, oil or water [employer] threatened to shut off services in your home? No 03/25/2023 Depression Answer Date Recorded Patient Health Questionnaire-2 Score 2 01/18/2024 Internet Access Answer Date Recorded Internet Access [...] encounter Miscellaneous Notes * Telephone Encounter - Saida Corona RN - 04/03/2024 10:48 AM EDT Triage call with [facility] [place] [id number], Kassandra.. Pt reports left leg/arm pain and numbness since 03/31/24. Pt has had a previous accident at work which occurred in September. Pt had a fall and has been going to PT until last Wednesday03/29/24. Pt reports there is a lack of strength in the left arm. When sitting Pt reports difficulty getting up due to left leg weakness. Pt is having some difficulty walking also. Pt is advised to come to [facility] today to be seen by provider. Pt agrees with disposition. Pt insurance is health [employer], paper work has been filled out with [facility] assist and awaiting card at this time. Multiple (2) protocols were used on this call. Disposition for Call: See in Office or Video Visit Today Protocol Used: Arm Pain (Adult) Protocol-Based Disposition: See in Office or Video Visit Today Positive Triage Question: * Numbness (i.e., loss of sensation) in hand or fingers (Exceptions: Just tingling; numbness present > 2 weeks.) * All higher-acuity triage questions were negative Care Advice Discussed: * Pain Medicines * Pain Medicines - Extra Notes and Warnings * Reasons To Call Back - Moderate pain (such as interferes with normal activities) lasts more than 3 days - Mild pain lasts more than 7 days - Arm swelling occurs - Signs of infection occur (such as spreading redness, warmth, fever) - You become worse Protocol Used: Leg Pain (Adult) Protocol-Based Disposition: See in Office or Video Visit Today or Tomorrow Video visit not offered Positive Triage Questions: * Numbness in a leg or foot (i.e., loss of sensation) * Patient wants to be seen * All higher-acuity triage questions were negative Care Advice Discussed: * Reassurance and Education - Leg Pain * Pain Medicines * Pain Medicines - Extra Notes and Warnings * Reasons To Call Back - Moderate pain (such as limping) lasts more than 3 days - Mild pain lasts more than 7 days - Signs of infection occur (such as spreading redness, warmth, fever) - You become worse * Telephone Encounter - Johnnie Downs - 04/03/2024 10:02 AM EDT Symptoms: Dizziness, Leg Pain - Not From Injury, Hip Pain - Not From Injury Outcome: Talk to a nurse or provider within 15 minutes Reason: Trouble walking Bulgarian Speaker (Accepted Winder Contort Operator) documented in this encounter Plan of Treatment Upcoming Encounters Date Type Department Care Team (Late st Contact Info) Description 03/22/2025 10:30 AM EDT Office Visit [facility] [address] [place] [phone] Lizbet Parks MD [address] [place], [place] [phone] documented as of this encounter Visit Diagnoses Not on filedocumented in this encounter Additional Health Concerns Assessment Noted Time PHQ-9 Depression Total Score: 9 01/18/20 24 2:37 PM EDT documented as of this encounter Care Teams Cafeteria Aide Relationship Specialty Start Date End Date Lizbet Parks MD [address] [place] [address] PCP - General Internal Medicine 11/06/22 Sonia Hartman, NehemiasD [address] [place] [address] Pharmacist Internal Medicine 07/31/24 Emilie Zamora Director Of ServicesFoot Roentgenologist 08/18/24 documented as of this encounter
--- OUTSIDE RECORDS SUMMARY | 2025-01-30 12:29 | XMS_ITS | Encounter Summary ---
Author Organization [employer] Address [address] [place] [address] 7 [place] [address] Care Team Providers Care Security Operations Manager Name Role Phone Wanda Polanco Primary Care Provider [phone] Lizbet Parks MD Primary Care Pro vider Mg Hanna Unavailable Sonia Hartman PharmD Unavailable Encounter Details Date Type Department Care Team (Latest Contact Info) Description 01/30/2019 Abstract [facility] CONVERSIONS Dental, Provider, DDS Social History Tobacco Use Types Packs/Day Years [...] Description 03/22/2025 10:30 AM EDT Office Visit [facility] [address] [place] [address] Lizbet Parks MD [address] [place] [address] documented as of this encounter Visit Diagnoses Not on filedocumented in this encounter Care Teams Security Operations Manager Relationship Specialty Start Date End Date Wanda Polanco FNP [address] [place] [address] PCP - General Family Medicine 01/29/22 11/05/22 Lizbet Parks MD [address] [place], [place] [phone] PCP - General Internal Medicine 11/06/22 Mg Hanna Community Health Worker 09/27/2301/03 Sonia Hartman, NehemiasD [address] [place], [place] [phone] Pharmacist Internal Medicine 07/31/24 Emilie Zamora Comparative Sociology ProfessorPharmacy Resource Tech 08/18/24 documented as of this encounter
--- OUTSIDE RECORDS SUMMARY | 2025-01-30 12:29 | XMS_ITS | Encounter Summary ---
Author Organization [employer] Address 75 [facility] 7 [place] [address] Care Team Providers Care Religious Studies Professor Name Role Phone Lizbet Parks MD Primary Care Pro vider Sonia Hartman PharmD Unavailable [phone] Reason for Visit * Reason Comments Med Refill Encounter Details Date Type Department Care Team (Late st Contact Info) Description 01/25/[address] [facility] [address] [place], [place] [phone] Lizbet Parks MD 230 [place] [address] Social History Tobacco Use Types Packs/Day Years [...] the past 12 months, has t he [employer], gas, oil or water company threatened to shut off services in your home? No 03/25/2023 Depression Answer Date Recorded Patient Health Questionnaire-2 Score 2 01/18/2024 Comments Unknown Sex and Gender Information Value [...] 03/22/2025 10:30 AM EDT Office Visit [facility] [address] [place] [address] Lizbet Parks MD [address] [place] [phone] documented as of this encounter Visit Diagnoses Not on filedocumented in this encounter Additional Health Concerns Assessment Noted Time PHQ-9 Depression Total Score: 9 01/18/20 24 2:37 PM EDT documented as of this encounter Care Teams Religious Studies Professor Relationship Specialty Start Date End Date Lizbet Parks MD [address] [place] [address] [phone] PCP - General Internal Medicine 11/06/22 Sonia Hartman, Camila [address] [place] [phone] Pharmacist Internal Medicine 07/31/24 Emilie Zamora Radio HostRiding Coach 08/18/24 documented as of this encounter
--- OUTSIDE RECORDS SUMMARY | 2025-01-30 12:29 | XMS_ITS | Encounter Summary ---
Author Organization [employer] Address [address] [place] [address] 7 [place] [address] Care Team Providers Care News Editor Name Role Phone Wanda Polanco Primary Care Provider [phone] Lizbet Parks MD Primary Care Pro vider Mg Hanna Unavailable Sonia Hartman PharmD Unavailable Encounter Details Date Type Department Care Team (Latest Contact Info) Description 08/30/2020 Abstract [facility] CONVERSIONS Dental, Provider, DDS Social History Tobacco [...] Description 03/22/2025 10:30 AM EDT Office Visit [facility] [address] [place], [place] [phone] Lizbet Parks MD [address] [place], [place] [phone] documented as of this encounter Visit Diagnoses Not on filedocumented in this encounter Care Teams News Editor Relationship Specialty Start Date End Date Wanda Polanco FNP [address] [place] [address] PCP - General Family Medicine 01/29/22 11/05/22 Lizbet Parks MD [address] [place], [place] [phone] PCP - General Internal Medicine 11/06/22 Mg Hanna Community Health Worker 09/27/2301/03 Sonia Hartman, NehemiasD [address] [place], [place] [phone] Pharmacist Internal Medicine 07/31/24 Emilie Zamora Bar HostAssembler And Tester Electronics 08/18/24 documented as of this encounter
--- OUTSIDE RECORDS SUMMARY | 2025-01-30 12:29 | XMS_ITS | Encounter Summary ---
Author Organization [employer] Address [address] [place] [address] 7 [place] [address] Care Team Providers Care Health Services Manager Name Role Phone Lizbet Parks MD Primary Care Pro vider Sonia Hartman PharmD Unavailable [phone] Reason for Visit * Reason Onset Date Comments Med Refill 11/14/2024 Encounter Details Date Type Department Care Team (Late st Contact Info) Description 11/14/2024 Telephone [facility] [address] [place], [place] [phone] Lizbet Parks MD [address] [place] [address] Med Refill Social History Tobacco Use Types Packs/Day Years [...] encounter Miscellaneous Notes * Telephone Encounter - Jodie Camarillo LPN - 11/14/2024 10:14 AM EDT Please review is PCP prescribing? * Telephone Encounter - Claudia Moran - 11/14/2024 10:07 AM EDT TC from pt requesting medication refill. Medications needing refill : - Ozempic, 0.25 or 0.5 MG/DOSE, 2 MG/3ML solution pen-injector To be sent to: - [facility] - [place], [place] - [address] [facility] documented in this encounter Plan of Treatment Upcoming Encounters Date Type Department Care Team (Late st Contact Info) Description 03/22/2025 10:30 AM EDT Office Visit [facility] [address] [place] [address] Lizbet Parks MD [address] [place] [address] documented as of this encounter Visit Diagnoses Not on filedocumented in this encounter Additional Health Concerns Assessment Noted Time PHQ-9 Depression Total Score: 8 11/08/19 25 10:40 AM EDT documented as of this encounter Care Teams Health Services Manager Relationship Specialty Start Date End Date Lizbet Parks MD [address] [place] [address] PCP - General Internal Medicine 11/06/22 Sonia Hartman, NehemiasD [address] [place] [phone] Pharmacist Internal Medicine 07/31/24 Emilie Zamora Double End Tenoner OperatorForestry Aid 08/18/24 documented as of this encounter
--- OUTSIDE RECORDS SUMMARY | 2025-01-30 12:30 | XMS_ITS | Encounter Summary ---
Author Organization [employer] Address [address] [place] [address] 7 [place] [address] Care Team Providers Care Attendant Child Activity Name Role Phone Lizbet Parks MD Primary Care Pro vider Mg Hanna Unavailable Sonia Hartman PharmD Unavailable Encounter Details Date Type Department Care Team (Late Contact Info) Description 11/09/2022 Orders Only [facility] [address] [place], [place] [phone] Jodie Camarillo LPN Social History Tobacco Use [...] Upcoming Encounters Date Type Department Care Team ([facility] Contact Info) Description 03/22/2025 10:30 AM EDT Office Visit [facility] [address] [place], [place] [phone] Lizbet Parks MD [address] [place], [place] [phone] documented as of this encounter Visit Diagnoses Not on filedocumented in this encounter Care Teams Attendant Child Activity Relationship Specialty Start Date End Date Lizbet Parks MD [address] [place], [place] [phone] PCP - General Internal Medicine 11/06/22 Mg Hanna Community Health Worker 09/27/2301/03 Sonia Hartman, NehemiasD [address] [place], [place] [phone] Pharmacist Internal Medicine 07/31/24 Emilie Zamora Contract ModelerAuto Parts Salesperson 08/18/24 documented as of this encounter
--- OUTSIDE RECORDS SUMMARY | 2025-01-30 12:30 | XMS_ITS | Encounter Summary ---
Author Organization [employer] Address [address] [place] [address] Care Team Providers Care Manager Merchandise Name Role Phone Lizbet Parks MD Primary Care Pro vider Sonia Hartman PharmD Unavailable [phone] Reason for Visit * Reason Comments Med Refill Encounter Details Date Type Department Care Team (Late st Contact Info) Description 10/26/2024 Refill [facility] [address], [place] [phone] Lizbet Parks MD [address] [place], [place] [phone] Type 2 diabetes mellitus with hyperglycemia, without long-term current use of insulin ([facility]) Social History Tobacco Use Types Packs/Day Years [...] the past 12 months, has t he [employer] gas, oil or water company threatened to [...] Description 03/22/2025 10:30 AM EDT Office Visit [facility] [address] [place] [phone] Lizbet Parks MD [address] [place] [phone] documented as of this encounter Visit Diagnoses Diagnosis Type 2 diabetes mellitus with hyperglycemia, without long-term current use of insulin ([facility]) documented in this encounter Additional Health Concerns Assessment Noted Time PHQ-9 Depression Total Score: 9 01/18/20 24 2:37 PM EDT documented as of this encounter Care Teams Manager Merchandise Relationship Specialty Start Date End Date Lizbet Parks MD [address] [place] [phone] PCP - General Internal Medicine 11/06/22 Sonia Hartman, NehemiasD [address] [place] [phone] Pharmacist Internal Medicine 07/31/24 Emilie Zamora Associate Professor Of LiteracyComputer Forensics Investigator 08/18/24 documented as of this encounter
--- OUTSIDE RECORDS SUMMARY | 2025-01-30 12:30 | XMS_ITS | Clinical Summary ---
Author Organization [email or web address] Address [address] [facility] [address] [place] [address] Care Team Providers Care Cath Lab Radiological Technologist Name Role Phone Lizbet Parks MD Primary Care Pro vider Sonia Hartman PharmD Unavailable [phone] Allergies No known active allergies Medications * This document contains information received from the source organization and may not represent a complete record from that organization. Reguloid 57.6 % powder MIX 1 TEASPOONFUL IN 8 OUNCES WATER AND DRINK TWICE DAILY 284 g 2 08/24/19 24 Active Alcohol Swabs (Alcohol Prep) 70 % pads USE DIRECTED FOUR TIMES DAILY 100 each 02/11/20 24 Active Continuous Glucose Plant Changer (FreeStyle Shanelle 3 [place]) deviceIndicatio ns:Type 2 diabetes mellitus with other specified complication, with long-term current use of insulin ([facility]) 1 each Use as directed. 1 each 07/31/19 25 Active Continuous Glucose Sensor (FreeStyle Shanelle 3 Plus Sensor) miscIndications :Type 2 diabetes mellitus with other specified complication, with long-term current use of insulin (CMS/HCC) Use as directed 2 each 11 07/31/19 25 Active empagliflozin-m etFORMIN (Synjardy) 12.5-1000 MGIndications:T ype 2 diabetes mellitus with unspecified diabetic retinopathy without macular edema (CMS/HCC) Take 1 tablet by mouth with breakfast and with evening meal. 60 tablet 6 07/31/19 25 Active aspirin (Aspirin Low Dose) 81 MG EC tablet Take 1 tablet (81 mg) by mouth at bedtime. 90 tablet 1 08/25/19 25 Active Multiple Vitamins-Minera ls (CertaVite/Anti oxidants) tablet TAKE 1 TABLET BY MOUTH EVERY MORNING WITH FOOD 90 tablet 1 08/25/19 25 Active insulin pen needle (Pentips) 32G x 4 mm miscIndications :Type 2 diabetes mellitus with other specified complication, with long-term current use of insulin ([facility]) Use to administer insulin twice daily 100 each 11 10/12/19 25 Active TRUEplus Lancets 33G miscIndications :Type 2 diabetes mellitus with other specified complication, with long-term current use of insulin ([facility]) TEST BLOOD SUGAR THREE TIMES DAILY 100 each 10/25/19 25 Active cholecalciferol VITAMIN D (Vitamin D-3) 50 MCG (1999) tablet TAKE 1 TABLET BY MOUTH EVERY MORNING 90 tablet 10/25/19 25 Active venlafaxine XR (Effexor XR) 150 MG 24 hr capsuleIndicati ons:Depression, reactive TAKE 1 CAPSULE BY MOUTH EVERY MORNING 90 capsule 10/25/19 25 Active atorvastatin (Lipitor) 40 MG tabletIndicatio ns:Type 2 diabetes mellitus with hyperglycemia, without long-term current use of insulin ([facility]) TAKE 1 TABLET BY MOUTH AT BEDTIME 90 tablet 10/25/19 25 Active venlafaxine XR (Effexor XR) 37.5 MG 24 hr capsuleIndicati ons:Depression, unspecified depression type TAKE 1 CAPSULE BY MOUTH EVERY MORNING 90 capsule 10/25/19 25 Active famotidine (Pepcid) 20 MG tablet Take 1 tablet (20 mg) by mouth 2 times daily. 180 tablet 10/25/19 25 Active hydrocortisone (Anusol-HC) 2.5 % rectal cream Insert into the rectum 2 times daily. 28 g 1 11/04/19 25 Active estradiol (Estrace) 0.1 MG/GM vaginal cream Apply cream in vulva daily x 14 days, then use twice weekly 42.5 g 11/04/19 25 Active Ozempic, 0.25 or 0.5 MG/DOSE, 2 MG/3ML solution pen-injector Inject 0.5 mg as directed 1 (one) time per week. 0.5 mL 2 11/15/19 25 Active ferrous gluconate (Fergon) 324 (38 Fe) MG tablet TAKE 1 TABLET BY MOUTH EVERY MORNING WITH BREAKFAST 90 tablet 11/22/19 25 Active glucose blood (FreeStyle Precision Jose Raul Test) test stripIndication s:Type 2 diabetes mellitus with other specified complication, with long-term current use of insulin (CMS/HCC) USE TO TEST BLOOD SUGAR EVERY 8 HOURS 100 each 11 11/22/19 25 Active omeprazole (PriLOSEC) [address] capsuleIndicati ons:Gastroesoph ageal reflux disease, unspecified whether esophagitis present TAKE 1 CAPSULE BY MOUTH EVERY MORNING BEFORE BREAKFAST 90 capsule 11/28/19 25 Active insulin degludec (Tresiba FlexTouch) 200 UNIT/ML injectionIndica tions:Type 2 diabetes mellitus with unspecified diabetic retinopathy without macular edema (CMS/HCC) INJECT 32 UNITS SUBCUTANEOUSLY AT BEDTIME 11/29/19 25 Active gabapentin (Neurontin) 100 MG capsuleIndicati ons:Pain TAKE 1 CAPSULE BY MOUTH EVERY MORNING and TAKE 2 CAPSULES BY MOUTH EVERY DAY AT BEDTIME 90 capsule 5 12/14/19 25 Active insulin lispro (HumaLOG KWIKPEN) 100 UNIT/ML injectionIndica tions:Type 2 diabetes mellitus with other specified complication, with long-term current use of insulin ([facility]) Inject subcutaneously 6 units before breakfast and 6 units before dinner. Do not use if skipping meal. 12/27/19 25 Active ketorolac (Acular) 0.5 % ophthalmic solution INSTILL 1 DROP IN THE AFFECTED EYE THREE TIMES DAILY STARTING 2 DAYS BEFORE SURGERY. CONTINUE DIRECTED. 01/06/20 25 Active Active Problems Problem Noted Date Diagnosed Date Preop examination 01/17/2025 Overweight (BMI 25.0-29.9) 11/04/2024 GERD (gastroesophageal reflux disease) 5 Hip pain 11/04/2024 Recurrent major depressive disorder 11/03/2024 Assessment & Plan (12/14/2024 1:20 PM EDT): During IBH Consult Lottie presenting with depressed mood, Tearful, crying spells , loss of interests/pleasure , sense of isolation/loneliness , isolating, psychomotor retardation, fatigue/loss of energy, inappropriate/excessive guilt , difficulty concentrating; for a period of 18+ mo, for most or all symptoms in the context of family issues. Pt stated feeling a bit better and able to embrace her emotions. Depressive sxs remain present. Lottie is coping by walking more and spending time outside. Discussed about referral for medication management; pt declined services for now and will contact BH team if further assistance is needed. Assessment & Plan (11/07/2024 1:32 PM EDT): During IBH Consult Lottie presenting with depressed mood, Tearful, crying spells , loss of interests/pleasure , sense of isolation/loneliness , changes in sleep difficulty falling asleep and difficulty staying asleep , fatigue/loss of energy, worthlessness, inappropriate/excessive guilt , difficulty concentrating and excessive worry/anxiety, difficulty controlling worry, anxiety/worry associated to restlessness and/or feeling keyed-up/On edge , easily fatigued , difficulty concentrating and/or mind going blank , muscle tension , and sleep disturbance difficulty falling asleep, Fear , and sense of dread ; for a period of 18+ mo, for most or all symptoms in the context of and family issues. Lottie reports struggling with personal and family issues. The passing of her mother, Lou , two years ago had also added depressive sxs. oLttie carries cultural stereotypes that stopped her in the past from seeking treatment (barriers associated with societal expectations in the culture). Pt feels sxs described above are leading to having more interpersonal and social problems on the daily basis. Lottie feels motivated to make a change and contribute to a better mental health wellbeing. SUSAN (generalized anxiety disorder) 11/11/2023 Assessment & Plan (01/18/2024 2:51 PM EDT): PROGRESS NOTE: ID: Lottie is a 53 y.o. straight-identified cis-female with prolonged grief who presents for Anxiety and Depression. During IBH Consult Lottie presenting with loss of interests/pleasure , changes in sleep difficulty falling asleep and difficulty staying asleep , change in appetite or weight reduce appetite, fatigue/loss of energy, excessive worry/anxiety, difficulty controlling worry, restless/keyed up/On edge, easily fatigued, irritability, muscle tension, and sleep disturbance difficulty falling asleep and difficulty staying asleep , and grief sxs such as intense yearning, emotional pain, avoiding reminders, loneliness; for a period of 6-12 mo, for all symptoms in the context of mother's , daughter went missing on 2011, accident at work, body pain, lack of social supports. 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 FU with work connection or PCP. RTC if she presents with worsening dizziness, JOHNSON, MS change or nausea. Sleep disturbance 09/15/2023 Assessment & Plan (09/15/2023 3:42 PM EDT): Most likely related to pain, head trauma and hyperglycemia. Microcytosis 08/10/2023 BRBPR (bright red blood per rectum) 02/27/2023 Mild major depression 02/27/2023 Health care maintenance 01/14/2023 Vaginal dryness, menopausal 01/14/2023 Ischemic optic neuropathy of right eye 8 Type 2 diabetes mellitus 03/28/2015 Resolved Problems Problem Noted Date Diagnosed Date Resolved Date Chest discomfort 01/18/2024 01/17/2025 Hypertriglyceridemia 02/27/2023 025 Allergic rhinitis 03/28/2015 01/13/2023 Encounters * This document contains information received from the source organization and may not represent a complete record from that organization. Date Type Department Care Team Description 01/30/2025 10:40 AM EDT Office Visit [facility] [address] [place] [address] Zhane Dowell MD Other fatigue (Primary Dx) 01/30/2025 Telephone [facility] MED[facility] [address] [place] [address] Lizbet Parks MD Nurse Triage 01/30/2025 Travel 01/16/2025 1:45 PM EDT Office Visit [facility] [place] [address] Lizbet Parks MD Overweight (BMI 25.0-29.9) (Primary Dx); Type 2 diabetes mellitus with other specified complication, with long-term current use of insulin (CMS/HCC); Encounter for immunization; Vaginal dryness, menopausal; Health care maintenance; Mild major depression (CMS/HCC); Preop examination 01/16/2025 Travel 01/15/2025 Telephone [facility] [place] [address] Lizbet Parks MD chartprep 01/05/2025 Telephone [facility] [place] [address] Lizbet Parks MD Pre-op Exam 12/29/2024 Orders Only [facility] [place] [address] Lizbet Parks MD Type 2 diabetes mellitus with other specified complication, with long-term current use of insulin (CMS/[facility]) (Primary Dx) 12/29/2024 Telephone [facility] [place] [address] Lizbet Parks MD Referral 12/26/2024 Travel 12/13/2024 Refill [facility] [address] [place] [address] Lizbet Parks MD Pain 11/28/2024 Travel 11/26/2024 Refill [facility] [address] [place] [address] Karolina Tariq ANP Gastroesophageal reflux disease, unspecified whether esophagitis present 11/20/2024 Refill [facility] [address] [place] [address] Lizbet Parks MD 11/20/2024 Refill [facility] [address] [place] [address] Zhane Dowell MD Type 2 diabetes mellitus with other specified complication, with long-term current use of insulin (CMS/HCC) 11/15/2024 Telephone [facility] [address] [place] [phone] Lizbet Parks MD Referral 11/14/2024 Orders Only [facility] [address] [place] [phone] Lizbet Parks MD 11/14/[address] [address] Lizbet Parks MD Referral 11/14/[address] [address] Lizbet Parks MD Med Refill 11/03/2024 11:15 AM EDT Office Visit [address] [address] Lizbet Parks MD Moderately severe major depression (CMS/HCC) (Primary Dx); Dietary counseling; Exercise counseling; Breast cancer screening by mammogram; Type 2 diabetes mellitus with other specified complication, with long-term current use of insulin (CMS/HCC); Overweight (BMI 25.0-29.9); Mild major depression (CMS/HCC); Depression with anxiety; Vaginal dryness, menopausal; Health care maintenance; Gastroesophageal reflux disease without esophagitis; Hip pain, unspecified laterality 11/03/2024 Travel 11/02/[address] [address] Lizbet Parks MD Chart Prep from Last 3 Months Immunizations Immunization Administration Dates Next Due Hep B, adult 01/16/2025,10/25/2024,11/13/2021 Influenza Injectable Quadriv alant Preservative Free IIV4 MDCK 07/04/2020,04/28/2017 Influenza injectable quadriv alent IIV4 with preservative 03/04/2016,03/28/2015 Influenza injectable quadriv alent preservative free 05/18/2019 Influenza, IIV3, injectable 03/24/2011 Influenza, Split (incl. tangela fied surface antigen) 08/09/2013,07/04/2012 Influenza, seasonal, injecta ble, preservative free 06/08/2024 Pfizer Covid-19 Vaccine 12+ 08/06/2023 Pfizer Covid-19 Vaccine 12+ Bivalent 01/13/2023 Pneumococcal Conjugate PCV 20 01/13/2023 Pneumococcal Polysaccharide PPSV23 02/15/2003 TD (adult), 2 Lf tetanus tox oid, preservative free, adsorbed 02/15/2003 Tdap 09/23/2018,07/04/2012 Zoster, Recombinant 04/11/2021,02/04/2021 Family History Medical History Relation Name Comments Heart attack Father Blindness Mother Heart attack Mother colon cancer at her 92 years Mother Relation Name Status Comments Father Grandchild leukemia Alive Mother Social History Tobacco Use Types Packs/Day Years Used Date Smoking Tobacco: Never Passive Smoke Exposure: Never Smokeless Tobacco: Never Tobacco Cessation:Counseling Given: Not Answered Alcohol Use Standard Drinks/Week Comments Never 0 (1 standard drink = 0.6 oz pur e alcohol) Depression Answer Date Recorded Patient Health Questionnaire-9 Score 14 01/19/2025 Patient Health Questionnaire-9 Score 14 01/19/2025 Last PHQ-9: Questionnaire Data Not on file 0 01/19/2025 Housing Stability Answer Date Recorded What is your housing situation today? I have esmercorey rand 03/25/[address] you [...] Orientation Straight 04/06/2022 10 :16 AM EDT Last Filed Vital Signs Vital Sign Reading [...] 12.8 oz) 025 10:52 AM EDT Height 154.9 cm (5' 1 ) 01/16/2025 2:05 PM EDT Body Mass Index 27.17 01/16/2025 2:05 PM EDT Plan of Treatment Upcoming Encounters Date Type Department Care Team (Late st Contact Info) Description 03/22/2025 10:30 AM EDT Office Visit [facility] [address] [place] [phone] Lizbet Parks MD [address] [place] [address] Health Maintenance Due Date Last Done Comments CT Colonography 1970 Colonoscopy 1970 Colorectal Cancer Screening 1970 Dental X-Ray: Full Mouth 1970 FIT DNA/Cologuard 1970 FIT 1970 FOBT 1970 Sigmoidoscopy 1970 Diabetes: Foot Exam 1980 COVID-19 Vaccine ( season) 2024 08/06/2023, 01/13/2023, 04/01/2021, Additional history exists Dental Prophylaxis 02/27/2024 08/26/2023 Dental Oral Exam 03/18/2024 09/16/2023 Eye Exam 05/10/2024 05/10/2023, 12/09/2022, 05/10/2023, Additional history exists Dental X-Ray: Bitewings 08/26/2024 08/26/2023, 07/14 Influenza Vaccine (#1) 2025 , 07/04/2020, 05/18/2019, Additional history exists Diabetes: Urine Protein Screening 03/17/2025 03/17/2024, 07/29/2023, 01/27/2023, Additional history exists Lipid Panel 03/17/2025 03/17/2024, 07/09, 01/27/2023, Additional history exists Diabetes: Hemoglobin A1C 04/18/2025 025, 10/25/2024, 07/31/2024, Additional history exists Depression Monitoring 07/22/2025 01/19/2025, 025 SDOH Screening 10/26/2025 10/26/2024 Alcohol/Substance Use Screening 11/03/2025 11/03/2024 Disability Screening 11/03/2025 11/03/2024 Tobacco Screening 01/30/2026 01/30/2025 Cervical Cancer Screening 11/13/2026 HPV/Cotest 11/13/2026 11/13/2021, 08/04/2018 Pap Smear 11/13/2026 11/13/2021 Mammogram 12/29/2026 12/29/2024, 02/05, 12/25/2021, Additional history exists DTaP/Tdap/Td Vaccines (3 - Td or Tdap) 09/23/2028 09/23/2018, 07/04/2012, 02/15/2003 RSV Patients and Patients Aged 60 years or older (1 - 1-dose 75+ series) 2045 Zoster Vaccines Completed 04/11/2021, 02/04/2021 Pneumococcal Vaccine: 50+ Years Completed 01/13/2023, 02/15/2003 HIV Screening Completed 03/17/2024, 01/06, 10/16/2021 Hepatitis C Screening Completed 03/17/2024 , 01/27/2023, 10/16/2021 Hepatitis B Vaccines Completed 01/16/2025, 10/25/2024, 11/13/2021 HIB Vaccines Aged Out No longer eligi [...] patient's age to complete this topic Meningococcal Vaccine Aged Out No neelima laura eligible based on patient's age to complete this topic RSV under 20 months Aged Out No longe r eligible based on patient's age to complete this topic Rotavirus Vaccines Aged Out No longer eligible based on patient's age to complete this topic Procedures Procedure Name Priority Date/Time Associated Diagnosis Comments POCT RAPID COVID ANTIGEN Routine 01/30/2025 11:28 AM EDT Other fatigue POCT GLYCATED HEMOGLOBIN, TOTAL Routine 01/16/2025 2:56 PM EDT Type 2 diabetes mellitus with other specified complication, with long-term current use of insulin (CMS/HCC) POCT GLUCOSE Routine 01/16/2025 2:55 PM EDT Type 2 diabetes mellitus with other specified complication, with long-term current use of insulin (CMS/HCC) BI MAMMOGRAM SCREENING TOMOSYNTHESIS BILATERAL Routine 12/29/2024 4:00 PM EDT Breast cancer screening by mammogram HEPATITIS C AB W/REFL TO HCV RNA, QN, PCR Routine 03/17/2024 9:35 AM EDT Annual physical exam HIV 1/2 ANTIGEN/ANTIBODY, FOURTH GENERATION W/RFL Routine 03/17/2024 9:35 AM EDT Annual physical exam ALBUMIN, RANDOM URINE W/CREATININE Routine 03/17/2024 9:35 AM EDT Annual physical exam LIPID PANEL, STANDARD Routine 03/17/2024 9:35 AM EDT Annual physical exam PERIODIC ORAL EVALUATION - ESTABLISHED PATIENT Routine 09/16/2023 9:00 AM EDT PROPHYLAXIS - ADULT Routine 08/26/2023 1 0:00 AM EDT Dental plaque Dental calculus BITEWINGS - 4 RADIOGRAPHIC IMAGES Routine 08/26/2023 10:00 AM EDT THINPREP IMAGING PAP AND HPV MRNA E6/E7, WITH CT/NG, TRICHOMONAS Routine 11/13/2021 11:36 AM EDT from Last 3 Months or Most Recently Relevant to Health Maintenance Results * POCT Rapid COVID Ag (01/30/2025 11:28 AM EDT) Rapid COVID Ag Negative QC Media Lot # [id number] Lot# Expiration Date [id number] Swab 01/30/2025 11:2 8 AM EDT Zhane Dowell MD POINT OF CARE TEST ENTER/E DIT ORDERABLES Final Result * (ABNORMAL) POCT HGB A1C (01/16/2025 2:56 PM EDT) Hemoglobin A1C 8.7(A) 4.0 - 5.7 % QC Media Lot # [id number] Lot# Expiration Date [id number] Blood 01/16/2025 2:56 PM EDT Lizbet Davalos MD POINT OF CARE FABI T ENTER/EDIT ORDERABLES Final Result * POCT Glucose (01/16/2025 2:55 PM EDT) Glucose Blood, POC 121 60 - 200 mg/dL QC Media Lot # [id number] Lot# Expiration Date [id number] Blood Capillary blood specimen / Unknown 01/16/2025 2:55 PM EDT Lizbet Davalos MD POINT OF CARE FABI T ENTER/EDIT ORDERABLES Final Result * BI Mammogram Screening Tomosynthesis Bilateral (12/29/2024 4:00 PM EDT) Anatomical Region Laterality Modality Breast Bilateral Mammography 12/29/2024 4:00 PM EDT Narrative 01/09/2025 11:17 AM EDT [place] [address] [place] [address] Mammography Report Signed Patient: Lottie Sanchez MR#: [id number] : 1970 Acct:[id number] Age/Sex: 54 / F ADM Date: 12/29/24 Loc: HO.MAMMO Attending Dr: Lizbet Davalos MD Ordering Physician: Lizbet Parks MD Re sults: 1Negative Date of Service: 12/29/24 Follow Up: 1 Year From Orig inal Mammogram Procedure(s): MM tomosynthesis screening BI Accession Number(s): [id number] cc: Lizbet Parks MD EXAMINATION: MM SCREENING DIGITAL BREAST TOMOSYNTHESIS, BILATERAL CLINICAL INFORMATION: Screening. Asymptomatic. COMPARISON: Mammography: Comparison is made with available priors TECHNIQUE: Digital breast mammography with tomosynthesis is performed in both the craniocaudal and mediolateral oblique views along with computer-aided detection (CAD). FINDINGS: There are scattered areas of fibroglandular density (ACR BI-RADS breast composition Category b). There are no significant masses, abnormal calcifications, or other abnormalities. MM/MM tomosynthesis screening BI IMPRESSION: No mammographic evidence of malignancy. ASSESSMENT: BI-RADS BI-RADS 1 - Negative RECOMMENDATION: Routine annual mammography screening. 1 year F/U This examination should not preclude the clinical evaluation of a suspicious palpable abnormality. This patient's information was entered into a reminder system with a target due date for their next mammogram. Electronically signed by: Luz Elena Moncada DO 01/09/2025 11:14 AM EDT Dictated By: Luz Elena Moncada DO Signed By: <Electronically signed by Luz Elena Moncada DO in OV> 01/09/25 1114 DD/ 1600 TD/TT: 12/29/24 1612 Database Administration Associate: Procedure Note Donotuseinterpreter, Image - 01/09/20[facility] [address] [place], [place] [address] Mammography Report Signed Patient: Lottie Sanchez LMR#: [id number] : 1970Acct:[id number] Age/Sex: 54 / FADM Date: 12/29/24 Loc: HO.MAMMO Attending Dr: Lizbet Davalos MD Ordering Physician: Lizbet Parks sults: 1Negative Date of Service: 12/29/24Follow Up: 1 Year From Orig inal Mammogram Procedure(s): MM tomosynthesis screening BI Accession Number(s): [id number] cc: Lizbet Parks MD EXAMINATION: MM SCREENING DIGITAL BREAST TOMOSYNTHESIS, BILATERAL CLINICAL INFORMATION: Screening. Asymptomatic. COMPARISON: Mammography: Comparison is made with available priors TECHNIQUE: Digital breast mammography with tomosynthesis is performed in both the craniocaudal and mediolateral oblique views along with computer-aided detection (CAD). FINDINGS: There are scattered areas of fibroglandular density (ACR BI-RADS breast composition Category b). There are no significant masses, abnormal calcifications, or other abnormalities. MM/MM tomosynthesis screening BI IMPRESSION: No mammographic evidence of malignancy. ASSESSMENT: BI-RADS BI-RADS 1 - Negative RECOMMENDATION: Routine annual mammography screening. 1 year F/U This examination should not preclude the clinical evaluation of a suspicious palpable abnormality. This patient's information was entered into a reminder system with a target due date for their next mammogram. Electronically signed by: Luz Elena Moncada DO 01/09/2025 11:14 AM EDT Dictated By: Luz Elena Moncada DO Signed By: <Electronically signed by Luz Elena Moncada DO in OV> 01/09/25 1114 DD/ 1600 TD/TT: 12/29/24 1612 Database Administration Associate: Lizbet Davalos MD IMG BI PROCEDURES Edited Result - Final * (ABNORMAL) Albumin, Random Urine W/Creatinine (03/17/2024 9:35 AM EDT) Creatinine, Urine 32.69 mg/dL [facility] Microalbumin Urine 12.0 mg/L [facility] Microalbum Creatinine Ratio Ur 36.7(H) <30 ug/mg cr [facility] Comment:Albumin/Creatinine R atio Reference Ranges: Normal: < 30 ug/mg creatinine Microalbuminuria: 30 - 300 ug/mg creatinineClinical Albuminuria: > 300 ug/mg creatinine Urine (Urine, Random) 03/17/2024 9:35 AM EDT 03/17/2024 11:08 AM EDT Lizbet Davalos MD LAB URINE ORDERAB LES Final Result Performing Organization Address [facility]/ZIP Co de Phone Number [facility] [address] [place] [phone] * Hepatitis C Antibody with Reflex to HCV, RNA, Quantitative, Real-Time PCR (03/17/2024 9:35 AM EDT) Hepatitis C Antibody Nonreactive Nonreactive [facility] Comment:Antibodies to HCV no t detected; does not exclude early acuteHCV infection. Blood Venous blood specimen / Unknown 03/17/2024 9:35 AM EDT 03/17/2024 11:09 AM EDT us Lizbet Davalos MD LAB BLOOD ORDERAB LES Final Result Performing Organization Address [facility]/ZIP Co de Phone Number [facility] [address] [place] [address] [phone] * HIV-1/2 Antigen and Antibodies, Fourth Generation, with Reflexes (03/17/2024 9:35 AM EDT) HIV AB/AG Nonreactive Nonreactive [facility] Comment:HIV-1 p24 Ag and/or HIV-1/HIV-2 Ab not detected.A test result that is nonreactive does not exclude thepossibility of exposure to or infection with HIV-1 and/orHIV-2. Nonreactive results in this assay for individualswith prior exposure to HIV-1 and/or HIV-2 may be due toantigen and antibody levels that are below the limit ofdetection of this assay.The [employer]over HIV Ag/Ab Combo assay result andsupplemental assay results should be interpreted inconjunction with the patient's clinical presentation,history and other laboratory results. If the results areinconsistent with clinical evidence, additional testing issuggested to confirm the result. Blood Venous blood specimen / Unknown 03/17/2024 9:35 AM EDT 03/17/2024 11:09 AM EDT us Lizbet Davalos MD LAB BLOOD ORDERAB LES Final Result [facility] [address] [place] [phone] * (ABNORMAL) Lipid Panel, Standard (03/17/2024 9:35 AM EDT) Triglycerides 299(H) <150 mg/dL [facility] Comment:Desirable Triglyceri de: less than 150 mg/dLBorderline High Triglyceride 150-199 mg/dLHigh Triglyceride: 200-499 mg/dLVery High Triglyceride: greater than or equal to 5OO mg/dL Cholesterol 180 <200 mg/dL [facility] Comment:Desirable Cholestero l: less than 200 mg/dLBorderline High Cholesterol: 200-239 mg/dLHigh Cholesterol: greater than 239 mg/dL LDL Cholesterol Calculated 71 <100 mg/dL [facility] Comment:Desirable LDL: less than 100 mg/dLNear Optimal/Above Optimal LDL: 110- 129 mg/dLBorderline High LDL: 130-159 mg/dLHigh LDL: 160-189 mg/dLVery High LDL: greater than or equal to 190 mg/dL HDL Cholesterol 50 >40 mg/dL [facility] Comment:Desirable HDL: great er than 40 mg/dL Note: This HDL assay may give artificially low results in patients with liver disease. Blood Venous blood specimen / Unknown 03/17/2024 9:35 AM EDT 03/17/2024 11:09 AM EDT Lizbet Davalos MD LAB BLOOD ORDERAB LES Final Result [facility] [address] [place] [address] [phone] * THINPREP TIS PAP AND HPV mRNA E6/E7, CT/NG, TRICH (11/13/2021 11:36 AM EDT) Chlamydia trachomatis RNA, TMA, Urogenital NOT DETECTED NOT DETECTED [facility] Clinical Information: None given [facility] COMMENT SEE COMMENT [facility] Comment: The analytical performance characteristics of this assay, when used to test SurePath(TM) specimens have been determined by [facility]. The modifications have not been cleared or approved by the FDA. This assay has been validated pursuant to the CLIA regulations and is used for clinical purposes. For additional information, please refer to https://education.Flimmer/faq/CGH919 (This link is being provided for information/ educational purposes only.) COMMENT SEE [facility]MENT [facility] Comment: EXPLANATORY NOTE: The Pap is a screening test for cervical cancer. It is not a diagnostic test and is subject to false negative and false positive results. It is most reliable when a satisfactory sample, regularly obtained, is submitted with relevant clinical findings and history, and when the Pap result is evaluated along with historic and current clinical information. COMMENT: This Pap test has been evaluated with computer assisted technology. [facility] Special Agent Group Insurance: SEE COMMENT [facility] Comment: KF, CT(ASCP) CT screening location: [address] [address] HPV nRNA E6/E7 Not Detected Not Detected [facility] Comment: Methodology: Freight Associate-Mediated Amplification This assay detects E6/E7 viral messenger RNA (mRNA) from 14 high-risk HPV types (16,18,31,33,35,39,45,51,52,56,58,59,66,68). Cervical sources are required for HPV testing. If a vaginal source from a patient who has had a total hysterectomy with removal of cervix was submitted, please contact the testing laboratory for alternative testing options. For additional information, please refer to http://MYFX.Flimmer/faq/JVS076t8 (This link if provided for information/ educational purposes only.) Interpretation/Res ult: SEE COMMENT [facility] Comment: Negative for intraepithelial lesion or malignancy. Atrophic pattern; predominantly parabasal cells LMP: NONE GIVEN [facility] Neisseria gonorrhoeae RNA, TMA, Urogenital NOT DETECTED NOT DETECTED [facility] Prev. BX: NONE GIVEN [facility] Prev. PAP: NONE [facility]IVEN [facility] SOURCE: None given [facility] Statement Of Adequacy: SATISFACTORY FOR EVALUATION [facility] Trichomonas vaginalis, QL, TMA, PAP Vial NOT DETECTED NOT DETECTED [facility] Comment: The analytical performance characteristics of this assay have been determined by [facility]. The modifications have not been cleared or approved by the FDA. This assay has been validated pursuant to the CLIA regulations and is used for clinical purposes. For additional information, please refer to [email or web address].Flimmer/ faq/Trichomonastma (This link is being provided for information/ educational purposes only.) 11/13/2021 11:3 6 AM EDT Lillie Ireland NP LAB PATHOLOGY ORDERABLES Final Result [facility] [address] from Last 3 Months or Most Recently Relevant to Health Maintenance [place] [address] [place] [address] C[place] [employer] AD[place] Care Teams Cath Lab Radiological Technologist Relationship Specialty Start Date End Date Lizbet Parks MD [address] [place] [phone] PCP - General Internal Medicine 11/06/22 Sonia Hartman, NehemiasD [address] [place] [phone] Pharmacist Internal Medicine 07/31/24 Emilie Zamora Photo Lab TechnicianBobbin Dumper 08/18/24
--- OUTSIDE RECORDS SUMMARY | 2025-01-30 12:30 | XMS_ITS | Encounter Summary ---
Author Organization [employer] Address [address] [facility] 7t [place] [address] Care Team Providers Care Kidney Trimmer Name Role Phone Lizbet Parks MD Primary Care Pro vider Sonia Hartman PharmD Unavailable [phone] Encounter Details Date Type Department Care Team (Late st Contact Info) Description 07/21/2024 Orders Only [facility] MEDICINE [address] [place], [place] [phone] Kraolina Tariq, ANP [address] [place], [place] [phone] Social History Tobacco Use Types Packs/Day Years [...] Description 03/22/2025 10:30 AM EDT Office Visit [facility] MEDICINE [address] [place] [address] [phone] Lizbet Parks MD [address] [place] [phone] documented as of this encounter Visit Diagnoses Not on filedocumented in this encounter Additional Health Concerns Assessment Noted Time PHQ-9 Depression Total Score: 9 01/18/20 24 2:37 PM EDT documented as of this encounter Care Teams Kidney Trimmer Relationship Specialty Start Date End Date Lizbet Parks MD [address] [place] [address] [phone] PCP - General Internal Medicine 11/06/22 Sonia Hartman, Camila [address] [place] [address] [phone] Pharmacist Internal Medicine 07/31/24 Emilie Zamora Coal LoaderCreel Cleaner 08/18/24 documented as of this encounter
--- OUTSIDE RECORDS SUMMARY | 2025-01-30 12:30 | XMS_ITS | Clinical Summary ---
Author Organization [facility] Address [address] [facility] [address] [place] [phone] Phone Care Team Providers Care Mold Operator Name Role Phone Lottie Schuler MD Primary [...] HEPATITIS C SCREENING 1988 HIV ONE-TIME SCREENING (18-65 YEARS) 1988 PAP SMEAR 08/25/1991 SMOKING STATUS SCREENING (Once After 26 Yrs) 1996 MAMMOGRAM 2010 COLOGUARD 08/25/2015 COLONOSCOPY 08/25/2015 COLORECTAL CANCER SCREENING 08/25/2015 FIT TEST 08/25/2015 FOBT 08/25/2015 SIGMOIDOSCOPY 08/25/2015 VIRTUAL COLONOSCOPY 08/25/2015 PNEUMOCOCCAL VACCINES (50+ years) (2 of 2 - PCV) 2020 02/15/2003 COVID-19 VACCINE (4 - season) 2024 04/01/2021, 09/22/2020, 09/01/2020 INFLUENZA VACCINE (#1) 2025 , 05/18/2019, 04/28/2017, Additional history exists Adult Td,Tdap Booster 09/23/2028 09/23/2018 , 07/04/2012, [...] topic Medical Devices Not on file Insurance [facility]ERA [facility] PCP SAVI PRADO CONNECTORCARE WELLSENSE NON NSPG PCP SILVER CLARITY CONNECTORCARE WELLSENSE NON NSPG PCP SILVER CLARITY CONNECTORCARE WELLSENSE NON NSPG PCP SILVER CLARITY CONNECTORCARE WELLSENSE NON NSPG PCP SILVER CLARITY CONNECTORCARE WELLSENSE NON NSPG PCP SILVER CLARITY CONNECTORCARE WELLSENSE NON NSPG PCP SILVER CLARITY CONNECTORCARE WELLSENSE NON NSPG PCP SAVI PRADO CONNECTORCARE Care Teams Mold Operator Relationship Specialty Start Date End Date Lottie Schuler MD [address] [place] [address] [place] [phone] PCP - General Internal Medicine 11/23/17 Additional Source Comments The information contained in this document represents components of the legal health record. It is not the complete legal health record.[facility]
--- OUTSIDE RECORDS SUMMARY | 2025-01-30 12:30 | XMS_ITS | Encounter Summary ---
Author Organization [employer] Address [address] [place] [address] 7 [place] [address] Care Team Providers Care Die Baker Name Role Phone Lizbet Parks MD Primary Care Pro vider Mg Hanna Unavailable Sonia Hartman PharmD Unavailable [phone] Reason for Visit * Reason Onset Date Comments Nurse Triage 09/28/2023 Encounter Details Date Type Department Care Team (Late st Contact Info) Description 09/28/2023 Telephone [facility] MEDICINE [address] [place], [place] [phone] Lizbet Parks MD [address] [place], [place] [phone] Nurse Triage Social History Tobacco Use Types Packs/Day Years Used Date Smoking Tobacco: Never Passive Smoke Exposure: Never Smokeless Tobacco: Never Alcohol Use Standard Drinks/Week Comments Never 0 (1 standard drink = 0.6 oz pur e alcohol) Depression Answer Date Recorded Patient Health Questionnaire-9 Score 3 02/26/2023 Housing Stability Answer Date Recorded What is [...] getting things needed for daily living? No 03/25/2023 Utilities Answer Date Recorded In the past 12 months, has t he electric, gas, oil or water company threatened to shut off services in your home? No 03/25/2023 Depression Answer Date Recorded Patient Health Questionnaire-2 Score 0 02/26/2023 Comments Unknown Sex and Gender Information Value Date Recorded Sex Assigned at Female 04/06/2022 10:16 AM EDT Legal Sex Female 10:16 AM EDT Gender Identity Female 04/06/2022 10:16 AM EDT Sexual Orientation Straight 04/06/2022 10 :16 AM EDT documented as of this encounter Miscellaneous Notes * Telephone Encounter - Saida Corona RN - 09/28/2023 11:08 AM EDT Triage call with [employer] Inspector [place] [id number] Pt reports didn't sleep well last night due to back, neck and left arm pain. Pt reports this pain has continued since accident occurred at work September 07. Pt reports left arm has some numbness and tingling and it is difficult to do daily activities at this time. Pt also reports headache, blurred vision. Pt does have referral for [facility] eye center and advised to wait for their call. Pt reports blurred vision comes and goes. Pt is taking naproxen and tylenol for pain with very little effect. Pt reports work is wanting Pt to return and Pt doesn't feel well enough to go back to work a this time. Pt also reports went to PT apt and has sinced had PT canceled and is asking why. Pt next OV scheduled with PCP 11/09/23. Earliest available in office apt with PCP not till 10/14/23. Pt is advised to come to [facility] today, opened today till 8pm and located at [address] [place] [address]. Pt agrees with this disposition and home care reviewed. Insurance is verified as active. Multiple (3) protocols were used on this call. Disposition for Call: See in Office or Video Visit Today Protocol Used: Neck Pain or Stiffness (Adult) Protocol-Based Disposition: See in Office or Video Visit Today Video visit not offered Positive Triage Questions: * Numbness in an arm or hand (i.e., loss of sensation) * Patient wants to be seen * Neck pain persists > 2 weeks * All higher-acuity triage questions were negative Care Advice Discussed: * Reassurance and Education - Neck Pain or Stiffness * Pain Medicines * Pain Medicines - Extra Notes and Warnings * Sleep * Activity * Stretching Exercises * Reasons To Call Back - Moderate pain (e.g., interferes with normal activities) lasts over 3 days - Pain lasts over 2 weeks - Pain begins to shoot into the arms - Numbness or weakness occurs in your arms or legs - You become worse Protocol Used: Back Pain (Adult) Protocol-Based Disposition: See in Office or Video Visit Today Positive Triage Question: * Numbness in an arm or hand (i.e., loss of sensation) and upper back pain * All higher-acuity triage questions were negative Care Advice Discussed: * Reassurance and Education - Back Pain * Cold or Heat * Sleep * Activity * Pain Medicines * Pain Medicines - Extra Notes and Warnings * Reasons To Call Back - Fever occurs - Numbness or weakness occurs, or bowel/bladder problems - Pain begins to shoot into the leg - Pain persists over 2 weeks - Pain becomes worse - You become worse Protocol Used: Arm Pain (Adult) Protocol-Based Disposition: See in Office or Video Visit Today or Tomorrow Video visit not offered Positive Triage Questions: * Numbness (i.e., loss of sensation) in hand or fingers * Patient wants to be seen * Moderate pain (e.g., interferes with normal activities) and present > 3 days * Pain is worsened or caused by bending the neck * All higher-acuity triage questions were negative Care Advice Discussed: * Pain Medicines * Pain Medicines - Extra Notes and Warnings * Reasons To Call Back - Mild pain lasts more than 7 days - Arm swelling occurs - Signs of infection occur (e.g., spreading redness, warmth, fever) - You become worse * Telephone Encounter - Lyn Almonte - 09/28/2023 10:09 AM EDT Symptoms: Headache, Dizziness, Back Pain - Not From Injury Outcome: Schedule a same-day appointment or talk to a nurse or provider today Reason: Due to work injury, stated wanted to see PCP The caller accepted this outcome Portuguese speaker documented in this encounter Plan of Treatment Upcoming Encounters Date Type Department Care Team (Late st Contact Info) Description 03/22/2025 10:30 AM EDT Office Visit [facility] MEDICINE [address] [place] [phone] Lizbet Parks MD [address] [place] [phone] documented as of this encounter Visit Diagnoses Not on filedocumented in this encounter Additional Health Concerns Assessment Noted Time PHQ-9 Depression Total Score: 3 02/27/20 11:54 AM EDT documented as of this encounter Care Teams Die Baker Relationship Specialty Start Date End Date Lizbet Parks MD [address] [place] [address] [phone] PCP - General Internal Medicine 11/06/22 Mg Hanna Community Health Worker 09/27/2301/03 Sonia Hartman, NehemiasD [address] [place] [address] [phone] Pharmacist Internal Medicine 07/31/24 Emilie Zamora Stave Machine TenderPipe Washer 08/18/24 documented as of this encounter
--- OUTSIDE RECORDS SUMMARY | 2025-01-30 12:30 | XMS_ITS | Encounter Summary ---
Author Organization [employer] Address [address] [facility] [address] 7t [place] [address] Care Team Providers Care Validation Analyst Name Role Phone Lizbet Parks MD Primary Care Pro vider Sonia Hartman PharmD Unavailable [phone] Encounter Details Date Type Department Care Team (Latest Contact Info) Description 01/30/2025 Travel Social History Tobacco Use Types Packs/Day Years [...] 03/22/2025 10:30 AM EDT Office [facility] MEDICINE 230 [place] [address] Lizbet Parks MD [address] [place] [phone] documented as of this encounter Visit Diagnoses Not on filedocumented in this encounter Additional Health Concerns Assessment Noted Time PHQ-9 Depression Total Score: 14 025 4:01 PM EDT documented as of this encounter Care Teams Validation Analyst Relationship Specialty Start Date End Date Lizbet Parks MD [address] [place] [phone] PCP - General Internal Medicine 11/06/22 Sonia Hartman, NehemiasD [address] [place] [phone] Pharmacist Internal Medicine 07/31/24 Emilie Zamora Fleet AdministratorEnterprise Sales Executive 08/18/24 documented as of this encounter
--- OUTSIDE RECORDS SUMMARY | 2025-01-30 12:30 | XMS_ITS | Encounter Summary ---
Author Organization [employer] Address [address] [facility] 7t [place] [address] Care Team Providers Care Living Nurse Name Role Phone Lizbet Parks MD Primary Care Pro vider Mg Hanna Unavailable Sonia Hartman PharmD Unavailable [phone] Reason for Visit * Reason Comments Med Refill Encounter Details Date Type Department Care Team (Late st Contact Info) Description 04/08/2023 Refill [facility] MEDICINE 230 [place] [address] Rosario Vega FNP Social History Tobacco Use Types Packs/Day Years [...] Description 03/22/2025 10:30 AM EDT Office Visit [facility] MEDICINE [address] [place] [phone] Lizbet Parks MD [address] [place] [phone] documented as of this encounter Visit Diagnoses Not on filedocumented in this encounter Additional Health Concerns Assessment Noted Time PHQ-9 Depression Total Score: 3 02/27/20 23 11:54 AM EDT documented as of this encounter Care Teams Living Nurse Relationship Specialty Start Date End Date Lizbet Parks MD [address] [place] [phone] PCP - General Internal Medicine 11/06/22 Mg Hanna Community Health Worker 09/27/2301/03 Sonia Hartman PharmD [address] [place] [address] [phone] Pharmacist Internal Medicine 07/31/24 Eimlie Zamora Vendor Management SpecialistAssistant Professor Of Psychology 08/18/24 documented as of this encounter
--- OUTSIDE RECORDS SUMMARY | 2025-01-30 12:30 | XMS_ITS | Clinical Summary ---
Author Organization [address] [place] [address] Address [address] [place] [address] Phone Care Team Providers Care Land Agent Name Role Phone Lizbet Parks MD Primary [...] Diagnosed Date T2DM (type 2 diabetes mellitus) ([facility] V24, CM S/[facility] V28) 04/14/2024 Vaginal dryness, menopausal 04/14/2024 Hypertriglyceridemia 04/14/2024 Mild major depression ([facility] V24) 04/14/2024 Brain concussion 04/14/2024 Sleep disturbance [...] patient's age to complete this topic Insurance [facility] Care Teams Land Agent Relationship Specialty Start Date End Date Lizbet Parks MD [address] [facility] [address] [place] [phone] PCP - General 01/20/24
--- OUTSIDE RECORDS SUMMARY | 2025-01-30 12:30 | XMS_ITS | Encounter Summary ---
Author Organization [employer] Address [address] [place] [address] 7 [place] [address] Care Team Providers Care Hog Dropper Name Role Phone Lizbet Parks MD Primary Care Pro vider Mg Hanna Unavailable Sonia Hartman PharmD Unavailable [phone] Reason for Visit * Reason Comments Med Refill Encounter Details Date Type Department Care Team (Late st Contact Info) Description 05/13/2023 Refill [facility] MEDICINE 230 [place], [place] [phone] Lizbet Parks MD 230 [place], [place] [phone] Social History Tobacco Use Types Packs/Day Years [...] Description 03/22/2025 10:30 AM EDT Office Visit [facility] MEDICINE [address] [place] [address] Lizbet Parks MD [address] [place] [phone] documented as of this encounter Visit Diagnoses Not on filedocumented in this encounter Additional Health Concerns Assessment Noted Time PHQ-9 Depression Total Score: 3 02/27/20 23 11:54 AM EDT documented as of this encounter Care Teams Hog Dropper Relationship Specialty Start Date End Date Lizbet Parks MD [address] [place] [phone] PCP - General Internal Medicine 11/06/22 Mg Hanna Community Health Worker 09/27/2301/03 Sonia Hartman, Camila [address] [place] [address] [phone] Pharmacist Internal Medicine 07/31/24 Emilie Zamora Charge Master AnalystHand Bindery Assembly Worker 3/14/25 documented as of this encounter
--- OUTSIDE RECORDS SUMMARY | 2025-01-30 12:30 | XMS_ITS | Encounter Summary ---
Author Organization [employer] Address [address] [place] [address] 7 [place] [address] Care Team Providers Care Cad Manager Name Role Phone Lizbet Parks MD Primary Care Pro vider Mg Hanna Unavailable Sonia Hartman PharmD Unavailable [phone] Reason for Visit * Reason Comments Med Refill Encounter Details Date Type Department Care Team (Late st Contact Info) Description 09/02/2023 Refill [facility] MEDICINE 230 [place], [place] [phone] Lizbet Parks MD 230 [place], [place] [phone] Social History Tobacco Use Types Packs/Day Years [...] 10:30 AM EDT Office Visit [facility] MEDICINE [address] [place] [phone] Lizbet Parks MD [address] [place] [phone] documented as of this encounter Visit Diagnoses Not on filedocumented in this encounter Additional Health Concerns Assessment Noted Time PHQ-9 Depression Total Score: 3 02/27/20 23 11:54 AM EDT documented as of this encounter Care Teams Cad Manager Relationship Specialty Start Date End Date Lizbet Parks MD [address] [place] [phone] PCP - General Internal Medicine 11/06/22 Mg Hanna Community Health Worker 09/27/2301/03 Sonia Hartman, Camila [address] [place] [address] [phone] Pharmacist Internal Medicine 07/31/24 Emilie Zamora Mountain GuideAirplane Gastank Liner Assembler 3/14/25 documented as of this encounter
--- OUTSIDE RECORDS SUMMARY | 2025-01-30 12:30 | XMS_ITS | Encounter Summary ---
Author Organization [employer] Address [address] [facility] [address] 7t [place] [address] Care Team Providers Care Parts Interpreter Name Role Phone Lizbet Parks MD Primary Care Pro vider Sonia Hartman PharmD Unavailable [phone] Reason for Visit * Reason Comments Med Refill Encounter Details Date Type Department Care Team (Late st Contact Info) Description 10/24/2024 Refill [facility] 230 [place], [place] [phone] Monika Carrera NP 230 [place], [place] [phone] Social History Tobacco Use Types Packs/Day Years [...] Description 03/22/2025 10:30 AM EDT Office Visit [facility] MEDICINE [address] [place] [address] [phone] Lizbet Parks MD [address] [place] [phone] documented as of this encounter Visit Diagnoses Not on filedocumented in this encounter Additional Health Concerns Assessment Noted Time PHQ-9 Depression Total Score: 9 01/18/20 24 2:37 PM EDT documented as of this encounter Care Teams Parts Interpreter Relationship Specialty Start Date End Date Lizbet Parks MD [address] [place] [address] [phone] PCP - General Internal Medicine 11/06/22 Sonia Hartman, Camila [address] [place] [address] [phone] Pharmacist Internal Medicine 07/31/24 Emilie Zamora Livestock HaulierBlack Puller 08/18/24 documented as of this encounter
--- OUTSIDE RECORDS SUMMARY | 2025-01-30 12:30 | XMS_ITS | Encounter Summary ---
Author Organization [employer] Address [address] [place] [address] 7 [place] [address] Care Team Providers Care Range Technician Name Role Phone Lizbet Parks MD Primary Care Pro vider Sonia Hartman PharmD Unavailable Reason for Visit * Reason Onset Date Comments Nurse Triage 01/30/2025 Encounter Details Date Type Department Care Team (Late st Contact Info) Description 01/30/2025 Telephone [facility] MEDICINE 230 [place], [place] [phone] Lizbet Parks MD 230 [place] [address] Nurse Triage Social History Tobacco Use Types [...] encounter Miscellaneous Notes * Telephone Encounter - Manasa Robertson RN - 01/30/2025 10:15 AM EDT During pharmacy visit today, pt noted to be hypotensive, mildly tachycardic. BP:86/64 HR: 104 RR: 16 O2: 96% on room air Pt reports feeling shaky inside , weak, fatigued. Denies dizziness. Reports had coffee with regular milk this AM, last ate food yesterday 4pm. Confirms taking all meds, including DM meds and iron supplement, as prescribed (pt has medbox). BS today on CGM 147 during visit per [facility] Sonia Lind. Pt open to provider visit, scheduled at [facility] today with Dr Dowell, escorted to [facility], gave warm handoff to AMALIA Molina. documented in this encounter Plan of Treatment Upcoming Encounters Date Type Department Care Team ([facility] st Contact Info) Description 03/22/2025 10:30 AM EDT Office Visit [facility] MEDICINE 230 [place] [address] Lizbet Parks MD [address] [place], [place] [phone] documented as of this encounter Visit Diagnoses Not on filedocumented in this encounter Additional Health Concerns Assessment Noted Time PHQ-9 Depression Total Score: 14 025 4:01 PM EDT documented as of this encounter Care Teams Range Technician Relationship Specialty Start Date End Date Lizbet Parks MD [address] [place] [address] PCP - General Internal Medicine 11/06/22 Sonia Hartman, PharmD [address] [place] [address] [phone] Pharmacist Internal Medicine 07/31/24 Emilie Zamora Shipping ManagerTelecasting Engineer 08/18/24 documented as of this encounter
--- OUTSIDE RECORDS SUMMARY | 2025-01-30 12:30 | XMS_ITS | Encounter Summary ---
Author Organization [employer] Address [address] [facility] 7 [place] [address] Care Team Providers Care Washer Carcass Name Role Phone Lizbet Parks MD Primary Care Pro vider Mg Hanna Unavailable Sonia Hartman PharmD Unavailable Reason for Visit * Reason Comments Med Refill Encounter Details Date Type Department Care Team (Late st Contact Info) Description 05/06/2023 Refill [facility] [address] [place] [address] Lizbet Parks MD 230 [place], [place] [phone] Pain Social History Tobacco Use Types Packs/Day Years [...] Description 03/22/2025 10:30 AM EDT Office Visit [facility] MEDICINE [address] [place] [address] Lizbet Parks MD [address] [place] [address] [phone] documented as of this encounter Visit Diagnoses Diagnosis Pain Generalized pain documented in this encounter Additional Health Concerns Assessment Noted Time PHQ-9 Depression Total Score: 3 02/27/20 23 11:54 AM EDT documented as of this encounter Care Teams Washer Carcass Relationship Specialty Start Date End Date Lizbet Parks MD [address] [place] [address] PCP - General Internal Medicine 11/06/22 Mg Hanna Community Health Worker 09/27/2301/03 Sonia Hartman, Camila [address] [place] [address] [phone] Pharmacist Internal Medicine 07/31/24 Emilie Zamora Director Of ConstructionBusiness Analytics Manager 08/18/24 documented as of this encounter
[2025-01-30 13:26] LABS: Hematocrit 42.7 % (37.0-47.0); Hemoglobin 13.7 g/dl (12.0-16.0); Mean Corpuscular HGB Conc 32.1 g/dl (31.0-35.0); Mean Corpuscular Hemoglobin 26.3 pg (27.0-33.0); Mean Corpuscular Volume 82.1 fL (80.0-98.0); NRBC Abs Auto 0.000 X10*3/uL (0.0-0.012); NRBC Pct Auto 0.0 /100WBC (0.0-0.2); Platelet Count 392 X10*3/uL (160-400); Red Blood Count 5.20 X10*6/uL (4.20-5.50); White Blood Count 7.9 X10*3/uL (4.8-10.8)
[2025-01-30 13:45] LABS: Alanine Aminotransferase 23 U/L (0-31); Albumin Level 4.3 g/dL (3.5-5.0); Alkaline Phosphatase 160 U/L (39-117); Anion Gap 11 (12-20); Aspartate Amino Transferase 26 U/L (5-31); Blood Urea Nitrogen 11 mg/dL (9-16); Calcium 9.3 mg/dL (8.4-10.2); Carbon Dioxide 29 mmol/L (22-29); Chloride 104 mmol/L (96-108); Cholesterol 184 mg/dL (<200); Estimated Glomerular Filt Rate > 60; HDL Cholesterol 53 mg/dL (>40); Potassium 5.2 mmol/L (3.3-5.1); Sodium 139 mmol/L (135-145); Total Protein 7.6 g/dL (6.5-8.0); Triglycerides 296 mg/dL (<150)
[2025-01-30 13:53] LABS: Hemoglobin A1C 252.5166 umol/L; Total Hemoglobin (HGBA1C) 3663.7752 umol/L
[2025-01-30 14:43] LABS: Folate > 20.0 ng/mL (> or = 4.0); Vitamin B12 343 pg/mL (200-900)
== END 2025-01-30 11:31 | disposition home or self-care (01) ==
LOC: HO.HHCL 11:30
PROVIDERS: PCP Student in an Organized Health Care Education/Training Program; Visit Provider Family Medicine
DX: E11.69 Type 2 diabetes mellitus with other specified complication (principal); R53.83 Other fatigue; Z79.4 Long term (current) use of insulin
CPT/HCPCS: 36415; 80053; 80061; 82043; 82306; 82570; 82607; 82746; 83036; 84443; 85027

== ENCOUNTER 2025-01-31 10:02 | Outpatient (REF) | payer MEDICAID, SELFPAY ==
--- OUTSIDE RECORDS SUMMARY | 2025-01-30 10:40 | XMS_ITS | Encounter Summary ---
Author Organization [email or web address] Address [address] [facility] [address] 7t [place] [address] Care Team Providers Care Coating Mixer Tender Name Role Phone Lizbet Parks MD Primary Care Pro vider Sonia Hartman PharmD Unavailable Reason for Visit * Reason Comments low bp Encounter Details Date Type Department Care Team (Late st Contact Info) Description 01/30/2025 10:40 AM EDT Office Visit [facility] [address] [place] [address] [phone] Zhane Dowell MD [address] [place] [address] Other fatigue (Primary Dx) Social History Tobacco [...] the past 12 months, has t he [employer], gas, oil or water company threatened to [...] Department Center 02/02/2025 2:30 PM Sulma Espinoza [facility] 03/22/2025 10:30 AM Lizbet Davalos MD MEDICINE [facility] documented in this encounter Plan of Treatment Upcoming Encounters Date Type Department Care Team (Late st Contact Info) Description 02/28/2025 10:00 AM EDT Medication Management [facility] [address] [place] [phone] Sonia Hartman, PharmD [address] [place] [address] 03/22/2025 10:30 AM EDT Office Visit [facility] [address] [place] [address] [place] [phone] Lizbet Parks MD [address] [place], [place] [phone] Scheduled Orders Name Type Priority Associated Diagnoses Orde r Schedule Basic Metabolic Panel Lab Routine Other fatigue Expected: 01/30/2025 (Approximate), Expires: 01/30/2026 documented as of this encounter Procedures Procedure Name Priority Date/Time Associated Diagnosis Comments VITAMIN D,25-OH,TOTAL,IA Routine 01/30/2025 11:38 AM EDT Other fatigue TSH W/REFLEX TO FT4 Routine 01/30/2025 1 1:38 AM EDT Other fatigue CBC Routine 01/30/2025 11:38 AM EDT Other fatigue POCT RAPID COVID ANTIGEN Routine 01/30/2025 11:28 AM EDT Other fatigue documented in this encounter Results * Vitamin D, 25-Hydroxy, Total, Immunoassay (01/30/2025 11:38 AM EDT) Vitamin D 25-OH Total 75.3 >30 ng/mL [facility] Comment: Health Based Reference Values*< 20 ng/mL [id number] ng/mL Insufficient> 30 ng/mL Sufficient*Anatoly BREWER. N Engl J Med. 2007;357:266-280There is no well-established upper level of normal vitamin Dlevels. Some laboratories use 50 ng/mL as an upper limit ofnormal. However, toxicity is patient-dependent and may occurat any level. Careful correlation with the patient'spresentation is necessary and, if there is concern forvitamin D toxicity, treatment should be consideredirrespective of the serum level.Care must be taken in interpreting Vitamin D results fromdifferent laboratories and methodologies. Published datademonstrated that results from patients undergoinghemodialysis may show a negative bias when tested withvarious automated 25-OH vitamin D assays when compared toLC-MS/MS.When testing samples from patients whose predominant form ofVitamin D is Vitamin D2, such as patients receiving VitaminD2 supplementation, results that are subtherapeutic shouldbe confirmed with another method such as LC-MS/MS. Blood Venous blood specimen / Unknown 01/30/2025 11:38 AM EDT 01/30/2025 1:11 PM EDT Zhane Dowell MD LAB BLOOD ORDERABLES Final Result Performing Organization Address [facility] Co de Phone Number [facility] [address] [place] [phone] * TSH W/Reflex to FT4 (01/30/2025 11:38 AM EDT) TSH reflex Free T4 0.66 0.32 - 4.0 uIU/mL [facility] Blood Venous blood specimen / Unknown 01/30/2025 11:38 AM EDT 01/30/2025 1:11 PM EDT Zhane Dowell MD LAB BLOOD ORDERABLES Final Result Performing Organization Address [facility] de Phone Number [facility] [address] [place] [phone] * (ABNORMAL) CBC (01/30/2025 11:38 AM EDT) White Blood Count 7.9 4.8 - 10.8 X10*3/uL [facility] Red Blood Count 5.20 4.20 - 5.50 X10*6/uL [facility] Hemoglobin 13.7 12.0 - 16.0 g/dl [facility] Hematocrit 42.7 37.0 - 47.0 % [facility] Mean Corpuscular Volume 82.1 80.0 - 98.0 fL [facility] Mean Corpuscular Hemoglobin 26.3(L) 27.0 - 33.0 pg [facility] Mean Corpuscular HGB Conc 32.1 31.0 - 35.0 g/dl [facility] Red Cell Distribution Width 15.0 11.0 - 16.0 % [facility] Platelet Count 392 160 - 400 X10*3/uL [facility] Mean Platelet Volume 10.7 9.4 - 12.3 fL [facility] NRBC Pct Auto 0.0 0.0 - 0.2 /100WBC [facility] NRBC Abs Auto 0.000 0.0 - 0.012 X10*3/uL [facility] Blood Venous blood specimen / Unknown 01/30/2025 11:38 AM EDT 01/30/2025 1:11 PM EDT Zhane Dowell MD LAB BLOOD ORDERABLES Final Result [facility] [address] [place] [phone] * POCT Rapid COVID Ag (01/30/2025 11:28 AM EDT) [facility] Rapid COVID Ag Negative QC Media Lot # [id number] Lot# Expiration Date [id number] Swab 01/30/2025 11:2 8 AM EDT Zhane Dowell MD POINT OF CARE TEST ENTER/E DIT ORDERABLES Final Result documented in this encounter Visit Diagnoses Diagnosis Other fatigue- Primary documented in this encounter Additional Health Concerns Assessment Noted Time PHQ-9 Depression Total Score: 14 025 4:01 PM EDT documented as of this encounter Care Teams Coating Mixer Tender Relationship Specialty Start Date End Date Lizbet Parks MD [address] [place] [address] PCP - General Internal Medicine 11/06/22 Sonia Hartman PharmD [address] [place] [address] Pharmacist Internal Medicine 07/31/24 Emilie Zamora Podiatric Medicine ProfessorTrash Collector 08/18/24 documented as of this encounter
--- OUTSIDE RECORDS SUMMARY | 2025-01-31 10:50 | XMS_ITS | Encounter Summary ---
Author Organization [employer] Address [address] [facility] 7t [place] [address] Care Team Providers Care Sr. Payroll Manager Name Role Phone NuryWanda galeas GRISELDA Primary Care Provider [phone] Lizbet Parks MD Primary Care Pro vider Mg Hanna Unavailable Sonia Hartman PharmD Unavailable [phone] Encounter Details Date Type Department Care Team ([facility] Contact Info) Description 07/13/2022 Orders Only [facility] 505 [place] [address] Jodie Camarillo LPN Social History Tobacco Use [...] Description 02/28/2025 10:00 AM EDT Medication Management [facility] MEDICINE 230 [place] [address] Sonia Hartman PharmD 230 [place] [address] 03/22/2025 10:30 AM EDT Office Visit [facility] MEDICINE 230 [place] [address] Lizbet Parks MD 230 [place] [address] documented as of this encounter Visit Diagnoses Not on filedocumented in this encounter Care Teams Sr. Payroll Manager Relationship Specialty Start Date End Date Wanda Polanco FNP [address] [place] [address] PCP - General Family Medicine 01/29/22 11/05/22 Lizbet Parks MD [address] [place] [address] PCP - General Internal Medicine 11/06/22 Mg Hanna Community Health Worker 09/27/2301/03 Sonia Hartman PharmD [address] [place] [address] Pharmacist Internal Medicine 07/31/24 Emilie Zamora Optometric AssistantBottle Sorter 08/18/24 documented as of this encounter
--- OUTSIDE RECORDS SUMMARY | 2025-01-31 10:50 | XMS_ITS | Encounter Summary ---
Author Organization [employer] Address [address] [place] [address] 7 [place] [address] Care Team Providers Care File Keeper Name Role Phone Lizbet Parks MD Primary Care Pro vider Sonia Hartman PharmD Unavailable [phone] Reason for Visit * Reason Onset Date Comments Nurse Triage 04/03/2024 Encounter Details Date Type Department Care Team (Late st Contact Info) Description 04/03/2024 Telephone [facility] MEDICINE 230 [place], [place] [phone] Lizbet Parks MD 230 [place] [address] Nurse Triage Social History Tobacco Use Types [...] the past 12 months, has t he [employer], gas, oil or water [employer] threatened to shut off services in your [...] 04/03/2024 10:48 AM EDT [place]riage [email or web address] [id number], Kassandra.. Pt reports left leg/arm pain and [...] also. Pt is advised to come to [facility] today to be seen by provider. Pt agrees with disposition. Pt insurance is health [employer], paper work has been filled out with [facility] assist and awaiting card at this [...] provider within 15 minutes Reason: Trouble walking Occitan Speaker (Accepted Soil Conservation Aide) documented in this encounter Plan of Treatment Upcoming Encounters Date Type Department Care Team (Late st Contact Info) Description 02/28/2025 10:00 AM EDT Medication Management [facility] MEDICINE 230 [place] [address] Sonia Hartman, PharmD 230 [place] [address] 03/22/2025 10:30 AM EDT Office Visit [facility] MEDICINE 230 [place], [place] [phone] Lizbet Parks MD 230 [place], [place] [phone] documented as of this encounter Visit Diagnoses Not on filedocumented in this encounter Additional Health Concerns Assessment Noted Time PHQ-9 Depression Total Score: 9 01/18/20 24 2:37 PM EDT documented as of this encounter Care Teams File Keeper Relationship Specialty Start Date End Date Lizbet Parks MD 230 [place], [place] [phone] PCP - General Internal Medicine 11/06/22 Sonia Hartman, NehemiasD [address] [place] [address] [phone] Pharmacist Internal Medicine 07/31/24 Emilie Zamora Electrical Assembly TechnicianSample Card Maker 08/18/24 documented as of this encounter
--- OUTSIDE RECORDS SUMMARY | 2025-01-31 10:50 | XMS_ITS | Encounter Summary ---
Author Organization [employer] Address [address] [facility] 7t [place] [address] Care Team Providers Care Business Information Manager Name Role Phone Wanda Polanco GRISELDA Primary Care Provider [phone] Lizbet Parks MD Primary Care Pro vider Mg Hanna Unavailable Sonia Hartman PharmD Unavailable Encounter Details Date Type Department Care Team (Latest Contact Info) Description 01/30/2019 Abstract [facility] CON[facility] Dental, Provider, DDS Social History [...] Description 02/28/2025 10:00 AM EDT Medication Management [facility] MED[facility] [address] [place] [address] [phone] Sonia Hartman, PharmD 230 [place], [place] [phone] 03/22/2025 10:30 AM EDT Office Visit [facility] 230 [place], [place] [phone] Lizbet Parks MD 230 [place], [place] [phone] documented as of this encounter Visit Diagnoses Not on filedocumented in this encounter Care Teams Business Information Manager Relationship Specialty Start Date End Date Wanda Polanco FNP 230 [place], [place] [phone] PCP - General Family Medicine 01/29/22 11/05/22 Lizbet Parks MD 230 [place], [place] [phone] PCP - General Internal Medicine 11/06/22 Mg Hanna Community Health Worker 09/27/2301/03 Sonia Hartman, NehemiasD [address] [place] [address] [phone] Pharmacist Internal Medicine 07/31/24 Emilie Zamora Icer Air ConditioningSifter Operator 08/18/24 documented as of this encounter
--- OUTSIDE RECORDS SUMMARY | 2025-01-31 10:50 | XMS_ITS | Encounter Summary ---
Author Organization [employer] Address [address] [facility] 7t [place] [address] Care Team Providers Care Annealer Helper Name Role Phone Wanda Polanco GRISELDA Primary Care Provider [phone] Lizbet Parks MD Primary Care Pro vider Mg Hanna Unavailable Sonia Hartman PharmD Unavailable Encounter Details Date Type Department Care Team (Latest Contact Info) Description 08/30/[address] [facility] CONVERSIONS Dental, Provider, DDS Social History [...] Upcoming Encounters Date Type Department Care Team ( st Contact Info) Description 02/28/2025 10:00 AM EDT Medication Management [facility] MEDICINE [address] [place] [address] [phone] Sonia Hartman, PharmD 230 [place] [address] 03/22/2025 10:30 AM EDT Office Visit [facility] MEDICINE 230 [place] [address] Lizbet Parks MD 230 [place], [place] [phone] documented as of this encounter Visit Diagnoses Not on filedocumented in this encounter Care Teams Annealer Helper Relationship Specialty Start Date End Date Wanda Polanco FNP 230 [place], [place] [phone] PCP - General Family Medicine 01/29/22 11/05/22 Lizbet Parks MD 230 [place], [place] [phone] PCP - General Internal Medicine 11/06/22 Mg Hanna Community Health Worker 09/27/2301/03 Sonia Hartman, NehemiasD [address] [place] [address] [phone] Pharmacist Internal Medicine 07/31/24 Emilie Zamora Supply Chain InternHighway Engineer 08/18/24 documented as of this encounter
--- OUTSIDE RECORDS SUMMARY | 2025-01-31 10:50 | XMS_ITS | Encounter Summary ---
Author Organization [employer] Address [address] [place] [address] 7 [place] [address] Care Team Providers Care Lane Marker Installer Name Role Phone Lizbet Parks MD Primary Care Pro vider Sonia Hartman PharmD Unavailable [phone] Reason for Visit * Reason Onset Date Comments Med Refill 11/14/2024 Encounter Details Date Type Department Care Team (Late st Contact Info) Description 11/14/2024 Telephone [facility] MEDICINE 230 [place], [place] [phone] Lizbet Parks MD 230 [place] [address] Med Refill Social History Tobacco Use Types [...] solution pen-injector To be sent to: - [facility] - [place], [place] - [address] [facility] documented in this encounter Plan of Treatment Upcoming Encounters Date Type Department Care Team (Late st Contact Info) Description 02/28/2025 10:00 AM EDT Medication Management [facility] MEDICINE 230 [place] [address] Sonia Hartman, PharmD [address] [place] [address] 03/22/2025 10:30 AM EDT Office Visit [facility] MEDICINE [address] [place] [phone] Lizbet Parks MD [address] [place] [address] [phone] documented as of this encounter Visit Diagnoses Not on filedocumented in this encounter Additional Health Concerns Assessment Noted Time PHQ-9 Depression Total Score: 8 11/08/19 25 10:40 AM EDT documented as of this encounter Care Teams Lane Marker Installer Relationship Specialty Start Date End Date Lizbet Parks MD [address] [place] [address] PCP - General Internal Medicine 11/06/22 Sonia Hartman, PharmD [address] [place] [address] Pharmacist Internal Medicine 07/31/24 Emliie Zamora Glass Tube BenderRacking Technician 08/18/24 documented as of this encounter
--- OUTSIDE RECORDS SUMMARY | 2025-01-31 10:50 | XMS_ITS | Encounter Summary ---
Author Organization [employer] Address [address] [facility] 7 [place] [address] Care Team Providers Care Embossing Calender Operator Name Role Phone Lizbet Parks MD Primary Care Pro vider Sonia Hartman PharmD Unavailable [phone] Reason for Visit * Reason Onset Date Comments Referral 12/29/2024 Encounter Details Date Type Department Care Team ([facility] st Contact Info) Description 12/29/2024 Telephone [facility] 230 [place], [place] [phone] Lizbet Parks MD 230 [place] [address] Referral Social History Tobacco Use Types Packs/Day [...] 12/29/2024 11:17 AM EDT Tc from From [facility] requesting an referral for Ophthalmology Appt for measures is in 01/05/25 To be send to [facility] #[phone] Please contact [facility] to clarify if referral can be send before 01/05 at [phone] Ext [phone] documented in this encounter Plan of Treatment Upcoming Encounters Date Type Department Care Team (Late st Contact Info) Description 02/28/2025 10:00 AM EDT Medication Management [facility] [address] [place] [phone] Sonia Hartman, PharmD 230 [place] [address] 03/22/2025 10:30 AM EDT Office Visit [facility] [address] [place] [address] Lizbet Parks MD 230 [place] [address] documented as of this encounter Visit Diagnoses Not on filedocumented in this encounter Additional Health Concerns Assessment Noted Time PHQ-9 Depression Total Score: 8 11/08/19 25 10:40 AM EDT documented as of this encounter Care Teams Embossing Calender Operator Relationship Specialty Start Date End Date Lizbet Parks MD 230 [place] [address] PCP - General Internal Medicine 11/06/22 Sonia Hartman, NehemiasD [address] [place] [address] Pharmacist Internal Medicine 07/31/24 Emilie Zamora Credit RepresentativeSenior Javascript Developer 08/18/24 documented as of this encounter
--- OUTSIDE RECORDS SUMMARY | 2025-01-31 10:50 | XMS_ITS | Encounter Summary ---
Author Organization [employer] Address [address] [facility] 7 [place] [address] Care Team Providers Care Bottled Beverage Inspector Name Role Phone Lizbet Parks MD Primary Care Pro vider Sonia Hartman PharmD Unavailable [phone] Reason for Visit * Reason Comments Med Refill Encounter Details Date Type Department Care Team (Late st Contact Info) Description 01/25/2024 Refill [facility] MEDICINE 230 [place], [place] [phone] Lizbet Parks MD 230 [place] [address] Social History Tobacco Use Types Packs/Day Years [...] the past 12 months, has t he [employer], gas, oil or water company threatened to [...] 10:00 AM EDT Medication Management [facility] MEDICINE [address] [place] [address] Sonia Hartman, PharmD [address] [place] [address] 03/22/2025 10:30 AM EDT Office Visit [facility] MEDICINE [address] [place] [address] Lizbet Parks MD [address] [place] [address] documented as of this encounter Visit Diagnoses Not on filedocumented in this encounter Additional Health Concerns Assessment Noted Time PHQ-9 Depression Total Score: 9 01/18/20 24 2:37 PM EDT documented as of this encounter Care Teams Bottled Beverage Inspector Relationship Specialty Start Date End Date Lizbet Parks MD [address] [place] [address] PCP - General Internal Medicine 11/06/22 Sonia Hartman, Camila [address] [place] [address] Pharmacist Internal Medicine 07/31/24 Emilie Zamora Fishing Floats AssemblerBotany Laboratory Assistant 08/18/24 documented as of this encounter
--- OUTSIDE RECORDS SUMMARY | 2025-01-31 10:51 | XMS_ITS | Encounter Summary ---
Author Organization [employer] Address [address] [facility] 7t [place] [address] Care Team Providers Care Mill Hand Plate Mill Name Role Phone Lizbet Parks MD Primary Care Pro vider Sonia Hartman PharmD Unavailable [phone] Encounter Details Date Type Department Care Team [...] Description 02/28/2025 10:00 AM EDT Medication Management [facility] MEDICINE [address] [place] [address] Sonia Hartman PharmD [address] [place] [phone] 03/22/2025 10:30 AM EDT Office Visit [facility] MEDICINE [address] [place] [address] Lizbet Parks MD [address] [place] [phone] documented as of this encounter Visit Diagnoses Not on filedocumented in this encounter Additional Health Concerns Assessment Noted Time PHQ-9 Depression Total Score: 14 025 4:01 PM EDT documented as of this encounter Care Teams Mill Hand Plate Mill Relationship Specialty Start Date End Date Lizbet Parks MD [address] [place] [address] PCP - General Internal Medicine 11/06/22 Sonia Hartman PharmD [address] [place] [phone] Pharmacist Internal Medicine 07/31/24 Emilie Zamora Needle MolderPlastics Engineer 08/18/24 documented as of this encounter
--- OUTSIDE RECORDS SUMMARY | 2025-01-31 10:51 | XMS_ITS | Encounter Summary ---
Author Organization [employer] Address [address] [facility] 7 [place] [address] Care Team Providers Care Health Education Specialist Name Role Phone Lizbet Parks MD Primary Care Pro vider Sonia Hartman PharmD Unavailable [phone] Reason for Visit * Reason Comments Med Refill Encounter Details Date Type Department Care Team (Late st Contact Info) Description 10/26/2024 Refill [facility] MEDICINE 230 [place], [place] [phone] Lizbet Parks MD 230 [place], [place] [phone] Type 2 diabetes mellitus with hyperglycemia, without long-term current use of insulin ([facility]) Social History Tobacco Use Types [...] the past 12 months, has t he [employer], gas, oil or water company threatened to [...] Description 02/28/2025 10:00 AM EDT Medication Management [facility] MEDICINE [address] [place] [address] Sonia Hartman, PharmD [address] [place] [address] 03/22/2025 10:30 AM EDT Office Visit [facility] MEDICINE [address] [place] [address] Lizbet Parks MD [address] [place] [address] documented as of this encounter Visit Diagnoses Diagnosis Type 2 diabetes mellitus with hyperglycemia, without long-term current use of insulin ([facility]) documented in this encounter Additional Health Concerns Assessment Noted Time PHQ-9 Depression Total Score: 9 01/18/20 24 2:37 PM EDT documented as of this encounter Care Teams Health Education Specialist Relationship Specialty Start Date End Date Lizbet Parks MD 230 [place], [place] [phone] PCP - General Internal Medicine 11/06/22 Sonia Hartman, NehemiasD 230 [place], [place] [phone] Pharmacist Internal Medicine 07/31/24 Emilie Zamora Burlap Roll CovererMotion Picture Film Examiner 08/18/24 documented as of this encounter
--- OUTSIDE RECORDS SUMMARY | 2025-01-31 10:51 | XMS_ITS | Encounter Summary ---
Author Organization [employer] Address 75 [facility] 7t [place] [address] Care Team Providers Care Harness Tier Name Role Phone Lizbet Parks MD Primary Care Pro vider Mg Hanna Unavailable Sonia Hartman PharmD Unavailable Encounter Details Date Type Department Care Team (Late Contact Info) Description 11/09/2022 Orders Only [facility] MED [facility]EDS 505 [place], [place] [phone] Jodie Camarillo LPN Social History Tobacco Use [...] Encounters Date Type Department Care Team (Late Contact Info) Description 02/28/2025 10:00 AM EDT Medication Management [facility] MEDICINE 230 [place], [place] [phone] Sonia Hartman, PharmD 230 [place], [place] [phone] 03/22/2025 10:30 AM EDT Office Visit [facility] MEDICINE [address] [place] [address] [phone] Lizbet Parks MD [address] [place] [address] [phone] documented as of this encounter Visit Diagnoses Not on filedocumented in this encounter Care Teams Harness Tier Relationship Specialty Start Date End Date Lizbet Parks MD [address] [place] [address] [phone] PCP - General Internal Medicine 11/06/22 Mg Hanna Community Health Worker 09/27/2301/03 Sonia Hartman, Camila [address] [place] [address] [phone] Pharmacist Internal Medicine 07/31/24 Emilie Zamora Patient Financial CoordinatorTower Crane Operator 08/18/24 documented as of this encounter
--- OUTSIDE RECORDS SUMMARY | 2025-01-31 10:51 | XMS_ITS | Encounter Summary ---
Author Organization [employer] Address [address] [place] [address] 7 [place] [address] Care Team Providers Care Equal Opportunity Officer Name Role Phone Lizbet Parks MD Primary Care Pro vider Mg Hanna Unavailable Sonia Hartman PharmD Unavailable [phone] Reason for Visit * Reason Comments Med Refill Encounter Details Date Type Department Care Team (Late st Contact Info) Description 05/13/2023 Refill [facility] MEDICINE 230 [place], [place] [phone] Lizbet Parks MD 230 [place], [place] [phone] Social History Tobacco Use Types Packs/Day Years [...] Description 02/28/2025 10:00 AM EDT Medication Management [facility] MEDICINE [address] [place] [phone] Sonia Hartman, PharmD [address] [place] [address] 03/22/2025 10:30 AM EDT Office Visit [facility] MEDICINE [address] [place] [address] Lizbet Parks MD [address] [place] [address] documented as of this encounter Visit Diagnoses Not on filedocumented in this encounter Additional Health Concerns Assessment Noted Time PHQ-9 Depression Total Score: 3 02/27/20 23 11:54 AM EDT documented as of this encounter Care Teams Equal Opportunity Officer Relationship Specialty Start Date End Date Lizbet Parks MD [address] [place] [address] PCP - General Internal Medicine 11/06/22 Mg Hanna Community Health Worker 09/27/2301/03 Sonia Hartman, NehemiasD [address] [place] [phone] Pharmacist Internal Medicine 07/31/24 Emilie Zamora Crystal CutterRn Circulating 08/18/24 documented as of this encounter
--- OUTSIDE RECORDS SUMMARY | 2025-01-31 10:51 | XMS_ITS | Encounter Summary ---
Author Organization [facility] [employer] Address [address] [place] [address] [address] [place] [address] Care Team Providers Care Logger All Round Name Role Phone Lizbet Parks MD Primary Care Pro vider Sonia Hartman PharmD Unavailable [phone] Reason for Visit * Reason Onset Date Comments Results 01/30/2025 Encounter Details Date Type Department Care Team (Latest Contact Info) Description 01/30/2025 Results Follow-Up [facility] MED[facility]INE [address] [place] [address] [phone] Lizbet Parks MD [address] [place] [address] Albumin, Random Urine W/Creatinine, Comprehensive Metabolic Panel, Hemoglobin A1c, Additional followed-up results: 2 Social History Tobacco Use Types Packs/Day Years [...] t he electric, gas, oil or water [employer] threatened to shut off services in your [...] encounter Miscellaneous Notes * Telephone Encounter - Miriam Gallegos RN - 01/30/2025 4:26 PM EDT TC placed to pt with S manager of creative services #[id number] to inform of pt lab results below indicating slightly lower potassium levels. The pt was instructed to have labs repeated tomorrow to check on K levels andthe pt will be contacted with the results. Pt was agreeable to these instructions and had no further questions at this time. ----- Message from Lizbet Davalos MD sent at 01/30/2025 4:07 PM EDT ----- Please inform pt her potassium is slight elevated on today's labs Would like to repeat it if pt can get lab repeated tomorrow -I ordered lab today Thanks ----- Message ----- From: Interface, Lab Results In Sent: 01/30/2025 1:46 PM EDT To: Lizbet Davalos MD * Result Encounter Note - Lizbet Davalos MD - 01/30/2025 4:07 PM EDT Please inform pt her potassium is slight elevated on today's labs Would like to repeat it if pt can get lab repeated tomorrow -I ordered lab today Thanks documented in this encounter Plan of Treatment Upcoming Encounters Date Type Department Care Team (Late st Contact Info) Description 02/28/2025 10:00 AM EDT Medication Management [facility] MED[facility]INE [address] [place] [phone] Sonia Hartman PharmD [address] [place] [phone] 03/22/2025 10:30 AM EDT Office Visit [facility]INE [address] [place] [phone] Lizbet Parks MD [address] [place] [phone] documented as of this encounter Visit Diagnoses Not on filedocumented in this encounter Additional Health Concerns Assessment Noted Time PHQ-9 Depression Total Score: 14 025 4:01 PM EDT documented as of this encounter Care Teams Logger All Round Relationship Specialty Start Date End Date Lizbet Parks MD [address] [place] [id number] PCP - General Internal Medicine 11/06/22 Sonia Hartman PharmD [address] [place] [phone] Pharmacist Internal Medicine 07/31/24 Emilie Zamora Crossbar Switch AdjusterInternal Recruiter 08/18/24 documented as of this encounter
--- OUTSIDE RECORDS SUMMARY | 2025-01-31 10:51 | XMS_ITS | Clinical Summary ---
Author Organization [employer] Address [address] [facility] [address] [place] [address] Care Team Providers Care Compliance Professional Name Role Phone Lizbet Parks MD Primary Care Pro vider Sonia Hartman PharmD Unavailable [phone] Allergies No known active allergies Medications * [...] 100 each 02/11/20 24 Active Continuous Glucose Tube Former Operator (FreeStyle Shanelle [address]) deviceIndicatio ns:Type 2 diabetes mellitus with other specified complication, with long-term current use of insulin ([facility]) 1 each Use as directed. 1 each [...] complication, with long-term current use of insulin ([facility]) Use to administer insulin twice daily 100 each 11 10/12/19 25 Active TRUEplus Lancets 33G miscIndications :Type 2 diabetes mellitus with other specified complication, with long-term current use of insulin ([facility]) TEST BLOOD SUGAR THREE TIMES DAILY 100 [...] hyperglycemia, without long-term current use of insulin ([facility]) TAKE 1 TABLET BY MOUTH AT BEDTIME [...] twice weekly 42.5 g 11/04/19 25 Active ferrous gluconate (Fergon) 324 (38 [...] complication, with long-term current use of insulin ([facility]) Inject subcutaneously 6 units before breakfast and 6 units before dinner. Do not use if skipping meal. 12/27/19 25 Active ketorolac (Acular) 0.5 % ophthalmic solution INSTILL 1 DROP IN THE AFFECTED EYE THREE TIMES DAILY STARTING 2 DAYS BEFORE SURGERY. CONTINUE DIRECTED. 01/06/20 25 Active semaglutide (Ozempic, 1 MG/DOSE,) 4 MG/3ML solution pen-injectorInd ications:Type 2 diabetes mellitus with other specified complication, with long-term current use of insulin ([facility]) Inject 1 mg under the skin 1 (one) time per week. 1 each 1 01/31/20 25 Active Ozempic, 0.25 or 0.5 MG/DOSE, 2 MG/3ML solution pen-injector Inject 0.5 mg as directed 1 (one) time per week. 0.5 mL 2 11/15/19 25 025 Discontin ued(Dose adjustmen t) Active Problems Problem Noted Date Diagnosed Date Preop examination 01/17/2025 Overweight (BMI 25.0-29.9) 11/04/2024 GERD (gastroesophageal reflux disease) Hip pain 11/04/2024 Recurrent major depressive disorder [...] declined services for now and will contact team if further assistance is needed. Assessment [...] years ago had also added depressive sxs. Lottie carries cultural stereotypes that stopped her in [...] intervention , Patient to reach out to [facility] team as needed, and Patient to engage [...] Description 01/30/2025 10:40 AM EDT Office Visit [facility] [address] Zhane Dowell MD Other fatigue (Primary Dx) 01/30/2025 Orders Only [facility] [place] [address] Lizbet Parks MD Hyperkalemia (Primary Dx) 01/30/2025 Results Follow-Up [facility] [place] [address] Lizbet Parks MD Albumin, Random Urine W/Creatinine, Comprehensive Metabolic Panel, Hemoglobin A1c, Additional followed-up results: 2 01/30/2025 Telephone [facility] [place] [address] Lizbet Parks MD Nurse Triage 01/30/2025 Travel 01/16/2025 1:45 PM EDT Office Visit [facility] [place] [address] Lizbet Parks MD Overweight (BMI 25.0-29.9) (Primary Dx); Type 2 diabetes mellitus with other specified complication, with long-term current use of insulin (CMS/HCC); Encounter for immunization; Vaginal dryness, menopausal; Health care maintenance; Mild major depression (CMS/HCC); Preop examination 01/16/2025 Travel 01/15/2025 Telephone [facility] [place] [place] [address] Lizbet Parks MD chartprep 01/05/2025 Telephone [facility] [place] [address] Lizbet Parks MD Pre-op Exam 12/29/2024 Orders Only [facility] [place] [address] Lizbet Parks MD Type 2 diabetes mellitus with other specified complication, with long-term current use of insulin (CMS/HCC) (Primary Dx) 12/29/2024 Telephone [facility] [place] [place] [address] Lizbet Parks MD Referral 12/26/2024 Travel 12/13/2024 Refill [facility] [address] [facility] [place] [address] Lizbet Parks MD Pain 11/28/2024 Travel 11/26/2024 Refill [facility] [address] [place] [address] Karolina Tariq ANP Gastroesophageal reflux disease, unspecified whether esophagitis present 11/20/2024 Refill [facility] [address] [place] [address] Lizbet Parks MD 11/20/2024 Refill [facility] [address] [place] [address] Zhane Dowell MD Type 2 diabetes mellitus with other specified complication, with long-term current use of insulin (CMS/HCC) 11/15/2024 Telephone [facility] [address] [place] [phone] Lizbet Parks MD Referral 11/14/2024 Orders Only [facility] [address] [place] [address] Lizbet Parks MD 11/14/2024 Telephone [facility] [address] [place] [phone] Lizbet Parks MD Referral 11/14/2024 Telephone [facility] [address] [place] [phone] Lizbet Parks MD Med Refill 11/03/2024 11:15 AM EDT Office Visit [facility] [address] [place] [address] Lizbet Parks MD Moderately severe major depression (CMS/HCC) (Primary Dx); Dietary counseling; Exercise counseling; Breast cancer screening by mammogram; Type 2 diabetes mellitus with other specified complication, with long-term current use of insulin (CMS/HCC); Overweight (BMI 25.0-29.9); Mild major depression (CMS/HCC); Depression with anxiety; Vaginal dryness, menopausal; Health care maintenance; Gastroesophageal reflux disease without esophagitis; Hip pain, unspecified laterality 11/03/2024 Travel 11/02/2024 Telephone [facility] [address] [place] [phone] Lizbet Parks MD Chart Prep from Last [...] your housing situation today? I have esmer giorgi 03/25/[address] you li [...] Description 02/28/2025 10:00 AM EDT Medication Management [facility] [address] [place] [address] Sonia Hartman, NehemiasD [address] [place] [address] 03/22/2025 10:30 AM EDT Office Visit [facility] [address] [place], [place] [phone] Lizbet Parks MD [address] [place], [place] [phone] Health Maintenance Due Date Last Done Comments CT Colonography 1970 Colonoscopy 1970 Colorectal Cancer Screening 1970 Dental X-Ray: Full Mouth 1970 FIT DNA/Cologuard 1970 FIT 1970 FOBT 1970 Sigmoidoscopy 1970 Diabetes: Foot Exam 1980 COVID-19 Vaccine ( season) 2024 08/06/2023, 01/13/2023, 04/01/2021, Additional history exists Dental Prophylaxis 02/27/2024 08/26/2023 Dental Oral Exam 03/18/2024 09/16/2023 Eye Exam 05/10/2024 05/10/2023, 09/2022, 05/10/2023, Additional history exists Dental X-Ray: Bitewings 08/26/2024 08/26/2023, 07/14 Influenza Vaccine (#1) 2025 , 07/04/2020, 05/18/2019, Additional history exists Diabetes: Hemoglobin A1C 05/02/2025 025, 01/16/2025, 10/25/2024, Additional history exists Depression Monitoring 07/22/2025 01/19/2025, 025 SDOH Screening 10/26/2025 10/26/2024 Alcohol/Substance Use Screening 11/03/2025 11/03/2024 Disability Screening 11/03/2025 11/03/2024 Diabetes: Urine Protein Screening 01/30/2026 01/30/2025, 03/17/2024, 07/29/2023, Additional history exists Lipid Panel 01/30/2026 01/30/2025, 03/07, 07/29/2023, Additional history exists Tobacco Screening 01/30/2026 01/30/2025 Cervical Cancer Screening [...] Routine 01/30/2025 11:38 AM EDT Other fatigue VITAMIN B12/FOLATE, SERUM PANEL Routine 01/30/2025 11:38 AM EDT Type 2 diabetes mellitus with other specified complication, with long-term current use of insulin (CMS/HCC) LIPID PANEL, STANDARD Routine 01/30/2025 11:38 AM EDT Type 2 diabetes mellitus with other specified complication, with long-term current use of insulin (CMS/HCC) HEMOGLOBIN A1C Routine 01/30/2025 11:38 AM EDT Type 2 diabetes mellitus with other specified complication, with long-term current use of insulin (CMS/HCC) COMPREHENSIVE METABOLIC PANEL Routine 01/30/2025 11:38 AM EDT Type 2 diabetes mellitus with other specified complication, with long-term current use of insulin (CMS/HCC) ALBUMIN, RANDOM URINE W/CREATININE Routine 01/30/2025 11:38 AM EDT Type 2 diabetes mellitus with other specified complication, with long-term current use of insulin (CMS/HCC) POCT RAPID COVID ANTIGEN Routine 01/30/2025 11:28 [...] Recently Relevant to Health Maintenance Results * Vitamin D, 25-Hydroxy, Total, Immunoassay (01/30/2025 11:38 AM EDT) Vitamin D 25-OH Total 75.3 >30 ng/mL [facility] Comment: Health Based Reference Values*< 20 ng/mL Oqkpehvtq01-94 ng/mL Insufficient> 30 ng/mL Sufficient*Anatoly BREWER. N [...] 11:38 AM EDT 01/30/2025 1:11 PM EDT us Zhane Dowell MD LAB BLOOD ORDERABLES Final Result Performing Organization Address City/[facility]/ZIP Co de Phone Number [facility] [address] [place] [phone] * Vitamin B12 (Cobalamin) and Folate Panel, Serum (01/30/2025 11:38 AM EDT) Vitamin B12 343 200 - 900 pg/mL [facility] Comment:NORMAL 200-900 PG/ML INDETERMINATE 160-199 PG/ML DEFICIENT < 160 PG/ML Folate >20.0 > or = 4.0 ng/mL [facility] Comment:Reference Values:> o r = 4.0 ng/mL< 4.0 ng/mL suggests folate deficiency Methotrexate, aminopterin and folinic acid(leucovorin) are chemotherapeutic agents whose molecularstructures are similar to folate; therefore, the Architectfolate assay cannot be used for patients using these drugs. Blood 01/30/2025 11:3 8 AM EDT 01/30/2025 1:11 PM EDT Lizbet Davalos MD LAB BLOOD ORDERAB LES Final Result Performing Organization Address [facility] Co de Phone Number [facility] [address] [place] [phone] * TSH W/Reflex to FT4 (01/30/2025 11:38 AM EDT) TSH reflex Free T4 0.66 0.32 - 4.0 uIU/mL [facility] Blood Venous blood specimen / Unknown 01/30/2025 11:38 AM EDT 01/30/2025 1:11 PM EDT us Zhane Dowell MD LAB BLOOD ORDERABLES Final Result Performing Organization Address [facility]/ZIP Co de Phone Number [facility] [address] [place] [phone] * Albumin, Random Urine W/Creatinine (01/30/2025 11:38 AM EDT) Creatinine, Urine 38.46 mg/dL [facility] Microalbumin Urine <5.0 mg/L [facility] Microalbum Creatinine Ratio Ur TNP <30 ug/mg cr [facility] Comment:Unable to calculate albumin/creatinine ratio due to lowmicroalbumin or creatinine result. Urine (Urine, Random) 01/30/2025 11:38 AM EDT 01/30/2025 1:05 PM EDT us Lizbet Davalos MD LAB URINE ORDERAB LES Final Result [facility] [address] [place] [phone] * (ABNORMAL) CBC (01/30/2025 11:38 AM EDT) White Blood Count 7.9 4.8 - 10.8 X10*3/uL [facility] Red Blood Count 5.20 4.20 - 5.50 X10*6/uL [facility] Hemoglobin 13.7 12.0 - 16.0 g/dl [facility] Hematocrit 42.7 37.0 - 47.0 % [facility] Mean Corpuscular Volume 82.1 80.0 - 98.0 fL [facility] Mean Corpuscular Hemoglobin 26.3(L) 27.0 - 33.0 pg [facility] Mean Corpuscular HGB Conc 32.1 31.0 - 35.0 g/dl [facility] Red Cell Distribution Width 15.0 11.0 - 16.0 % [facility] Platelet Count 392 160 - 400 X10*3/uL [facility] Mean Platelet Volume 10.7 9.4 - 12.3 fL [facility] NRBC Pct Auto 0.0 0.0 - 0.2 /100WBC [facility] NRBC Abs Auto 0.000 0.0 - 0.012 X10*3/uL [facility] Blood Venous blood specimen / Unknown 01/30/2025 11:38 AM EDT 01/30/2025 1:11 PM EDT us Zhane Dowell MD LAB BLOOD ORDERABLES Final Result Performing Organization Address City/[facility]/ZIP Co de Phone Number [facility] [address] [place] [phone] * (ABNORMAL) Hemoglobin A1c (01/30/2025 11:38 AM EDT) Hemoglobin A1c 8.5(H) <6.0 % [facility] Comment:Hemoglobin A1C Refer ence Range Adults: 4.8 - 6.0 % Non diabetic: < 6.0 % Goal: < 7.0 %Additional Action Suggested: > 8.0 %Note: Hemoglobin A1c results are invalid for patients with abnormal amounts of HbF. Blood transfusions may impact the HbA1c concentration in the patient sample. Estimated Average Glucose 197 mg/dL [facility] Comment:eAG = Estimated ave rage glucose which is %A1C expressed asaverage glucose, using the formula of the Y2D-PxcmpokCsunlqb Glucose study (ADAG), Diabetes Care, Vol.31,#8,Jan. 2007 Blood Venous blood specimen / Unknown 01/30/2025 11:38 AM EDT 01/30/2025 1:11 PM EDT us Lizbet Davalos MD LAB BLOOD ORDERAB LES Final Result [facility] [address] [place] [phone] * (ABNORMAL) Lipid Panel, Standard (01/30/2025 11:38 AM EDT) Triglycerides 296(H) <150 mg/dL [facility] Comment:Desirable Triglyceri de: less than 150 mg/dLBorderline High Triglyceride 150-199 mg/dLHigh Triglyceride: 200-499 mg/dLVery High Triglyceride: greater than or equal to 5OO mg/dL Cholesterol 184 <200 mg/dL [facility] Comment:Desirable Cholestero l: less than 200 mg/dLBorderline High Cholesterol: 200-239 mg/dLHigh Cholesterol: greater than 239 mg/dL LDL Cholesterol Calculated 72 <100 mg/dL [facility] Comment:Desirable LDL: less than 100 mg/dLNear Optimal/Above Optimal LDL: 110- 129 mg/dLBorderline High LDL: 130-159 mg/dLHigh LDL: 160-189 mg/dLVery High LDL: greater than or equal to 190 mg/dL HDL Cholesterol 53 >40 mg/dL [facility] Comment:Desirable HDL: great er than 40 mg/dL Note: This HDL assay may give artificially low results in patients with liver disease. Blood Venous blood specimen / Unknown 01/30/2025 11:38 AM EDT 01/30/2025 1:11 PM EDT Lizbet Davalos MD LAB BLOOD ORDERAB LES Final Result [facility] [address] [place] [phone] * (ABNORMAL) Comprehensive Metabolic Panel (01/30/2025 11:38 AM EDT) Sodium 139 135 - 145 mmol/L [facility] Potassium 5.2(H) 3.3 - 5.1 mmol/L [facility] Chloride 104 96 - 108 mmol/L [facility] Carbon Dioxide 29 22 - 29 mmol/L [facility] Anion Gap 11(L) 12 - 20 [facility] Urea Nitrogen (BUN) 11 9 - 16 mg/dL [facility] Creatinine, Serum 0.77 0.5 - 1.4 mg/dL [facility] Estimated Glomerular Filt Rate >60 [facility] Comment:Chronic Kidney Disea se: Estimated GFR < 60 mL/min/1.54i2Jpogbd Kidney Disease: Estimated GFR < 15 mL/min/1.73m2 Glucose 214(H) 60 - 115 mg/dL [facility] Calcium 9.3 8.4 - 10.2 mg/dL [facility] Bilirubin, Total 0.2 0.0 - 1.0 mg/dL [facility] Aspartate Amino Transferase 26 5 - 31 U/L [facility] Alanine Aminotransferase 23 0 - 31 U/L [facility] Total Protein 7.6 6.5 - 8.0 g/dL [facility] Albumin Level 4.3 3.5 - 5.0 g/dL [facility] Alkaline Phosphatase 160(H) 39 - 117 U/L [facility] Blood Venous blood specimen / Unknown 01/30/2025 11:38 AM EDT 01/30/2025 1:11 PM EDT Lizbet Davalos MD LAB BLOOD ORDERAB LES Final Result Performing Organization Address City/State/[facility] Co de Phone Number [facility] [address] [place] [phone] * POCT Rapid COVID Ag (01/30/2025 11:28 AM EDT) Rapid COVID Ag Negative QC Media Lot # [id number] Lot# Expiration Date 826 Swab 01/30/2025 11:2 8 AM EDT Zhane Dowell MD POINT OF CARE TEST ENTER/E DIT ORDERABLES Final Result * (ABNORMAL) POCT HGB A1C (01/16/2025 2:56 PM EDT) Hemoglobin A1C 8.7(A) 4.0 - 5.7 % QC Media Lot # [id number] Lot# Expiration Date Blood 01/16/2025 2:56 PM EDT Lizbet Davalos MD POINT OF CARE FABI T ENTER/EDIT ORDERABLES Final Result * POCT Glucose (01/16/2025 2:55 PM EDT) Glucose Blood, POC 121 60 - 200 mg/dL QC Media Lot # [id number] Lot# Expiration Date ,552,031 Blood Capillary blood specimen / Unknown 01/16/2025 2:55 PM EDT Lizbet Davalos MD POINT OF CARE FABI T ENTER/EDIT ORDERABLES Final Result * BI Mammogram Screening Tomosynthesis Bilateral (12/29/2024 4:00 PM EDT) Anatomical Region Laterality Modality Breast Bilateral Mammography 12/29/2024 4:00 PM EDT Narrative 01/09/2025 11:17 AM EDT [facility] [address] [place] [address] Mammography Report Signed Patient: Lottie Sanchez MR#: [id number] : 1970 Acct:[id number] Age/Sex: 54 / F ADM Date: 12/29/24 Loc: HO.MAMMO Attending Dr: Lizbet Davalos MD Ordering Physician: Lizbet Parks MD Re sults: 1Negative Date of Service: 12/29/24 Follow Up: 1 Year From [facility] Mammogram Procedure(s): MM tomosynthesis screening BI Accession Number(s): [id number] cc: Lizbet Parks MD EXAMINATION: MM SCREENING [...] Elena Moncada DO 01/09/2025 11:14 AM EDT RP Dictated By: Luz Elena Moncada DO Signed By: <Electronically signed by Luz Elena Moncada DO in OV> 01/09/25 1114 DD/ 1600 TD/TT: 12/29/24 1612 Mortgage Or Loan Underwriter: Procedure Note Donotuseinterpreter, Image - 01/09/20[facility] [address] [place] [address] Mammography Report Signed Patient: Lottie Sanchez LMR#: [id number] : 1970Acct:[id number] Age/Sex: 54 / FADM Date: 12/29/24 Loc: HO.MAMMO Attending Dr: Lizbet Davalos MD Ordering Physician: Lizbet Parks sults: 1Negative Date of Service: 12/29/24Follow Up: 1 Year From Orig inal Mammogram Procedure(s): MM tomosynthesis screening BI Accession Number(s): [id number] cc: Lizbet Parks MD EXAMINATION: MM SCREENING [...] 01/09/25 1114 DD/ 1600 TD/TT: 12/29/24 1612 Mortgage Or Loan Underwriter: Lizbet Davalos MD IMG BI PROCEDURES Edited Result - Final * Hepatitis C Antibody with Reflex to HCV, RNA, Quantitative, Real-Time PCR (03/17/2024 9:35 AM EDT) Hepatitis C Antibody Nonreactive Nonreactive [facility] Comment:Antibodies to HCV no t detected; does not exclude early acuteHCV infection. Blood Venous blood specimen / Unknown 03/17/2024 9:35 AM EDT 03/17/2024 11:09 AM EDT us Lizbet Davalos MD LAB BLOOD ORDERAB LES Final Result [facility] [address] [place] [phone] * HIV-1/2 Antigen and Antibodies, Fourth Generation, with Reflexes (03/17/2024 9:35 AM EDT) HIV AB/AG Nonreactive Nonreactive [facility] Comment:HIV-1 p24 Ag and/or HIV-1/HIV-2 Ab not detected.A test result that is nonreactive does not exclude thepossibility of exposure to or infection with HIV-1 and/orHIV-2. Nonreactive results in this assay for individualswith prior exposure to HIV-1 and/or HIV-2 may be due toantigen and antibody levels that are below the limit ofdetection of this assay.The [facility] HIV Ag/Ab Combo assay result andsupplemental assay results should be interpreted inconjunction with the patient's clinical presentation,history and other laboratory results. If the results areinconsistent with clinical evidence, additional testing issuggested to confirm the result. Blood Venous blood specimen / Unknown 03/17/2024 9:35 AM EDT 03/17/2024 11:09 AM EDT Lizbet Davalos MD LAB BLOOD ORDERAB LES Final Result [facility] [address] [place] [phone] * THINPREP TIS PAP AND HPV mRNA E6/E7, CT/NG, TRICH (11/13/2021 11:36 AM EDT) Chlamydia trachomatis RNA, TMA, Urogenital NOT DETECTED NOT DETECTED [email or web address] Clinical Information: None given [email or web address] COMMENT SEE COMMENT [facility] Comment: The analytical performance characteristics of this assay, when used to test SurePath(TM) specimens have been determined by [employer]. The modifications have not been cleared or approved by the FDA. This assay has been validated pursuant to the CLIA regulations and is used for clinical purposes. For additional information, please refer to https://education.ikeGPS/faq/NIG963 (This link is being provided for information/ [...] has been evaluated with computer assisted technology. [email or web address] Boarding Room Fixer: SEE COMMENT [email or web address] Comment: KF, CT(ASCP) CT screening location: [address] [address] HPV nRNA E6/E7 Not Detected Not Detected [facility] Comment: Methodology: Emergency Doctor-Mediated Amplification This assay detects E6/E7 viral messenger RNA (mRNA) from 14 high-risk HPV types (16,18,31,33,35,39,45,51,52,56,58,59,66,68). Cervical sources are required for HPV testing. If a vaginal source from a patient who has had a total hysterectomy with removal of cervix was submitted, please contact the testing laboratory for alternative testing options. For additional information, please refer to http://[employer].ikeGPS/faq/MIM768a7 (This link if provided for information/ educational [...] of this assay have been determined by [employer]. The modifications have not been cleared or approved by the FDA. This assay has been validated pursuant to the CLIA regulations and is used for clinical purposes. For additional information, please refer to http://[employer].ikeGPS/ faq/Trichomonastma (This link is being provided for information/ educational purposes only.) 11/13/2021 11:3 6 AM EDT Lillie Ireland NP LAB PATHOLOGY ORDERABLES Final Result [facility] [address] from Last 3 Months or Most Recently Relevant to Health Maintenance Insurance [facility] C[place] AD[place] Care Teams Compliance Professional Relationship Specialty Start Date End Date Lizbet Parks MD [address] [place] [phone] PCP - General Internal Medicine 11/06/22 Sonia Hartman, PharmD [address] [place] [address] [phone] Pharmacist Internal Medicine 07/31/24 Emilie Zamora Business Objects ConsultantSenior Electrical Estimator 08/18/24
--- OUTSIDE RECORDS SUMMARY | 2025-01-31 10:51 | XMS_ITS | Encounter Summary ---
Author Organization [employer] Address [address] [place] [address] 7 [place] [address] Care Team Providers Care Pipe Fitter Supervisor Maintenance Name Role Phone Lizbet Parks MD Primary Care Pro vider Sonia Hartman PharmD Unavailable [phone] Reason for Visit * Reason Onset Date Comments Nurse Triage 01/30/2025 Encounter Details Date Type Department Care Team (Late st Contact Info) Description 01/30/2025 Telephone [facility] 230 [place], [place] [phone] Lizbet Parks MD 230 [place] [address] Nurse Triage Social History Tobacco Use Types [...] today on CGM 147 during visit per [facility] Sonia Lind. Pt open to provider visit, scheduled at [facility] today with Dr Dowell, escorted to [facility], gave warm handoff to AMALIA Molina. documented in this encounter Plan of Treatment Upcoming Encounters Date Type Department Care Team (Late st Contact Info) Description 02/28/2025 10:00 AM EDT Medication Management [facility] [address] [place] [phone] Sonia Hartman PharmD 230 [place] [address] 03/22/2025 10:30 AM EDT Office Visit [facility] [address] [place] [address] Lizbet Parks MD [address] [place] [address] documented as of this encounter Visit Diagnoses Not on filedocumented in this encounter Additional Health Concerns Assessment Noted Time PHQ-9 Depression Total Score: 14 025 4:01 PM EDT documented as of this encounter Care Teams Pipe Fitter Supervisor Maintenance Relationship Specialty Start Date End Date Lizbet Parks MD [address] [place] [address] PCP - General Internal Medicine 11/06/22 Sonia Hartman, PharmD [address] [place] [address] [phone] Pharmacist Internal Medicine 07/31/24 Emilie Zamora Primer AssemblerPoultry Cleaner 08/18/24 documented as of this encounter
--- OUTSIDE RECORDS SUMMARY | 2025-01-31 10:51 | XMS_ITS | Encounter Summary ---
Author Organization [employer] Address [address] [place] [address] 7 [place] [address] Care Team Providers Care Fun House Attendant Name Role Phone Lizbet Parks MD Primary Care Pro vider Mg Hanna Unavailable Sonia Hartman PharmD Unavailable [phone] Reason for Visit * Reason Comments Med Refill Encounter Details Date Type Department Care Team (Late st Contact Info) Description 09/02/2023 Refill [facility] 230 [place], [place] [phone] Lizbet Parks MD 230 [place], [place] [phone] Social History Tobacco Use Types Packs/Day Years [...] Description 02/28/2025 10:00 AM EDT Medication Management [facility] [address] [place] [address] Sonia Hartman, PharmD [address] [place] [address] 03/22/2025 10:30 AM EDT Office Visit [facility] [address] [place] [address] Lizbet Parks MD [address] [place] [address] documented as of this encounter Visit Diagnoses Not on filedocumented in this encounter Additional Health Concerns Assessment Noted Time PHQ-9 Depression Total Score: 3 02/27/20 23 11:54 AM EDT documented as of this encounter Care Teams Fun House Attendant Relationship Specialty Start Date End Date Lizbet Parks MD [address] [place] [address] PCP - General Internal Medicine 11/06/22 Mg Hanna Community Health Worker 09/27/2301/03 Sonia Hartman, NehemiasD [address] [place] [address] Pharmacist Internal Medicine 07/31/24 Emilie Zamora Accounts CollectorVeterinary Radiologist 08/18/24 documented as of this encounter
--- OUTSIDE RECORDS SUMMARY | 2025-01-31 10:51 | XMS_ITS | Encounter Summary ---
Author Organization [employer] Address [address] [facility] 7t [place] [address] Care Team Providers Care Tool Coordinator Name Role Phone Lizbet Parks MD Primary Care Pro vider Sonia Hartman PharmD Unavailable [phone] Encounter Details Date Type Department Care Team (Late st Contact Info) Description 07/21/2024 Orders Only [facility] 230 [place], [place] [phone] Karolina Tariq, ANP 230 [place], [place] [phone] Social History Tobacco Use Types Packs/Day Years [...] 10:00 AM EDT Medication Management [facility] [address] [place] [address] Sonia Hartman, PharmD [address] [place] [address] 03/22/2025 10:30 AM EDT Office Visit [facility] [address] [place] [address] Lizbet Parks MD [address] [place] [address] documented as of this encounter Visit Diagnoses Not on filedocumented in this encounter Additional Health Concerns Assessment Noted Time PHQ-9 Depression Total Score: 9 01/18/20 24 2:37 PM EDT documented as of this encounter Care Teams Tool Coordinator Relationship Specialty Start Date End Date Lizbet Parks MD [address] [place] [address] PCP - General Internal Medicine 11/06/22 Sonia Hartman, NehemiasD [address] [place] [address] Pharmacist Internal Medicine 07/31/24 Emilie Zamora Claim ExaminerSpiral Machine Operator 08/18/24 documented as of this encounter
--- OUTSIDE RECORDS SUMMARY | 2025-01-31 10:51 | XMS_ITS | Encounter Summary ---
Author Organization [employer] Address [address] [place] [address] 7 [place] [address] Care Team Providers Care Facilities Manager Name Role Phone Lizbet Parks MD Primary Care Pro vider Mg Hanna Unavailable Sonia Hartman PharmD Unavailable Reason for Visit * Reason Onset Date Comments Nurse Triage 09/28/2023 Encounter Details Date Type Department Care Team (Late st Contact Info) Description 09/28/2023 Telephone [facility] 230 [place], [place] [phone] Lizbet Parks MD 230 [place], [place] [phone] Nurse Triage Social History Tobacco Use Types [...] 09/28/2023 11:08 AM EDT Triage call with [employer] Operator [place] [id number] Pt reports didn't sleep well last night due to back, neck and left arm pain. Pt reports this pain has continued since accident occurred at work September 07. Pt reports left arm has some numbness and tingling and it is difficult to do daily activities at this time. Pt also reports headache, blurred vision. Pt does have referral for [facility] eye center and advised to wait for [...] 10/14/23. Pt is advised to come to [facility] today, opened today till 8pm and located at [address] [place] [address]. Pt agrees with this disposition and home [...] see PCP The caller accepted this outcome Arabic speaker documented in this encounter Plan of Treatment Upcoming Encounters Date Type Department Care Team (Late st Contact Info) Description 02/28/2025 10:00 AM EDT Medication Management [facility] [address] [place] [address] Sonia Hartman PharmD [address] [place] [address] 03/22/2025 10:30 AM EDT Office Visit [facility] [address] [place] [address] Lizbet Parks MD [address] [place] [address] documented as of this encounter Visit Diagnoses Not on filedocumented in this encounter Additional Health Concerns Assessment Noted Time PHQ-9 Depression Total Score: 3 02/27/20 11:54 AM EDT documented as of this encounter Care Teams Facilities Manager Relationship Specialty Start Date End Date Lizbet Parks MD [address] [place] [phone] PCP - General Internal Medicine 11/06/22 Mg Hanna Community Health Worker 09/27/2301/03 Sonia Hartman PharmD [address] [place] [address] Pharmacist Internal Medicine 07/31/24 Emilie Zamora Car CheckerGinner Helper 08/18/24 documented as of this encounter
--- OUTSIDE RECORDS SUMMARY | 2025-01-31 10:51 | XMS_ITS | Clinical Summary ---
Author Organization [address] [place] [address] Address [address] [place] [address] Phone Care Team Providers Care Glaze Carrier Name Role Phone Lizbet Parks MD Primary [...] Diagnosed Date T2DM (type 2 diabetes mellitus) ([facility] V24, CM S/[facility] V28) 04/14/2024 Vaginal dryness, menopausal 04/14/2024 Hypertriglyceridemia 04/14/2024 Mild major depression ([facility] V24) 04/14/2024 Brain concussion 04/14/2024 Sleep [...] patient's age to complete this topic Insurance [facility] Care Teams Glaze Carrier Relationship Specialty Start Date End Date Lizbet Parks MD [address] [facility] 9 [place] [phone] PCP - General 01/20/24
--- OUTSIDE RECORDS SUMMARY | 2025-01-31 10:51 | XMS_ITS | Encounter Summary ---
Author Organization [employer] Address [address] [facility] 7 [place] [address] Care Team Providers Care Line Tester Name Role Phone Lizbet Parks MD Primary Care Pro vider Sonia Hartman PharmD Unavailable [phone]- [phone] Encounter Details Date Type Department Care Team (Late st Contact Info) Description 01/30/2025 Orders Only [facility]INE 230 [place], [place] [phone] Lizbet Parks MD 230 [place] [address] Hyperkalemia (Primary Dx) Social History Tobacco Use Types [...] Description 02/28/2025 10:00 AM EDT Medication Management [facility] MED[facility]INE [address] [place] [address] Sonia Hartman, PharmD [address] [place] [address] 03/22/2025 10:30 AM EDT Office Visit [facility]INE [address] [place] [address] Lizbet Parks MD [address] [place] [address] Scheduled Orders Name Type Priority Associated Diagnoses Orde r Schedule Potassium Lab Routine Hyperkalemia Expected: 01/30/2025, Expires: 01/30/2026 documented as of this encounter Visit Diagnoses Diagnosis Hyperkalemia- Primary Hyperpotassemia documented in this encounter Additional Health Concerns Assessment Noted Time PHQ-9 Depression Total Score: 14 025 4:01 PM EDT documented as of this encounter Care Teams Line Tester Relationship Specialty Start Date End Date Lizbet Parks MD 230 [place], [place] [phone] PCP - General Internal Medicine 11/06/22 Sonia Hartman PharmD 230 [place], [place] [phone] Pharmacist Internal Medicine 07/31/24 Emilie Zamora Rag Sorter And CutterNight Manager 08/18/24 documented as of this encounter
--- OUTSIDE RECORDS SUMMARY | 2025-01-31 10:51 | XMS_ITS | Encounter Summary ---
Author Organization [employer] Address [address] [facility] 7t [place] [address] Care Team Providers Care Neon Sign Servicer Name Role Phone Lizbet Parks MD Primary Care Pro vider Mg Hanna Unavailable Sonia Hartman PharmD Unavailable [phone] Reason for Visit * Reason Comments Med Refill Encounter Details Date Type Department Care Team (Late st Contact Info) Description 04/08/[address] [facility] [address] [place] [address] Rosario Vega FNP Social History Tobacco Use [...] Description 02/28/2025 10:00 AM EDT Medication Management [facility] [address] [place] [phone] Sonia Hartman PharmD [address] [place] [address] 03/22/2025 10:30 AM EDT Office Visit [facility] [address] [place] [address] Lizbet Parks MD [address] [place] [address] documented as of this encounter Visit Diagnoses Not on filedocumented in this encounter Additional Health Concerns Assessment Noted Time PHQ-9 Depression Total Score: 3 02/27/20 23 11:54 AM EDT documented as of this encounter Care Teams Neon Sign Servicer Relationship Specialty Start Date End Date Lizbet Parks MD [address] [place] [address] PCP - General Internal Medicine 11/06/22 Mg Hanna Community Health Worker 09/27/2301/03 Sonia Hartman PharmD [address] [place] [address] Pharmacist Internal Medicine 07/31/24 Emilie Zamora Edge Trimmer MechanicRounder And Backer 08/18/24 documented as of this encounter
--- OUTSIDE RECORDS SUMMARY | 2025-01-31 10:51 | XMS_ITS | Encounter Summary ---
Author Organization [employer] Address [address] [facility] [address] 7t [place] [address] Care Team Providers Care Parts Department Manager Name Role Phone Lizbet Parks MD Primary Care Pro vider Sonia Hartman PharmD Unavailable [phone] Reason for Visit * Reason Comments Med Refill Encounter Details Date Type Department Care Team (Late st Contact Info) Description 10/24/2024 Refill [facility] 230 [place], [place] [phone] Monika Carrera NP 230 [place], [place] [phone] Social History Tobacco Use Types Packs/Day Years [...] Description 02/28/2025 10:00 AM EDT Medication Management [facility] [address] [place] [address] Sonia Hartman, PharmD [address] [place] [address] 03/22/2025 10:30 AM EDT Office Visit [facility] [address] [place] [address] Lizbet Parks MD [address] [place] [address] documented as of this encounter Visit Diagnoses Not on filedocumented in this encounter Additional Health Concerns Assessment Noted Time PHQ-9 Depression Total Score: 9 01/18/20 24 2:37 PM EDT documented as of this encounter Care Teams Parts Department Manager Relationship Specialty Start Date End Date Lizbet Parks MD [address] [place] [address] PCP - General Internal Medicine 11/06/22 Sonia Hartman, NehemiasD [address] [place] [address] Pharmacist Internal Medicine 07/31/24 Emilie Zamora Classified Ad ClerkPlant Protection Superintendent 08/18/24 documented as of this encounter
--- OUTSIDE RECORDS SUMMARY | 2025-01-31 10:51 | XMS_ITS | Encounter Summary ---
Author Organization [employer] Address [address] [facility] 7 [place] [address] Care Team Providers Care Business Process Analyst Name Role Phone Lizbet Parks MD Primary Care Pro vider gM Hanna Unavailable Sonia Hartman PharmD Unavailable Reason for Visit * Reason Comments Med Refill Encounter Details Date Type Department Care Team (Late st Contact Info) Description 05/06/2023 Refill [facility] [address] [place] [address] Lizbet Parks MD 230 [place], [place] [phone] Pain Social History Tobacco Use Types Packs/Day [...] Description 02/28/2025 10:00 AM EDT Medication Management [facility]INE [address] [place] [address] Sonia Hartman, PharmD [address] [place] [address] 03/22/2025 10:30 AM EDT Office Visit [facility] [address] [place] [address] Lizbet Parks MD [address] [place] [address] documented as of this encounter Visit Diagnoses Diagnosis Pain Generalized pain documented in this encounter Additional Health Concerns Assessment Noted Time PHQ-9 Depression Total Score: 3 02/27/20 23 11:54 AM EDT documented as of this encounter Care Teams Business Process Analyst Relationship Specialty Start Date End Date Lizbet Parks MD [address] [place] [address] PCP - General Internal Medicine 11/06/22 Mg Hanna Community Health Worker 09/27/2301/03 Sonia Hartman, Camila [address] [place] [address] Pharmacist Internal Medicine 07/31/24 Emilie Zamora Fur FinisherCounseling Center Director 08/18/24 documented as of this encounter
--- OUTSIDE RECORDS SUMMARY | 2025-01-31 10:51 | XMS_ITS | Clinical Summary ---
Author Organization [facility] Address [address] [facility] [address] [place] [phone] Phone Care Team Providers Care Pool Player Name Role Phone Lottie Schuler MD Primary [...] Medical Devices Not on file Insurance [facility] PCP SAVI PRADO CONNECTORCARE WELLSENSE NON NSPG PCP SILVER CLARITY CONNECTORCARE WELLSENSE NON NSPG PCP SILVER CLARITY CONNECTORCARE WELLSENSE NON NSPG PCP SILVER CLARITY CONNECTORCARE WELLSENSE NON NSPG PCP SILVER CLARITY CONNECTORCARE WELLSENSE NON NSPG PCP SILVER CLARITY CONNECTORCARE WELLSENSE NON NSPG PCP SILVER CLARITY CONNECTORCARE WELLSENSE NON NSPG PCP SAVI PRADO CONNECTORCARE Care Teams Pool Player Relationship Specialty Start Date End Date Lottie Schuler MD [address] [place] [address] [place] [phone] PCP - General Internal Medicine 11/23/17 Additional Source Comments The information contained in this document represents components of the legal health record. It is not the complete legal health record.[facility]
[2025-01-31 12:00] LABS: Anion Gap 14 (12-20); Blood Urea Nitrogen 11 mg/dL (9-16); Calcium 9.1 mg/dL (8.4-10.2); Carbon Dioxide 27 mmol/L (22-29); Chloride 101 mmol/L (96-108); Estimated Glomerular Filt Rate > 60; Potassium 4.5 mmol/L (3.3-5.1); Sodium 137 mmol/L (135-145)
== END 2025-01-31 10:03 | disposition home or self-care (01) ==
LOC: HO.HHCL 10:02
PROVIDERS: PCP Student in an Organized Health Care Education/Training Program; Referring Provider Student in an Organized Health Care Education/Training Program; Visit Provider Family Medicine
DX: R53.83 Other fatigue (principal)
CPT/HCPCS: 36415; 80048